=== PATIENT | female | born 1960 | race Caucasian/White ===

== ENCOUNTER 2018-12-13 08:34 | Observation (INO) | payer MEDICAID ==
--- NOTE | 2018-12-13 09:03 | EDM.PDOC ---
ED HPI GENERAL MEDICAL PROBLEM - General Chief Complaint: General Stated Complaint: Dizziness Time Seen by Provider: 12/13/18 08:52 Source of Information: Reports: Patient History Limitations: Reports: No Limitations - History of Present Illness INITIAL COMMENTS - FREE TEXT/NARRATIVE: Patient comes to ER via EMS complaining of headache and dizziness. Had episode of feeing cold/clammy and some left hand tingling earlier but that resolved. Symptoms noted after she woke up from her night's sleep this morning. [place] fine yesterday. States that last time she felt like this she had a UTI. Denies UTI complaints. Feels better if she lays down. Head rotation does not trigger dizziness/vertigo or make it worse. EKG performed by EMS showed normal sinus rhythm, no ectopy or acute ST changes. No fevers/chills. Has frontal bilateral headache. Denies vision changes. Says that she "saw spots " and felt like she might pass out when she first tried to get up today. No ear pain. No URI complaints. Resp negative for cough/wheeze/SOB or other changes. CV negative for chest pain or palpitations. No GI changes, denies nausea, emesis, stool change. Is eating and drinking well. Had some milk this morning in case her symptoms were due to hypoglycemia. No change noted afterward. No focal numbness/weakness or other neuro changes at this time. Patient does not check own blood sugars at home. Glucose monitor broken. Tells us she usually runs in the 200s when checked. Headache Pain Score (Numeric/FACES): 6 - Related Data Allergies Allergy/AdvReac Type Severity Reaction Status Date / Time Penicillins Allergy Rash Verified 12/13/18 08:36 Home Meds: Home Meds Simvastatin [Zocor] 40 mg PO BEDTIME 07/19/16 [History] metFORMIN [Glucophage] 1,000 mg PO BID 07/19/16 [History] Albuterol [Proventil HFA] 2 puff INH Q4H PRN 07/20/16 [History] Aspirin 81 mg PO DAILY 07/20/16 [History] Insulin Glargine,Hum.Rec.Anlog [Shawn Isaacs] 38 units SUBCUT DAILY 12/13/18 [History] Valproic Acid 500 mg PO BEDTIME 12/13/18 [History] Valproic Acid [Depakene] 250 mg PO BID@08,16 12/13/18 [History] Past Medical History HEENT History: Reports: Impaired Vision, Other (See Below) Other HEENT History: wears glasses Cardiovascular History: Reports: High Cholesterol Respiratory History: Reports: Asthma Gastrointestinal History: Reports: None Genitourinary History: Reports: Urinary Incontinence, Other (See Below) Other Genitourinary History: occasional bladder infections, Musculoskeletal History: Reports: Other (See Below) Other Musculoskeletal History: Lt ankle fracture Neurological History: Reports: Migraines, Seizure, Other (See Below) Other Neuro History: epilepsy Psychiatric History: Reports: None Endocrine/Metabolic History: Reports: Diabetes, Type II, IDDM, Obesity/BMI 30+ Hematologic History: Reports: None Immunologic History: Reports: None Oncologic (Cancer) History: Reports: None Dermatologic History: Reports: Eczema - Infectious Disease History Infectious Disease History: Reports: Chicken Pox, Influenza - Past Surgical History HEENT Surgical History: Reports: Other (See Below) Respiratory Surgical History: Reports: None GI Surgical History: Reports: None Musculoskeletal Surgical History: Reports: Carpal Tunnel Oncologic Surgical History: Reports: None Social & Family History - Tobacco Use Smoking Status *Q: Never Smoker - Caffeine Use Caffeine Use: Reports: Coffee - Alcohol Use Alcohol Use History: No - Recreational Drug Use Recreational Drug Use: No ED ROS GENERAL - Review of Systems Review Of Systems: ROS reveals no pertinent complaints other than HPI. ED EXAM, GENERAL - Physical Exam Exam: See Below Exam Limited By: No Limitations General Appearance: Alert, No Apparent Distress, Obese, Other (sleeping) Eye Exam: Bilateral Eye: EOMI, PERRL Ears: Normal External Exam, Normal Canal, Hearing Grossly Normal, Normal TMs Nose: No: Nasal Deformity, Nasal Swelling, Nasal Drainage Throat/Mouth: Normal Lips, Normal Voice, No Airway Compromise Head: Atraumatic, Normocephalic Neck: Supple, Non-Tender, Full Range of Motion Respiratory/Chest: No Respiratory Distress, Lungs Clear, Normal Breath Sounds, No Accessory Muscle Use, Chest Non-Tender Cardiovascular: Regular Rate, Rhythm, No Murmur Peripheral Pulses: 2+: Radial (L), Radial (R) GI/Abdominal: Normal Bowel Sounds, Soft, Non-Tender, No Distention (Female) Exam: Deferred Rectal (Female) Exam: Deferred Back Exam: No: CVA Tenderness (L), CVA Tenderness (R) Extremities: Non-Tender, No Pedal Edema, Normal Capillary Refill Neurological: Alert, Oriented, No Motor/Sensory Deficits, Other (able to ambulate to/from bathroom, slow gait, with assistance due to lightheadedness complaint) Psychiatric: Normal Affect, Normal Mood Skin Exam: Warm, Dry, Intact, Normal Color Course - Vital Signs Last Recorded V/S: Last Vital Signs Temp 36.4 C 12/13/18 08:34 Pulse 57 L 12/13/18 08:34 Resp 17 12/13/18 09:30 BP 143/63 H 12/13/18 09:30 Pulse Ox 96 12/13/18 09:30 - Orders/Labs/Meds Orders: Active Orders 24 hr Category Date Time Status COMPREHENSIVE METABOLIC PN,CMP [CHEM] Stat Lab 12/13/18 09:04 Ordered GLYCOSYLATED HEMOGLOBIN,HGBA1C [CHEM] Stat Lab 12/13/18 09:07 Ordered LACTIC ACID [CHEM] Stat Lab 12/13/18 09:06 Ordered TROPONIN I [CHEM] Stat Lab 12/13/18 09:04 Ordered UA W/MICROSCOPIC [URIN] Stat Lab 12/13/18 09:04 Ordered VALPROIC ACID [CHEM] Stat Lab 12/13/18 09:05 Ordered Labs: Laboratory Tests 12/13/18 12/13/18 Range/Units 09:10 09:20 WBC 7.7 (4.0-10.2) K/uL RBC 4.20 (3.77-5.09) M/uL Hgb 12.2 (11.7-15.5) g/dL Hct 36.6 (34.0-46.0) % MCV 87.1 (84.0-98.0) fL MCH 29.0 (28.2-33.3) pg MCHC 33.3 (31.7-36.0) g/dL RDW 14.8 H (11.2-14.1) % Plt Count 165 (150-350) K/uL Neut % (Auto) 52.3 (45.0-80.0) % Lymph % (Auto) 36.1 (10.0-50.0) % [place] % (Auto) 9.3 (2.0-14.0) % Eos % (Auto) 2.2 (0.0-5.0) % Baso % (Auto) 0.1 (0.0-2.0) % Neut # (Auto) 4.03 (1.40-7.00) K/uL Lymph # (Auto) 2.79 (0.50-3.50) K/uL [place] # (Auto) 0.72 (0.00-1.00) K/uL Eos # (Auto) 0.17 (0.00-0.50) K/uL Baso # (Auto) 0.01 (0.00-0.20) K/uL Urine Color Yellow Urine Appearance Cloudy Urine pH 5.5 (5.0-9.0) Ur Specific [place] 1.015 (1.005-1.030) Urine Protein Negative (NEGATIVE) mg/dL Urine Glucose (UA) 100 H (NEGATIVE) mg/dL Urine Ketones Trace H (NEGATIVE) mg/dL Urine Occult Blood Trace-intact H (NEGATIVE) Urine Nitrite Negative (NEGATIVE) Urine Bilirubin Negative (NEGATIVE) Urine Urobilinogen 1.0 (0.2-1.0) E.U./dL Ur Leukocyte Esterase Small H (NEGATIVE) - Re-Assessments/Exams Free Text/Narrative Re-Assessment/Exam: Exam and workup showed that UTI present. UC ordered. Glu 222 Lactic acid 2.9 A1c 10 Given complaint of dizziness, elevated lactic acid, and some concern about patient's ability for self care at home (as exhibited by poor glucose control and monitoring at home) it was felt that the best option for now would be to admit the pt to observation. She will be able to receive several doses of IV Rocephin and then be switched to oral medications at time of discharge. Recheck of lactic acid planned for tomorrow. IV fluids planned. Patient is aware that there is a statistical chance of cross reaction to Rocephin IV given her remote history of rash s/p PCN therapy. She is agreeable with trying Rocephin as first line antibiotic for the UTI given it is usually a very good choice in treating UTIs. Departure - Departure Time of Disposition: 09:58 Disposition: Refer to Observation Condition: Good Clinical Impression: UTI (urinary tract infection), bacterial - Discharge Information *PRESCRIPTION DRUG MONITORING PROGRAM REVIEWED*: Not Applicable *COPY OF PRESCRIPTION DRUG MONITORING REPORT IN PATIENT GREY: Not Applicable Referrals: Shanel Feliz PA [Primary Care Provider] - Forms: ED Department Discharge - Problem List & Annotations (1) UTI (urinary tract infection), bacterial SNOMED Code(s): 105154939 Code(s): N39.0 - URINARY TRACT INFECTION, SITE NOT SPECIFIED; A49.9 - BACTERIAL INFECTION, UNSPECIFIED Status: Acute Priority: High Current Visit: Yes Onset Date: ~12/13/18 Annotation/Comment:: Urine culture pending. Will initiate IV Rocephin and IV fluids. (2) Diabetes SNOMED Code(s): 07105890 Code(s): E11.9 - TYPE 2 DIABETES MELLITUS WITHOUT COMPLICATIONS Status: Chronic Priority: Medium Current Visit: Yes Annotation/Comment:: Very poor control. Patient is not monitoring own blood glucose levels at home and is making poor dietary choices. A1C is over 10 today. Will initiate regular bedside glucose checks and monitor patient's trends. 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 To follow up with primary clinic for continued care. Qualifiers: Hyperlipidemia type: unspecified Qualified Code(s): E78.5 - Hyperlipidemia , unspecified (4) Asthma SNOMED Code(s): 183068708 Code(s): J45.909 - UNSPECIFIED ASTHMA, UNCOMPLICATED Status: Chronic Priority: Low Current Visit: No Annotation/Comment:: Currently stable per patient Qualifiers: Asthma severity: unspecified severity Asthma complication type: uncomplicated (5) Epilepsy SNOMED Code(s): 29828131 Code(s): G40.909 - EPILEPSY, UNSP, NOT INTRACTABLE, WITHOUT STATUS EPILEPTICUS Status: Chronic Priority: Low Current Visit: No Annotation/ Comment:: Has been stable per patient. Qualifiers: Epilepsy type: unspecified Intractability: not intractable Status epilepticus: without status epilepticus Qualified Code(s): G40.909 - Epilepsy , unspecified, not intractable, without status epilepticus - Problem List Review Problem List Initiated/Reviewed/Updated: Yes - My Orders Last 24 Hours: My Active Orders 12/13/18 09:04 COMPREHENSIVE METABOLIC PN,CMP [CHEM] Stat TROPONIN I [CHEM] Stat UA W/MICROSCOPIC [URIN] Stat 12/13/18 09:05 VALPROIC ACID [CHEM] Stat 12/13/18 09:06 LACTIC ACID [CHEM] Stat 12/13/18 09:07 GLYCOSYLATED HEMOGLOBIN,HGBA1C [CHEM] Stat - Assessment/Plan Admission H&P: Please use this note as an admission H&P Last 24 Hours: My Active Orders 12/13/18 09:04 COMPREHENSIVE METABOLIC PN,CMP [CHEM] Stat TROPONIN I [CHEM] Stat UA W/MICROSCOPIC [URIN] Stat 12/13/18 09:05 VALPROIC ACID [CHEM] Stat 12/13/18 09:06 LACTIC ACID [CHEM] Stat 12/13/18 09:07 GLYCOSYLATED HEMOGLOBIN,HGBA1C [CHEM] Stat Assessment:: as above. UTI. Poorly controlled diabetes. Plan: As above. Anticipate 24-48 hours of inpatient observation. Patient stable and suitable for generalized supervision.
[2018-12-13 09:36] LABS: HEMOGLOBIN A1C 10.3 % (4.3-5.7)
[2018-12-13] MEDS ORDERED: cefTRIAXone 1 GM in Sodium Chloride 0.9% 100 ML IV ONE (09:46)
[2018-12-13] MEDS ORDERED: Ondansetron 4 MG Tab.DIS PO PRN (11:15)
[2018-12-13] MEDS ORDERED: Acetaminophen 325 MG Tab PO PRN (11:15)
[2018-12-13] MEDS ORDERED: Ondansetron 4 MG/2 ML SDV IVPUSH PRN (11:15)
[2018-12-13] MEDS ORDERED: Sodium Chloride 0.9% 1,000 ML IV ONE (11:19)
[2018-12-13] MEDS: Valproic Acid 250 MG Cap PO SCH ×2 (16:16→19:51)
[2018-12-13] MEDS: Insulin Regular, Human 100 Units/ML 3 ML Vial SUBCUT SCH (17:05)
[2018-12-13] MEDS: metFORMIN 500 MG Tab PO SCH (17:05)
[2018-12-13] MEDS: Simvastatin 20 MG Tab PO SCH (19:51)
[2018-12-14] MEDS: Aspirin 81 MG Tab.Chew PO SCH (08:40)
[2018-12-14] MEDS: Insulin Regular, Human 100 Units/ML 3 ML Vial SUBCUT SCH ×2 (08:40→17:23)
[2018-12-14] MEDS: Valproic Acid 250 MG Cap PO SCH ×3 (08:40→19:56)
[2018-12-14] MEDS: metFORMIN 500 MG Tab PO SCH ×2 (08:40→17:23)
[2018-12-14] MEDS ORDERED: cefTRIAXone 1 GM in Sodium Chloride 0.9% 100 ML IV ONE (10:00)
--- NOTE | 2018-12-14 13:41 | PCM.DCSUM1 ---
Discharge Summary - Hospital Course Brief History: Admitted for treatment of UTI in patient with DM, dizziness/ weakness. Diagnosis: Stroke: No - Discharge Data Discharge Date: 12/15/18 Discharge Disposition: Home, Self-Care 01 Condition: Good - Discharge Diagnosis/Problem(s) (1) UTI (urinary tract infection), bacterial SNOMED Code(s): 214666863 ICD Code: N39.0 - URINARY TRACT INFECTION, SITE NOT SPECIFIED; A49.9 - BACTERIAL INFECTION, UNSPECIFIED Status: Acute Priority: High Current Visit: Yes Onset Date: ~12/13/18 Problem Details: Urine culture pending. Receiving Rocephin. Will be discharged home on Macrobid. (2) Diabetes SNOMED Code(s): 91871450 ICD Code: E11.9 - TYPE 2 DIABETES MELLITUS WITHOUT COMPLICATIONS Status: Chronic Priority: Medium Current Visit: Yes Problem Details: Very poor control. Patient is not monitoring own blood glucose levels at home and is making poor dietary choices. A1C is over 10. To follow up closely with primary provider. 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 To follow up with primary clinic for continued care. Qualifiers: Hyperlipidemia type: unspecified Qualified Code(s): E78.5 - Hyperlipidemia , unspecified (4) Asthma SNOMED Code(s): 484992037 ICD Code: J45.909 - UNSPECIFIED ASTHMA, UNCOMPLICATED Status: Chronic Priority: Low Current Visit: No Problem Details: Currently stable per patient Qualifiers: Asthma severity: unspecified severity Asthma complication type: uncomplicated (5) Epilepsy SNOMED Code(s): 70699577 ICD Code: G40.909 - EPILEPSY, UNSP, NOT INTRACTABLE, WITHOUT STATUS EPILEPTICUS Status: Chronic Priority: Low Current Visit: No Problem Details: Has been stable per patient. Qualifiers: Epilepsy type: unspecified Intractability: not intractable Status epilepticus: without status epilepticus Qualified Code(s): G40.909 - Epilepsy , unspecified, not intractable, without status epilepticus - Patient Summary/Data Complications: none Hospital Course: Unremarkable hospital course. Dizziness and fatigue are improving. Patient appears to be ambulating well. Plan is to let patient return home tomorrow morning and continue oral antibiotic therapy for the UTI. - Patient Instructions Diet: Diabetic Diet Activity: As Tolerated Showering/Bathing: May Shower Other/Special Instructions: occupational therapy teacher the Macrobid prescription and start that Saturday12/15/18. Follow up as needed if symptoms do not resolve. Follow up with your clinic regarding your other chronic medical problems, including your diabetes. - Discharge Plan *PRESCRIPTION DRUG MONITORING PROGRAM REVIEWED*: Not Applicable *COPY OF PRESCRIPTION DRUG MONITORING REPORT IN PATIENT GREY: Not Applicable Prescriptions/Med Rec: Nitrofurantoin Monohyd/M-Cryst [Macrobid 100 mg Capsule] 100 mg PO Q12HR #10 capsule Home Medications: Home Meds Simvastatin [Zocor] 40 mg PO BEDTIME 07/19/16 [History] metFORMIN [Glucophage] 1,000 mg PO BID 07/19/16 [History] Albuterol [Proventil HFA] 2 puff INH Q4H PRN 07/20/16 [History] Aspirin 81 mg PO DAILY 07/20/16 [History] Insulin Glargine,Hum.Rec.Anlog [Tohannah Solrosa] 38 units SUBCUT DAILY 12/13/18 [History] Valproic Acid 500 mg PO BEDTIME 12/13/18 [History] Valproic Acid [Depakene] 250 mg PO BID@08,16 12/13/18 [History] Nitrofurantoin Monohyd/M-Cryst [Macrobid 100 mg Capsule] 100 mg PO Q12HR #10 capsule 12/14/18 [Rx] Patient Handouts: Ceftriaxone injection, Urinary Tract Infection, Adult Forms: ED Department Discharge Referrals: Shanel Feliz PA [Primary Care Provider] - - Discharge Summary/Plan Comment DC Time >30 min.: Yes (to be discharged in AM after morning Rocephin dose) - General Info Date of Service: 12/14/18 Admission Dx/Problem (Free Text: Patient complaining of dizziness/fatigue found to have UTI. Admitted due to accompanying dizziness/weakness and elevated Lactic acid level. Subjective Update: Feeling overall improved. Some residual dizziness and fatigue reported. - Review of Systems General: Reports: Fatigue, Malaise. Denies: Fever, Chills, Night Sweats HEENT: Reports: Glasses. Denies: Ear Pain, Headaches, Sinus Congestion, Rhinitis, Visual Changes Pulmonary: Reports: No Symptoms Cardiovascular: Reports: Lightheadedness. Denies: Chest Pain, Palpitations, Dyspnea on Exertion, Orthopnea Gastrointestinal: Reports: No Symptoms Genitourinary: Reports: No Symptoms Musculoskeletal: Reports: No Symptoms Skin: Reports: No Symptoms Neurological: Reports: Dizziness, Difficulty Walking (feels some dizziness with ambulation). Denies: Confusion, Headache, Syncope, Weakness Psychiatric: Reports: No Symptoms - Patient Data Vitals - Most Recent: Last Vital Signs Temp 36.2 C 12/14/18 08:00 Pulse 65 12/14/18 08:00 Resp 16 12/14/18 08:00 BP 146/73 H 12/14/18 08:00 Pulse Ox 100 12/14/18 08:00 Weight - Most Recent: 91.399 kg I&O - Last 24 hours: Intake & Output 12/13/18 12/14/18 12/14/18 22:59 06:59 14:59 Intake Total 310 480 Output Total 700 200 Balance -390 -200 480 Lab Results - Last 24 hrs: Laboratory Results - last 24 hr 12/13/18 12/13/18 12/14/18 Range/Units 16:52 20:02 07:20 WBC (4.0-10.2) K/uL RBC (3.77-5.09) M/uL Hgb (11.7-15.5) g/dL Hct (34.0-46.0) % MCV (84.0-98.0) fL MCH (28.2-33.3) pg MCHC (31.7-36.0) g/dL RDW (11.2-14.1) % Plt Count (150-350) K/uL Neut % (Auto) (45.0-80.0) % Lymph % (Auto) (10.0-50.0) % [place] % (Auto) (2.0-14.0) % Eos % (Auto) (0.0-5.0) % Baso % (Auto) (0.0-2.0) % Neut # (Auto) (1.40-7.00) K/uL Lymph # (Auto) (0.50-3.50) K/uL [place] # (Auto) (0.00-1.00) K/uL Eos # (Auto) (0.00-0.50) K/uL Baso # (Auto) (0.00-0.20) K/uL Sodium (136-145) mmol/L Potassium (3.5-5.1) mmol/L Chloride (98-107) mmol/L Carbon Dioxide (21.0-32.0) mmol/L BUN (7-18) mg/dL Creatinine (0.51-1.17) mg/dL Est Cr Clr Drug Dosing mL/min Estimated GFR (MDRD) mL/min Glucose (74-106) mg/dL POC Glucose 195 H 217 H (65-110) mg/dl Lactic Acid 1.6 (0.4-2.0) mmol/L Calcium (8.5-10.1) mg/dL 12/14/18 12/14/18 12/14/18 Range/Units 07:20 07:20 07:24 WBC 6.7 (4.0-10.2) K/uL RBC 4.43 (3.77-5.09) M/uL Hgb 12.8 (11.7-15.5) g/dL Hct 39.5 (34.0-46.0) % MCV 89.2 (84.0-98.0) fL MCH 28.9 (28.2-33.3) pg MCHC 32.4 (31.7-36.0) g/dL RDW 15.0 H (11.2-14.1) % Plt Count 164 (150-350) K/uL Neut % (Auto) 51.1 (45.0-80.0) % Lymph % (Auto) 39.3 (10.0-50.0) % [place] % (Auto) 7.6 (2.0-14.0) % Eos % (Auto) 1.9 (0.0-5.0) % Baso % (Auto) 0.1 (0.0-2.0) % Neut # (Auto) 3.44 (1.40-7.00) K/uL Lymph # (Auto) 2.65 (0.50-3.50) K/uL [place] # (Auto) 0.51 (0.00-1.00) K/uL Eos # (Auto) 0.13 (0.00-0.50) K/uL Baso # (Auto) 0.01 (0.00-0.20) K/uL Sodium 140 (136-145) mmol/L Potassium 5.1 (3.5-5.1) mmol/L Chloride 103 (98-107) mmol/L Carbon Dioxide 29.6 (21.0-32.0) mmol/L BUN 17 (7-18) mg/dL Creatinine 1.24 H (0.51-1.17) mg/dL Est Cr Clr Drug Dosing 36.41 mL/min Estimated GFR (MDRD) 44 mL/min Glucose 145 H (74-106) mg/dL POC Glucose 160 H (65-110) mg/dl Lactic Acid (0.4-2.0) mmol/L Calcium 9.6 (8.5-10.1) mg/dL 12/14/18 Range/Units 11:34 WBC (4.0-10.2) K/uL RBC (3.77-5.09) M/uL Hgb (11.7-15.5) g/dL Hct (34.0-46.0) % MCV (84.0-98.0) fL MCH (28.2-33.3) pg MCHC (31.7-36.0) g/dL RDW (11.2-14.1) % Plt Count (150-350) K/uL Neut % (Auto) (45.0-80.0) % Lymph % (Auto) (10.0-50.0) % [place] % (Auto) (2.0-14.0) % Eos % (Auto) (0.0-5.0) % Baso % (Auto) (0.0-2.0) % Neut # (Auto) (1.40-7.00) K/uL Lymph # (Auto) (0.50-3.50) K/uL [place] # (Auto) (0.00-1.00) K/uL Eos # (Auto) (0.00-0.50) K/uL Baso # (Auto) (0.00-0.20) K/uL Sodium (136-145) mmol/L Potassium (3.5-5.1) mmol/L Chloride (98-107) mmol/L Carbon Dioxide (21.0-32.0) mmol/L BUN (7-18) mg/dL Creatinine (0.51-1.17) mg/dL Est Cr Clr Drug Dosing mL/min Estimated GFR (MDRD) mL/min Glucose (74-106) mg/dL POC Glucose 146 H (65-110) mg/dl Lactic Acid (0.4-2.0) mmol/L Calcium (8.5-10.1) mg/dL Med Orders - Current: Current Medications Acetaminophen (Tylenol) 650 mg PO Q4H PRN PRN Reason: Pain (Mild 1-3)/fever Last Admin: 12/13/18 14:36 Dose: 650 mg Aspirin (Aspirin) 81 mg PO DAILY [facility] Last Admin: 12/14/18 08:40 Dose: 81 mg Insulin Human Regular (Humulin R) 0 unit SUBCUT BIDAC [facility]; Protocol Last Admin: 12/14/18 08:40 Dose: 3 units Metformin HCl (Glucophage) 1,000 mg PO BID [facility] Last Admin: 12/14/18 08:40 Dose: 1,000 mg Ondansetron HCl (Zofran Odt) 4 mg PO Q6H PRN PRN Reason: Nausea/Vomiting Last Admin: 12/13/18 12:01 Dose: 4 mg Ondansetron HCl (Zofran) 4 mg IVPUSH Q6H PRN PRN Reason: Nausea/Vomiting Simvastatin (Zocor) 40 mg PO BEDTIME [facility] Last Admin: 12/13/18 19:51 Dose: 40 mg Valproic Acid (Depakene) 250 mg PO BID@08,16 [facility] Last Admin: 12/14/18 08:40 Dose: 250 mg Valproic Acid (Depakene) 500 mg PO BEDTIME [facility] Last Admin: 12/13/18 19:51 Dose: 500 mg Discontinued Medications Ceftriaxone Sodium 1 gm/ (Sodium Chloride) 100 mls @ 200 mls/hr IV ONETIME ONE Stop: 12/13/18 10:15 Last Admin: 12/13/18 10:31 Dose: 200 mls/hr Ceftriaxone Sodium 1 gm/ (Sodium Chloride) 100 mls @ 200 mls/hr IV ONETIME ONE Stop: 12/14/18 10:29 Last Admin: 12/14/18 09:46 Dose: 200 mls/hr Sodium Chloride (Normal Saline) 1,000 mls @ 150 mls/hr IV .BOLUS ONE Stop: 12/13/18 17:58 Last Admin: 12/13/18 11:55 Dose: 150 mls/hr - Exam General: Reports: Alert, Oriented, Cooperative, No Acute Distress HEENT: Reports: Pupils Equal, Pupils Reactive, EOMI, Mucous Membr. Moist/[place] Neck: Reports: Supple Lungs: Reports: Clear to Auscultation, Normal Respiratory Effort Cardiovascular: Reports: Regular Rate, Regular Rhythm GI/Abdominal Exam: Normal Bowel Sounds, Soft, Non-Tender (Female) Exam: Deferred Rectal (Female) Exam: Deferred Back Exam: Denies: CVA Tenderness (L), CVA Tenderness (R) Extremities: Non-Tender, Normal Capillary Refill Skin: Reports: Warm, Dry Neurological: Reports: No New Focal Deficit Psy/Mental Status: Reports: Alert, Normal Affect, Normal Mood
[2018-12-14] MEDS: Sodium Chloride 0.9% 10 ML Syringe FLUSH SCH (19:45)
[2018-12-14] MEDS: Simvastatin 20 MG Tab PO SCH (19:56)
[2018-12-15] MEDS: Sodium Chloride 0.9% 10 ML Syringe FLUSH SCH (07:51)
[2018-12-15] MEDS: Insulin Regular, Human 100 Units/ML 3 ML Vial SUBCUT SCH (07:51)
[2018-12-15] MEDS: Valproic Acid 250 MG Cap PO SCH (07:52)
[2018-12-15] MEDS: Aspirin 81 MG Tab.Chew PO SCH (07:52)
[2018-12-15] MEDS: metFORMIN 500 MG Tab PO SCH (07:52)
[2018-12-15] MEDS ORDERED: cefTRIAXone 1 GM in Sodium Chloride 0.9% 100 ML IV ONE (08:00)
[2018-12-15 09:28] VITALS: BP 155/72
== END 2018-12-15 09:44 | disposition home or self-care (01) ==
LOC: LL.ED 08:34 → LL.MS 09:45 → UNDOADMOB 09:45
PROVIDERS: ADMIT Emergency Medicine; ATTEND Emergency Medicine
DX: N39.0 Urinary tract infection, site not specified (principal); E11.9 Type 2 diabetes mellitus without complications; J45.909 Unspecified asthma, uncomplicated; G40.909 Epilepsy, unspecified, not intractable, without status epilepticus; E66.9 Obesity, unspecified; Z68.38 Body mass index [BMI] 38.0-38.9, adult; E78.00 Pure hypercholesterolemia, unspecified; Z79.4 Long term (current) use of insulin; Z79.82 Long term (current) use of aspirin; Z79.899 Other long term (current) drug therapy; Z88.0 Allergy status to penicillin
CPT/HCPCS: 36415; 80048; 80053; 80164; 81001; 82962; 83036; 83605; 84484; 85025; 87086; 87088; 87186; 96361; 96365; 96366; 99285; A9270-GY; G0378; J0696; J1815-GY; J7030; J7050

== ENCOUNTER 2018-12-16 08:07 | Inpatient (IN) | payer MEDICAID ==
[2018-12-16] MEDS ORDERED: Sodium Chloride 0.9% 1,000 ML IV ONE (08:18)
[2018-12-16] MEDS ORDERED: Acetaminophen 325 MG Tab PO ONE (08:19)
[2018-12-16] MEDS ORDERED: Ciprofloxacin in D5W 400 MG in Premix Bag 1 BAG IV ONE ×2 (09:31)
--- NOTE | 2018-12-16 09:40 | EDM.PDOC ---
ED HPI GENERAL MEDICAL PROBLEM - General Chief Complaint: General Stated Complaint: altered mental status Time Seen by Provider: 12/16/18 08:17 Source of Information: Reports: Patient History Limitations: Reports: No Limitations - History of Present Illness INITIAL COMMENTS - FREE TEXT/NARRATIVE: Pt seen in ER today with weakness, confusion decreased appetite and fever EMS states fever to 101 Pt discharged yesterday after being treated for UTI Received 3 doses of Rocephin in hospital and started on Macrobid outpatient Pt states she feels much worse today All sensitive on culture and sensitivity Onset: Gradual Duration: Day(s): Location: Reports: Generalized Quality: Reports: Ache, Throbbing Severity: Moderate Worsens with: Reports: Movement Associated Symptoms: Reports: Confusion, Fever/Chills, Loss of Appetite, Malaise , Weakness Treatments RETURN TO FACTORY CLERK: Reports: Other (see below) (Macrobid) - Related Data Allergies Allergy/AdvReac Type Severity Reaction Status Date / Time Penicillins Allergy Rash Verified 12/16/18 08:11 Home Meds: Home Meds Simvastatin [Zocor] 40 mg PO BEDTIME 07/19/16 [History] metFORMIN [Glucophage] 1,000 mg PO BID 07/19/16 [History] Albuterol [Proventil HFA] 2 puff INH Q4H PRN 07/20/16 [History] Aspirin 81 mg PO DAILY 07/20/16 [History] Insulin Glargine,Hum.Rec.Anlog [Toujeo Solostar] 38 units SUBCUT DAILY 12/13/18 [History] Valproic Acid 500 mg PO BEDTIME 12/13/18 [History] Valproic Acid [Depakene] 250 mg PO BID@,16 12/13/18 [History] Nitrofurantoin Monohyd/M-Cryst [Macrobid 100 mg Capsule] 100 mg PO Q12HR #10 capsule 12/14/18 [Rx] Past Medical History HEENT History: Reports: Impaired Vision, Other (See Below) Other HEENT History: wears glasses Cardiovascular History: Reports: High Cholesterol Respiratory History: Reports: Asthma Gastrointestinal History: Reports: None Genitourinary History: Reports: Urinary Incontinence, Other (See Below) Other Genitourinary History: occasional bladder infections, Musculoskeletal History: Reports: Other (See Below) Other Musculoskeletal History: Lt ankle fracture Neurological History: Reports: Migraines, Seizure, Other (See Below) Other Neuro History: epilepsy Psychiatric History: Reports: None Endocrine/Metabolic History: Reports: Diabetes, Type II, IDDM, Obesity/BMI 30+ Hematologic History: Reports: None Immunologic History: Reports: None Oncologic (Cancer) History: Reports: None Dermatologic History: Reports: Eczema - Infectious Disease History Infectious Disease History: Reports: Chicken Pox, Influenza - Past Surgical History HEENT Surgical History: Reports: Other (See Below) Respiratory Surgical History: Reports: None GI Surgical History: Reports: None Musculoskeletal Surgical History: Reports: Carpal Tunnel Oncologic Surgical History: Reports: None Social & Family History - Caffeine Use Caffeine Use: Reports: Coffee ED ROS GENERAL - Review of Systems Review Of Systems: See Below Constitutional: Reports: Fever, Chills Respiratory: Reports: Shortness of Breath Cardiovascular: Reports: No Symptoms GI/Abdominal: Reports: Abdominal Pain, Decreased Appetite : Reports: Dysuria Musculoskeletal: Reports: Muscle Stiffness Neurological: Reports: Confusion Psychiatric: Reports: No Symptoms ED EXAM, GENERAL - Physical Exam Exam: See Below Exam Limited By: No Limitations General Appearance: Moderate Distress Eye Exam: Bilateral Eye: PERRL Ear Exam: Bilateral Ear: TM normal Nose: Normal Inspection Throat/Mouth: Normal Oropharynx Neck: Supple Respiratory/Chest: Crackles Cardiovascular: Regular Rate, Rhythm GI/Abdominal: Soft, Distended, Tender Back Exam: Normal Inspection Extremities: Normal Inspection Neurological: Slow to Respond Psychiatric: Normal Affect Course - Vital Signs Last Recorded V/S: Last Vital Signs Temp 37.8 C 12/16/18 08:14 Pulse 104 H 12/16/18 08:14 Resp 20 12/16/18 08:14 BP 133/69 12/16/18 08:14 Pulse Ox 96 12/16/18 08:14 - Orders/Labs/Meds Orders: Active Orders 24 hr Category Date Time Status Chest 1V Frontal [CR] Stat Exams 12/16/18 08:46 Taken CULTURE BLOOD [BC] Stat Lab 12/16/18 08:35 Received CULTURE BLOOD [BC] Stat Lab 12/16/18 08:50 Received Ciprofloxacin in D5W [Cipro in D5W 400 MG/200 ML] 400 Med 12/16/18 09:31 Active mg Premix Bag 1 bag IV ONETIME Blood Culture x2 Reflex Set [OM.PC] Stat Oth 12/16/18 08:18 Ordered Medication Orders Ciprofloxacin/Dextrose 400 mg/ (Premix) 200 mls @ 200 mls/hr IV ONETIME ONE Stop: 12/16/18 10:30 Labs: Laboratory Tests 12/16/18 12/16/18 12/16/18 Range/Units 08:35 08:35 08:35 WBC 8.6 (4.0-10.2) K/uL RBC 4.74 (3.77-5.09) M/uL Hgb 13.7 (11.7-15.5) g/dL Hct 40.8 (34.0-46.0) % MCV 86.1 D (84.0-98.0) fL MCH 28.9 (28.2-33.3) pg MCHC 33.6 (31.7-36.0) g/dL RDW 15.2 H (11.2-14.1) % Plt Count 149 L (150-350) K/uL Neut % (Auto) 89.0 H (45.0-80.0) % Lymph % (Auto) 4.3 L (10.0-50.0) % [place] % (Auto) 6.6 (2.0-14.0) % Eos % (Auto) 0.0 (0.0-5.0) % Baso % (Auto) 0.1 (0.0-2.0) % Neut # (Auto) 7.63 H (1.40-7.00) K/uL Lymph # (Auto) 0.37 L (0.50-3.50) K/uL [place] # (Auto) 0.57 (0.00-1.00) K/uL Eos # (Auto) 0.00 (0.00-0.50) K/uL Baso # (Auto) 0.01 (0.00-0.20) K/uL Sodium 135 L (136-145) mmol/L Potassium 4.9 (3.5-5.1) mmol/L Chloride 96 L (98-107) mmol/L Carbon Dioxide 25.2 (21.0-32.0) mmol/L BUN 24 H (7-18) mg/dL Creatinine 1.44 H (0.51-1.17) mg/dL Est Cr Clr Drug Dosing 31.35 mL/min Estimated GFR (MDRD) 37 mL/min Glucose 187 H (74-106) mg/dL Lactic Acid 3.3 H (0.4-2.0) mmol/L Calcium 9.7 (8.5-10.1) mg/dL Total Bilirubin 0.6 (0.2-1.0) mg/dL AST 26 (15-37) U/L ALT 26 (12-78) U/L Alkaline Phosphatase 94 (46-116) IU/L Total Protein 8.3 H (6.4-8.2) g/dL Albumin 3.8 (3.4-5.0) g/dL Meds: Medications Generic Name Dose Route Start Last Admin Trade Name Freq PRN Reason Stop Dose Admin Ciprofloxacin/Dextrose 400 mg/ 200 mls @ 200 mls/hr 12/16/18 09:31 Premix IV 12/16/18 10:30 ONETIME ONE Discontinued Medications Generic Name Dose Route Start Last Admin Trade Name Freq PRN Reason Stop Dose Admin Acetaminophen 650 mg 12/16/18 08:19 Tylenol PO 12/16/18 08:20 NOW ONE Sodium Chloride 1,000 mls @ 1,000 mls/hr 12/16/18 08:18 12/16/18 08:46 Normal Saline IV 12/16/18 09:17 1,000 mls/hr .BOLUS ONE Administration - Re-Assessments/Exams Free Text/Narrative Re-Assessment/Exam: 12/16/18 09:46 Pt with elevated Lactic acid and BUN/Cr Pt given IV Cipro in ER and IV NS as well Pt will be admitted with UTI and failure of outpt therapy Departure - Departure Time of Disposition: 10:00 Disposition: Admitted As Inpatient 64 Clinical Impression: UTI, Urinary tract infectious disease - Discharge Information *PRESCRIPTION DRUG MONITORING PROGRAM REVIEWED*: Not Applicable *COPY OF PRESCRIPTION DRUG MONITORING REPORT IN PATIENT GREY: Not Applicable Referrals: Shanel Feliz PA [Primary Care Provider] - - Problem List & Annotations (1) UTI (urinary tract infection), bacterial SNOMED Code(s): 484091036 Code(s): N39.0 - URINARY TRACT INFECTION, SITE NOT SPECIFIED; A49.9 - BACTERIAL INFECTION, UNSPECIFIED Status: Acute Priority: High Current Visit: No Onset Date: ~12/13/18 Annotation/Comment:: Pt seen in ER with worsening symptoms Will be admitted - Problem List Review Problem List Initiated/Reviewed/Updated: Yes - My Orders Last 24 Hours: My Active Orders 12/16/18 08:18 Blood Culture x2 Reflex Set [OM.PC] Stat 12/16/18 08:35 CULTURE BLOOD [BC] Stat 12/16/18 08:46 Chest 1V Frontal [CR] Stat 12/16/18 08:50 CULTURE BLOOD [BC] Stat 12/16/18 09:31 Ciprofloxacin in D5W [Cipro in D5W 400 MG/200 ML] 400 mg Premix Bag 1 bag IV ONETIME - Assessment/Plan Admission H&P: Please use this note as an admission H&P Last 24 Hours: My Active Orders 12/16/18 08:18 Blood Culture x2 Reflex Set [OM.PC] Stat 12/16/18 08:35 CULTURE BLOOD [BC] Stat 12/16/18 08:46 Chest 1V Frontal [CR] Stat 12/16/18 08:50 CULTURE BLOOD [BC] Stat 12/16/18 09:31 Ciprofloxacin in D5W [Cipro in D5W 400 MG/200 ML] 400 mg Premix Bag 1 bag IV ONETIME
[2018-12-16] MEDS ORDERED: Ondansetron 4 MG Tab.DIS PO PRN (09:50)
[2018-12-16] MEDS ORDERED: metFORMIN 500 MG Tab PO SCH (10:00)
[2018-12-16] MEDS ORDERED: Albuterol 8 GM Inhaler INH PRN (10:05)
[2018-12-16] MEDS: Dextrose 5%-0.45% NaCl 1,000 ML IV SCH ×2 (11:08→23:19)
[2018-12-16] MEDS: Insulin Glarg,Human.Rec.Analog 100 UNIT/ML ML SUBCUT SCH (11:08)
[2018-12-16] MEDS: Valproic Acid 250 MG Cap PO SCH ×2 (15:35→19:16)
[2018-12-16] MEDS: Acetaminophen 325 MG Tab PO PRN (17:35)
[2018-12-16] MEDS: Ciprofloxacin in D5W 400 MG in Premix Bag 1 BAG IV SCH ×2 (19:16)
[2018-12-16] MEDS ORDERED: Simvastatin 20 MG Tab PO SCH (20:00)
[2018-12-17] MEDS: Valproic Acid 250 MG Cap PO SCH ×3 (07:38→19:30)
[2018-12-17] MEDS: Ciprofloxacin in D5W 400 MG in Premix Bag 1 BAG IV SCH ×4 (07:38→19:30)
[2018-12-17] MEDS: Insulin Glarg,Human.Rec.Analog 100 UNIT/ML ML SUBCUT SCH (07:39)
[2018-12-17] MEDS ORDERED: Aspirin 81 MG Tab.Chew PO SCH (08:00)
[2018-12-17] MEDS ORDERED: Sodium Chloride 0.9% 500 ML IV SCH (09:45)
[2018-12-17] MEDS ORDERED: Sodium Chloride 0.9% 1,000 ML IV SCH (10:15)
--- NOTE | 2018-12-17 21:57 | PCM.PN ---
- General Info Date of Service: 12/17/18 Functional Status: Reports: Pain Controlled, Tolerating Diet, Urinating - Review of Systems General: Reports: Other (some neck pain from pillow) HEENT: Reports: No Symptoms Pulmonary: Reports: No Symptoms Cardiovascular: Reports: No Symptoms Gastrointestinal: Reports: No Symptoms Genitourinary: Reports: No Symptoms Musculoskeletal: Reports: Neck Pain Skin: Reports: No Symptoms Neurological: Reports: No Symptoms Psychiatric: Reports: No Symptoms - Patient Data Vitals - Most Recent: Last Vital Signs Temp 97.3 F 12/17/18 19:56 Pulse 67 12/17/18 19:56 Resp 17 12/17/18 19:56 BP 140/72 12/17/18 19:56 Pulse Ox 97 12/17/18 19:56 Weight - Most Recent: 200 lb 8 oz I&O - Last 24 Hours: Intake & Output 12/17/18 12/17/18 12/17/18 06:59 14:59 22:59 Intake Total 1833 1360 200 Output Total 800 700 875 Balance 1033 660 -675 Lab Results Last 24 Hours: Laboratory Results - last 24 hr 12/17/18 12/17/18 12/17/18 Range/Units 06:50 06:50 06:50 WBC 5.8 (4.0-10.2) K/uL RBC 4.05 (3.77-5.09) M/uL Hgb 11.8 D (11.7-15.5) g/dL Hct 35.0 (34.0-46.0) % MCV 86.4 (84.0-98.0) fL MCH 29.1 (28.2-33.3) pg MCHC 33.7 (31.7-36.0) g/dL RDW 15.3 H (11.2-14.1) % Plt Count 116 L (150-350) K/uL Neut % (Auto) 69.8 (45.0-80.0) % Lymph % (Auto) 20.2 (10.0-50.0) % [place] % (Auto) 8.4 (2.0-14.0) % Eos % (Auto) 1.4 (0.0-5.0) % Baso % (Auto) 0.2 (0.0-2.0) % Neut # (Auto) 4.07 (1.40-7.00) K/uL Lymph # (Auto) 1.18 (0.50-3.50) K/uL [place] # (Auto) 0.49 (0.00-1.00) K/uL Eos # (Auto) 0.08 (0.00-0.50) K/uL Baso # (Auto) 0.01 (0.00-0.20) K/uL Sodium 136 (136-145) mmol/L Potassium 4.1 (3.5-5.1) mmol/L Chloride 100 (98-107) mmol/L Carbon Dioxide 24.3 (21.0-32.0) mmol/L BUN 19 H (7-18) mg/dL Creatinine 1.24 H (0.51-1.17) mg/dL Est Cr Clr Drug Dosing 36.45 mL/min Estimated GFR (MDRD) 44 mL/min Glucose 178 H (74-106) mg/dL POC Glucose (65-110) mg/dl Lactic Acid 2.0 (0.4-2.0) mmol/L Calcium 8.3 L (8.5-10.1) mg/dL Total Bilirubin 0.5 (0.2-1.0) mg/dL AST 37 (15-37) U/L ALT 26 (12-78) U/L Alkaline Phosphatase 70 (46-116) IU/L Creatine Kinase 693 H (26-308) U/L C-Reactive Protein 11.6 H (<=0.9) mg/dL Total Protein 6.9 (6.4-8.2) g/dL Albumin 2.9 L (3.4-5.0) g/dL Valproic Acid 64 (50-100) ug/mL 12/17/18 12/17/18 12/17/18 Range/Units 07:17 11:09 16:49 WBC (4.0-10.2) K/uL RBC (3.77-5.09) M/uL Hgb (11.7-15.5) g/dL Hct (34.0-46.0) % MCV (84.0-98.0) fL MCH (28.2-33.3) pg MCHC (31.7-36.0) g/dL RDW (11.2-14.1) % Plt Count (150-350) K/uL Neut % (Auto) (45.0-80.0) % Lymph % (Auto) (10.0-50.0) % [place] % (Auto) (2.0-14.0) % Eos % (Auto) (0.0-5.0) % Baso % (Auto) (0.0-2.0) % Neut # (Auto) (1.40-7.00) K/uL Lymph # (Auto) (0.50-3.50) K/uL [place] # (Auto) (0.00-1.00) K/uL Eos # (Auto) (0.00-0.50) K/uL Baso # (Auto) (0.00-0.20) K/uL Sodium (136-145) mmol/L Potassium (3.5-5.1) mmol/L Chloride (98-107) mmol/L Carbon Dioxide (21.0-32.0) mmol/L BUN (7-18) mg/dL Creatinine (0.51-1.17) mg/dL Est Cr Clr Drug Dosing mL/min Estimated GFR (MDRD) mL/min Glucose (74-106) mg/dL POC Glucose 188 H 159 H 237 H (65-110) mg/dl Lactic Acid (0.4-2.0) mmol/L Calcium (8.5-10.1) mg/dL Total Bilirubin (0.2-1.0) mg/dL AST (15-37) U/L ALT (12-78) U/L Alkaline Phosphatase (46-116) IU/L Creatine Kinase (26-308) U/L C-Reactive Protein (<=0.9) mg/dL Total Protein (6.4-8.2) g/dL Albumin (3.4-5.0) g/dL Valproic Acid (50-100) ug/mL 12/17/18 Range/Units 20:29 WBC (4.0-10.2) K/uL RBC (3.77-5.09) M/uL Hgb (11.7-15.5) g/dL Hct (34.0-46.0) % MCV (84.0-98.0) fL MCH (28.2-33.3) pg MCHC (31.7-36.0) g/dL RDW (11.2-14.1) % Plt Count (150-350) K/uL Neut % (Auto) (45.0-80.0) % Lymph % (Auto) (10.0-50.0) % [place] % (Auto) (2.0-14.0) % Eos % (Auto) (0.0-5.0) % Baso % (Auto) (0.0-2.0) % Neut # (Auto) (1.40-7.00) K/uL Lymph # (Auto) (0.50-3.50) K/uL [place] # (Auto) (0.00-1.00) K/uL Eos # (Auto) (0.00-0.50) K/uL Baso # (Auto) (0.00-0.20) K/uL Sodium (136-145) mmol/L Potassium (3.5-5.1) mmol/L Chloride (98-107) mmol/L Carbon Dioxide (21.0-32.0) mmol/L BUN (7-18) mg/dL Creatinine (0.51-1.17) mg/dL Est Cr Clr Drug Dosing mL/min Estimated GFR (MDRD) mL/min Glucose (74-106) mg/dL POC Glucose 290 H* (65-110) mg/dl Lactic Acid (0.4-2.0) mmol/L Calcium (8.5-10.1) mg/dL Total Bilirubin (0.2-1.0) mg/dL AST (15-37) U/L ALT (12-78) U/L Alkaline Phosphatase (46-116) IU/L Creatine Kinase (26-308) U/L C-Reactive Protein (<=0.9) mg/dL Total Protein (6.4-8.2) g/dL Albumin (3.4-5.0) g/dL Valproic Acid (50-100) ug/mL [place] Results Last 24 Hours: Microbiology 12/16/18 08:50 Aerobic Blood Culture - Preliminary Blood - Venous - Lab Draw NO GROWTH AFTER 1 DAY Anaerobic Blood Culture - Preliminary NO GROWTH AFTER 1 DAY 12/16/18 08:35 Aerobic Blood Culture - Preliminary Blood - Venous NO GROWTH AFTER 1 DAY Anaerobic Blood Culture - Preliminary NO GROWTH AFTER 1 DAY Med Orders - Current: Current Medications Acetaminophen (Tylenol) 650 mg PO Q4H PRN PRN Reason: Pain (Mild 1-3)/fever Last Admin: 12/16/18 17:35 Dose: 650 mg Albuterol (Ventolin Hfa) 0 gm INH Q4H PRN PRN Reason: shortness of breath Ciprofloxacin/Dextrose 400 mg/ (Premix) 200 mls @ 200 mls/hr IV Q12HR [facility] Last Admin: 12/17/18 19:30 Dose: 200 mls/hr Insulin Glargine (Lantus) 30 unit SUBCUT DAILY [facility] Last Admin: 12/17/18 07:39 Dose: 30 unit Ondansetron HCl (Zofran Odt) 4 mg PO Q6H PRN PRN Reason: Nausea/Vomiting Sodium Chloride (Saline Flush) 10 ml FLUSH ASDIRECTED PRN PRN Reason: Keep Vein Open Valproic Acid (Depakene) 250 mg PO BID@08,16 [facility] Last Admin: 12/17/18 16:10 Dose: 250 mg Valproic Acid (Depakene) 500 mg PO BEDTIME [facility] Last Admin: 12/17/18 19:30 Dose: 500 mg Discontinued Medications Acetaminophen (Tylenol) 650 mg PO NOW ONE Stop: 12/16/18 08:20 Last Admin: 12/16/18 09:44 Dose: 650 mg Aspirin (Aspirin) 81 mg PO DAILY [facility] Sodium Chloride (Normal Saline) 1,000 mls @ 1,000 mls/hr IV .BOLUS ONE Stop: 12/16/18 09:17 Last Admin: 12/16/18 08:46 Dose: 1,000 mls/hr Ciprofloxacin/Dextrose 400 mg/ (Premix) 200 mls @ 200 mls/hr IV ONETIME ONE Stop: 12/16/18 10:30 Last Admin: 12/16/18 09:44 Dose: 200 mls/hr Dextrose/Sodium Chloride (Dextrose 5%-1/2 Ns) 1,000 mls @ 125 mls/hr IV ASDIRECTED [facility] Last Admin: 12/16/18 23:19 Dose: 125 mls/hr Sodium Chloride (Normal Saline) 1,000 mls @ 100 mls/hr IV ASDIRECTED [facility] Last Admin: 12/17/18 11:01 Dose: 100 mls/hr Metformin HCl (Glucophage) 1,000 mg PO BIDMEALS [facility] Last Admin: 12/16/18 11:07 Dose: 1,000 mg Simvastatin (Zocor) 40 mg PO BEDTIME [facility]STIAN - Exam General: Alert, Cooperative, No Acute Distress HEENT: Mucous Membr. Moist/[place] Neck: Trachea Midline, No JVD Lungs: Clear to Auscultation, Normal Respiratory Effort Cardiovascular: Regular Rate, Regular Rhythm (Female) Exam: Deferred Back Exam: Normal Inspection Extremities: Normal Inspection, Non-Tender Skin: Warm, Dry, Intact Neurological: No New Focal Deficit Psy/Mental Status: Alert, Normal Affect, Normal Mood - Problem List & Annotations (1) E. coli urinary tract infection SNOMED Code(s): 445049304 Code(s): N39.0 - URINARY TRACT INFECTION, SITE NOT SPECIFIED; B96.20 - UNSP ESCHERICHIA COLI THE CAUSE OF DISEASES CLASSD ELSWHR Status: Acute Priority: High Current Visit: Yes (2) Sepsis SNOMED Code(s): 08520152 Code(s): A41.9 - SEPSIS, UNSPECIFIED ORGANISM Status: Acute Current Visit : No Qualifiers: Sepsis type: sepsis due to unspecified organism Qualified Code(s): A41.9 - Sepsis, unspecified organism (3) Asthma SNOMED Code(s): 721723966 Code(s): J45.909 - UNSPECIFIED ASTHMA, UNCOMPLICATED Status: Chronic Priority: Low Current Visit: No Qualifiers: Asthma severity: unspecified severity Asthma complication type: uncomplicated Annotation/Comment:: Currently stable per patient (4) Diabetes SNOMED Code(s): 45456084 Code(s): E11.9 - TYPE 2 DIABETES MELLITUS WITHOUT COMPLICATIONS Status: Chronic Priority: Medium Current Visit: No Qualifiers: Diabetes mellitus type: type 2 Diabetes mellitus skilled nursing insulin use: with 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 Patient is not monitoring own blood glucose levels at home and is making poor dietary choices. A1C is over 10. To follow up closely with primary provider. (5) Epilepsy SNOMED Code(s): 67415655 Code(s): G40.909 - EPILEPSY, UNSP, NOT INTRACTABLE, WITHOUT STATUS EPILEPTICUS Status: Chronic Priority: Low Current Visit: No Qualifiers: Epilepsy type: unspecified Intractability: not intractable Status epilepticus: without status epilepticus Qualified Code(s): G40.909 - Epilepsy , unspecified, not intractable, without status epilepticus Annotation/Comment:: Has been stable per patient. (6) Hyperlipidemia SNOMED Code(s): 96755054 Code(s): E78.5 - HYPERLIPIDEMIA, UNSPECIFIED Status: Chronic Priority: Low Current Visit: No Qualifiers: Hyperlipidemia type: unspecified Qualified Code(s): E78.5 - Hyperlipidemia , unspecified Annotation/Comment:: Currently on a statin. To follow up with primary clinic for continued care. - Problem List Review Problem List Initiated/Reviewed/Updated: Yes - My Orders Last 24 Hours: My Active Orders 12/18/18 05:11 CBC WITH AUTO DIFF [HEME] DAILY CMP [COMPREHENSIVE METABOLIC PN,CMP] [CHEM] DAILY CREATINE KINASE,CK [CHEM] Routine CRP [C-REACTIVE PROTEIN] [CHEM] DAILY 12/19/18 05:11 CBC WITH AUTO DIFF [HEME] DAILY CMP [COMPREHENSIVE METABOLIC PN,CMP] [CHEM] DAILY CRP [C-REACTIVE PROTEIN] [CHEM] DAILY - Plan Plan:: 12/17/18 Gilma White MD She is feeling better today. Urine C&S E-coli ESBL. Cipro appears to be more effective then the rocephin, and macrodantin. Better oral intake so will discontinue the maintenance IV fluids. Metformin stopped due to elevated creatinine. THis was discussed with her. Continue inpatient status with IV antibiotics.
[2018-12-18] MEDS: Valproic Acid 250 MG Cap PO SCH ×3 (08:06→19:05)
[2018-12-18] MEDS: Ciprofloxacin in D5W 400 MG in Premix Bag 1 BAG IV SCH ×4 (08:06→19:05)
[2018-12-18] MEDS: Acetaminophen 325 MG Tab PO PRN (08:08)
[2018-12-18] MEDS: Sodium Chloride 0.9% 10 ML Syringe FLUSH SCH ×2 (08:09→19:05)
[2018-12-18] MEDS: Insulin Glarg,Human.Rec.Analog 100 UNIT/ML ML SUBCUT SCH (08:09)
[2018-12-18] MEDS: Sodium Chloride 0.9% 10 ML Syringe FLUSH PRN (08:10)
--- NOTE | 2018-12-18 12:47 | PCM.PN ---
- General Info Date of Service: 12/18/18 Functional Status: Reports: Pain Controlled, Tolerating Diet, Urinating - Review of Systems General: Reports: No Symptoms HEENT: Reports: No Symptoms Pulmonary: Reports: No Symptoms Cardiovascular: Reports: No Symptoms Gastrointestinal: Reports: No Symptoms Genitourinary: Reports: No Symptoms Musculoskeletal: Reports: No Symptoms Skin: Reports: No Symptoms Neurological: Reports: No Symptoms Psychiatric: Reports: No Symptoms - Patient Data Vitals - Most Recent: Last Vital Signs Temp 97.6 F 12/18/18 07:56 Pulse 69 12/18/18 07:56 Resp 17 12/18/18 07:56 BP 145/55 H 12/18/18 07:56 Pulse Ox 100 12/18/18 07:56 Weight - Most Recent: 199 lb 8 oz I&O - Last 24 Hours: Intake & Output 12/17/18 12/18/18 12/18/18 22:59 06:59 14:59 Intake Total 200 300 360 Output Total 1275 650 Balance -1075 -350 360 Lab Results Last 24 Hours: Laboratory Results - last 24 hr 12/17/18 12/17/18 12/18/18 Range/Units 16:49 20:29 07:20 WBC 5.5 (4.0-10.2) K/uL RBC 3.88 (3.77-5.09) M/uL Hgb 11.3 L (11.7-15.5) g/dL Hct 34.0 (34.0-46.0) % MCV 87.6 (84.0-98.0) fL MCH 29.1 (28.2-33.3) pg MCHC 33.2 (31.7-36.0) g/dL RDW 15.1 H (11.2-14.1) % Plt Count 122 L (150-350) K/uL Neut % (Auto) 52.6 (45.0-80.0) % Lymph % (Auto) 34.2 (10.0-50.0) % [place] % (Auto) 10.1 (2.0-14.0) % Eos % (Auto) 2.9 (0.0-5.0) % Baso % (Auto) 0.2 (0.0-2.0) % Neut # (Auto) 2.91 (1.40-7.00) K/uL Lymph # (Auto) 1.89 (0.50-3.50) K/uL [place] # (Auto) 0.56 (0.00-1.00) K/uL Eos # (Auto) 0.16 (0.00-0.50) K/uL Baso # (Auto) 0.01 (0.00-0.20) K/uL Sodium (136-145) mmol/L Potassium (3.5-5.1) mmol/L Chloride (98-107) mmol/L Carbon Dioxide (21.0-32.0) mmol/L BUN (7-18) mg/dL Creatinine (0.51-1.17) mg/dL Est Cr Clr Drug Dosing mL/min Estimated GFR (MDRD) mL/min Glucose (74-106) mg/dL POC Glucose 237 H 290 H* (65-110) mg/dl Calcium (8.5-10.1) mg/dL Total Bilirubin (0.2-1.0) mg/dL AST (15-37) U/L ALT (12-78) U/L Alkaline Phosphatase (46-116) IU/L Creatine Kinase (26-308) U/L C-Reactive Protein (<=0.9) mg/dL Total Protein (6.4-8.2) g/dL Albumin (3.4-5.0) g/dL 12/18/18 12/18/18 12/18/18 Range/Units 07:20 07:28 11:31 WBC (4.0-10.2) K/uL RBC (3.77-5.09) M/uL Hgb (11.7-15.5) g/dL Hct (34.0-46.0) % MCV (84.0-98.0) fL MCH (28.2-33.3) pg MCHC (31.7-36.0) g/dL RDW (11.2-14.1) % Plt Count (150-350) K/uL Neut % (Auto) (45.0-80.0) % Lymph % (Auto) (10.0-50.0) % [place] % (Auto) (2.0-14.0) % Eos % (Auto) (0.0-5.0) % Baso % (Auto) (0.0-2.0) % Neut # (Auto) (1.40-7.00) K/uL Lymph # (Auto) (0.50-3.50) K/uL [place]yman # (Auto) (0.00-1.00) K/uL Eos # (Auto) (0.00-0.50) K/uL Baso # (Auto) (0.00-0.20) K/uL Sodium 140 (136-145) mmol/L Potassium 4.3 (3.5-5.1) mmol/L Chloride 104 (98-107) mmol/L Carbon Dioxide 27.8 (21.0-32.0) mmol/L BUN 18 (7-18) mg/dL Creatinine 1.25 H (0.51-1.17) mg/dL Est Cr Clr Drug Dosing 36.15 mL/min Estimated GFR (MDRD) 44 mL/min Glucose 138 H (74-106) mg/dL POC Glucose 130 H 218 H (65-110) mg/dl Calcium 8.9 (8.5-10.1) mg/dL Total Bilirubin 0.3 (0.2-1.0) mg/dL AST 38 H (15-37) U/L ALT 35 (12-78) U/L Alkaline Phosphatase 92 (46-116) IU/L Creatine Kinase 320 H (26-308) U/L C-Reactive Protein 6.5 H (<=0.9) mg/dL Total Protein 7.0 (6.4-8.2) g/dL Albumin 3.1 L (3.4-5.0) g/dL [place] Results Last 24 Hours: Microbiology 12/16/18 08:50 Aerobic Blood Culture - Preliminary Blood - Venous - Lab Draw NO GROWTH AFTER 2 DAYS Anaerobic Blood Culture - Preliminary NO GROWTH AFTER 2 DAYS 12/16/18 08:35 Aerobic Blood Culture - Preliminary Blood - Venous NO GROWTH AFTER 2 DAYS Anaerobic Blood Culture - Preliminary NO GROWTH AFTER 2 DAYS Med Orders - Current: Current Medications Acetaminophen (Tylenol) 650 mg PO Q4H PRN PRN Reason: Pain (Mild 1-3)/fever Last Admin: 12/18/18 08:08 Dose: 650 mg Albuterol (Ventolin Hfa) 0 gm INH Q4H PRN PRN Reason: shortness of breath Ciprofloxacin/Dextrose 400 mg/ (Premix) 200 mls @ 200 mls/hr IV Q12HR [facility] Last Admin: 12/18/18 08:06 Dose: 200 mls/hr Insulin Glargine (Lantus) 30 unit SUBCUT DAILY [facility] Last Admin: 12/18/18 08:09 Dose: 30 unit Ondansetron HCl (Zofran Odt) 4 mg PO Q6H PRN PRN Reason: Nausea/Vomiting Sodium Chloride (Saline Flush) 10 ml FLUSH ASDIRECTED PRN PRN Reason: Keep Vein Open Last Admin: 12/18/18 08:10 Dose: 10 ml Sodium Chloride (Saline Flush) 10 ml FLUSH Q12HR [facility] Last Admin: 12/18/18 08:09 Dose: 10 ml Valproic Acid (Depakene) 250 mg PO BID@08,16 [facility] Last Admin: 12/18/18 08:06 Dose: 250 mg Valproic Acid (Depakene) 500 mg PO BEDTIME [facility] Last Admin: 12/17/18 19:30 Dose: 500 mg Discontinued Medications Acetaminophen (Tylenol) 650 mg PO NOW ONE Stop: 12/16/18 08:20 Last Admin: 12/16/18 09:44 Dose: 650 mg Aspirin (Aspirin) 81 mg PO DAILY [facility] Sodium Chloride (Normal Saline) 1,000 mls @ 1,000 mls/hr IV .BOLUS ONE Stop: 12/16/18 09:17 Last Admin: 12/16/18 08:46 Dose: 1,000 mls/hr Ciprofloxacin/Dextrose 400 mg/ (Premix) 200 mls @ 200 mls/hr IV ONETIME ONE Stop: 12/16/18 10:30 Last Admin: 12/16/18 09:44 Dose: 200 mls/hr Dextrose/Sodium Chloride (Dextrose 5%-1/2 Ns) 1,000 mls @ 125 mls/hr IV ASDIRECTED [facility] Last Admin: 12/16/18 23:19 Dose: 125 mls/hr Sodium Chloride (Normal Saline) 1,000 mls @ 100 mls/hr IV ASDIRECTED [facility] Last Admin: 12/17/18 11:01 Dose: 100 mls/hr Metformin HCl (Glucophage) 1,000 mg PO BIDMEALS [facility] Last Admin: 12/16/18 11:07 Dose: 1,000 mg Simvastatin (Zocor) 40 mg PO BEDTIME [facility] - Exam General: Alert, Cooperative, No Acute Distress HEENT: Mucous Membr. Moist/[place] Neck: Trachea Midline, No JVD Lungs: Clear to Auscultation, Normal Respiratory Effort Cardiovascular: Regular Rate, Regular Rhythm GI/Abdominal Exam: Soft, Non-Tender, No Distention (Female) Exam: Deferred Back Exam: Normal Inspection Extremities: Normal Inspection, Non-Tender Skin: Warm, Dry, Intact Neurological: No New Focal Deficit Psy/Mental Status: Alert, Normal Affect, Normal Mood - Problem List & Annotations (1) Infection due to ESBL-producing Escherichia coli SNOMED Code(s): 590807001 Code(s): A49.8 - OTHER BACTERIAL INFECTIONS OF UNSPECIFIED SITE; Z16.12 - EXTENDED SPECTRUM BETA LACTAMASE (ESBL) RESISTANCE Status: Acute Priority: High Current Visit: Yes (2) E. coli urinary tract infection SNOMED Code(s): 772811279 Code(s): N39.0 - URINARY TRACT INFECTION, SITE NOT SPECIFIED; B96.20 - UNSP ESCHERICHIA COLI THE CAUSE OF DISEASES CLASSD ELSWHR Status: Acute Priority: High Current Visit: Yes (3) Sepsis SNOMED Code(s): 66843723 Code(s): A41.9 - SEPSIS, UNSPECIFIED ORGANISM Status: Acute Current Visit : No Qualifiers: Sepsis type: sepsis due to unspecified organism Qualified Code(s): A41.9 - Sepsis, unspecified organism (4) Asthma SNOMED Code(s): 317877544 Code(s): J45.909 - UNSPECIFIED ASTHMA, UNCOMPLICATED Status: Chronic Priority: Low Current Visit: No Qualifiers: Asthma severity: unspecified severity Asthma complication type: uncomplicated Annotation/Comment:: Currently stable per patient (5) Diabetes SNOMED Code(s): 94633476 Code(s): E11.9 - TYPE 2 DIABETES MELLITUS WITHOUT COMPLICATIONS Status: Chronic Priority: Medium Current Visit: No Qualifiers: Diabetes mellitus type: type 2 Diabetes mellitus 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 Patient is not monitoring own blood glucose levels at home and is making poor dietary choices. A1C is over 10. To follow up closely with primary provider. (6) Epilepsy SNOMED Code(s): 29936410 Code(s): G40.909 - EPILEPSY, UNSP, NOT INTRACTABLE, WITHOUT STATUS EPILEPTICUS Status: Chronic Priority: Low Current Visit: No Qualifiers: Epilepsy type: unspecified Intractability: not intractable Status epilepticus: without status epilepticus Qualified Code(s): G40.909 - Epilepsy , unspecified, not intractable, without status epilepticus Annotation/Comment:: Has been stable per patient. (7) Hyperlipidemia SNOMED Code(s): 81166494 Code(s): E78.5 - HYPERLIPIDEMIA, UNSPECIFIED Status: Chronic Priority: Low Current Visit: No Qualifiers: Hyperlipidemia type: unspecified Qualified Code(s): E78.5 - Hyperlipidemia , unspecified Annotation/Comment:: Currently on a statin. To follow up with primary clinic for continued care. - Problem List Review Problem List Initiated/Reviewed/Updated: Yes - My Orders Last 24 Hours: My Active Orders 12/18/18 08:00 Sodium Chloride 0.9% [Saline Flush] 10 ml FLUSH Q12HR 12/19/18 05:11 CBC WITH AUTO DIFF [HEME] DAILY CMP [COMPREHENSIVE METABOLIC PN,CMP] [CHEM] DAILY CREATINE KINASE,CK [CHEM] Routine CRP [C-REACTIVE PROTEIN] [CHEM] DAILY - Plan Plan:: 12/17/18 Gilma White MD She is feeling better today. Urine C&S E-coli ESBL. Cipro appears to be more effective then the rocephin, and macrodantin. Better oral intake so will discontinue the maintenance IV fluids. Metformin stopped due to elevated creatinine. THis was discussed with her. Continue inpatient status with IV antibiotics. 12/18/18 Gilma White MD Continues slow improvement. Continue IV cipro. Statin stopped due to elevated CK.
[2018-12-19] MEDS: Valproic Acid 250 MG Cap PO SCH ×3 (07:09→19:21)
[2018-12-19] MEDS: Ciprofloxacin in D5W 400 MG in Premix Bag 1 BAG IV SCH ×4 (07:09→19:21)
[2018-12-19] MEDS: Insulin Glarg,Human.Rec.Analog 100 UNIT/ML ML SUBCUT SCH (07:14)
[2018-12-19] MEDS: Sodium Chloride 0.9% 10 ML Syringe FLUSH SCH ×2 (07:15→19:21)
[2018-12-19] MEDS: Sodium Chloride 0.9% 10 ML Syringe FLUSH PRN (08:15)
--- NOTE | 2018-12-19 16:12 | PCM.PN ---
- General Info Date of Service: 12/19/18 Functional Status: Reports: Other (pain right shoulder) - Review of Systems General: Reports: No Symptoms HEENT: Reports: No Symptoms Pulmonary: Reports: No Symptoms Cardiovascular: Reports: No Symptoms Gastrointestinal: Reports: No Symptoms Genitourinary: Reports: No Symptoms Musculoskeletal: Reports: Shoulder Pain (right) Skin: Reports: No Symptoms Neurological: Reports: No Symptoms Psychiatric: Reports: No Symptoms - Patient Data Vitals - Most Recent: Last Vital Signs Temp 96.2 F 12/19/18 11:45 Pulse 68 12/19/18 11:45 Resp 16 12/19/18 11:45 BP 144/67 H 12/19/18 11:45 Pulse Ox 96 12/19/18 11:45 Weight - Most Recent: 202 lb 4.8 oz I&O - Last 24 Hours: Intake & Output 12/19/18 12/19/18 12/19/18 06:59 14:59 22:59 Intake Total 300 870 Output Total 550 Balance -250 870 Lab Results Last 24 Hours: Laboratory Results - last 24 hr 12/18/18 12/18/18 12/19/18 Range/Units 17:02 20:19 06:52 WBC 5.2 (4.0-10.2) K/uL RBC 3.68 L (3.77-5.09) M/uL Hgb 10.7 L (11.7-15.5) g/dL Hct 32.5 L (34.0-46.0) % MCV 88.3 (84.0-98.0) fL MCH 29.1 (28.2-33.3) pg MCHC 32.9 (31.7-36.0) g/dL RDW 15.1 H (11.2-14.1) % Plt Count 125 L (150-350) K/uL Neut % (Auto) 41.6 L (45.0-80.0) % Lymph % (Auto) 44.3 (10.0-50.0) % [place] % (Auto) 10.2 (2.0-14.0) % Eos % (Auto) 3.7 (0.0-5.0) % Baso % (Auto) 0.2 (0.0-2.0) % Neut # (Auto) 2.16 (1.40-7.00) K/uL Lymph # (Auto) 2.30 (0.50-3.50) K/uL [place] # (Auto) 0.53 (0.00-1.00) K/uL Eos # (Auto) 0.19 (0.00-0.50) K/uL Baso # (Auto) 0.01 (0.00-0.20) K/uL Sodium (136-145) mmol/L Potassium (3.5-5.1) mmol/L Chloride (98-107) mmol/L Carbon Dioxide (21.0-32.0) mmol/L BUN (7-18) mg/dL Creatinine (0.51-1.17) mg/dL Est Cr Clr Drug Dosing mL/min Estimated GFR (MDRD) mL/min Glucose (74-106) mg/dL POC Glucose 162 H 268 H* (65-110) mg/dl Calcium (8.5-10.1) mg/dL Total Bilirubin (0.2-1.0) mg/dL AST (15-37) U/L ALT (12-78) U/L Alkaline Phosphatase (46-116) IU/L Creatine Kinase (26-308) U/L C-Reactive Protein (<=0.9) mg/dL Total Protein (6.4-8.2) g/dL Albumin (3.4-5.0) g/dL 12/19/18 12/19/18 12/19/18 Range/Units 06:52 06:56 11:32 WBC (4.0-10.2) K/uL RBC (3.77-5.09) M/uL Hgb (11.7-15.5) g/dL Hct (34.0-46.0) % MCV (84.0-98.0) fL MCH (28.2-33.3) pg MCHC (31.7-36.0) g/dL RDW (11.2-14.1) % Plt Count (150-350) K/uL Neut % (Auto) (45.0-80.0) % Lymph % (Auto) (10.0-50.0) % [place] % (Auto) (2.0-14.0) % Eos % (Auto) (0.0-5.0) % Baso % (Auto) (0.0-2.0) % Neut # (Auto) (1.40-7.00) K/uL Lymph # (Auto) (0.50-3.50) K/uL [place] # (Auto) (0.00-1.00) K/uL Eos # (Auto) (0.00-0.50) K/uL Baso # (Auto) (0.00-0.20) K/uL Sodium 141 (136-145) mmol/L Potassium 4.5 (3.5-5.1) mmol/L Chloride 105 (98-107) mmol/L Carbon Dioxide 27.9 (21.0-32.0) mmol/L BUN 17 (7-18) mg/dL Creatinine 1.17 (0.51-1.17) mg/dL Est Cr Clr Drug Dosing 38.63 mL/min Estimated GFR (MDRD) 47 mL/min Glucose 149 H (74-106) mg/dL POC Glucose 169 H 167 H (65-110) mg/dl Calcium 9.2 (8.5-10.1) mg/dL Total Bilirubin 0.3 (0.2-1.0) mg/dL AST 35 (15-37) U/L ALT 36 (12-78) U/L Alkaline Phosphatase 97 (46-116) IU/L Creatine Kinase 147 (26-308) U/L C-Reactive Protein 3.1 H (<=0.9) mg/dL Total Protein 6.8 (6.4-8.2) g/dL Albumin 3.0 L (3.4-5.0) g/dL [place] Results Last 24 Hours: Microbiology 12/16/18 08:50 Aerobic Blood Culture - Preliminary Blood - Venous - Lab Draw NO GROWTH AFTER 3 DAYS Anaerobic Blood Culture - Preliminary NO GROWTH AFTER 3 DAYS 12/16/18 08:35 Aerobic Blood Culture - Preliminary Blood - Venous NO GROWTH AFTER 3 DAYS Anaerobic Blood Culture - Preliminary NO GROWTH AFTER 3 DAYS 12/16/18 14:00 Urine Culture - Final Urine, Clean Catch NO GROWTH AFTER 2 DAYS Med Orders - Current: Current Medications Acetaminophen (Tylenol) 650 mg PO Q4H PRN PRN Reason: Pain (Mild 1-3)/fever Last Admin: 12/18/18 08:08 Dose: 650 mg Albuterol (Ventolin Hfa) 0 gm INH Q4H PRN PRN Reason: shortness of breath Ciprofloxacin/Dextrose 400 mg/ (Premix) 200 mls @ 200 mls/hr IV Q12HR [facility] Last Admin: 12/19/18 07:09 Dose: 200 mls/hr Insulin Glargine (Lantus) 30 unit SUBCUT DAILY [facility] Last Admin: 12/19/18 07:14 Dose: 30 unit Ondansetron HCl (Zofran Odt) 4 mg PO Q6H PRN PRN Reason: Nausea/Vomiting Sodium Chloride (Saline Flush) 10 ml FLUSH ASDIRECTED PRN PRN Reason: Keep Vein Open Last Admin: 12/19/18 08:15 Dose: 10 ml Sodium Chloride (Saline Flush) 10 ml FLUSH Q12HR [facility] Last Admin: 12/19/18 07:15 Dose: 10 ml Valproic Acid (Depakene) 250 mg PO BID@08,16 [facility] Last Admin: 12/19/18 07:09 Dose: 250 mg Valproic Acid (Depakene) 500 mg PO BEDTIME [facility] Last Admin: 12/18/18 19:05 Dose: 500 mg Discontinued Medications Acetaminophen (Tylenol) 650 mg PO NOW ONE Stop: 12/16/18 08:20 Last Admin: 12/16/18 09:44 Dose: 650 mg Aspirin (Aspirin) 81 mg PO DAILY [facility] Sodium Chloride (Normal Saline) 1,000 mls @ 1,000 mls/hr IV .BOLUS ONE Stop: 12/16/18 09:17 Last Admin: 12/16/18 08:46 Dose: 1,000 mls/hr Ciprofloxacin/Dextrose 400 mg/ (Premix) 200 mls @ 200 mls/hr IV ONETIME ONE Stop: 12/16/18 10:30 Last Admin: 12/16/18 09:44 Dose: 200 mls/hr Dextrose/Sodium Chloride (Dextrose 5%-1/2 Ns) 1,000 mls @ 125 mls/hr IV ASDIRECTED [facility] Last Admin: 12/16/18 23:19 Dose: 125 mls/hr Sodium Chloride (Normal Saline) 1,000 mls @ 100 mls/hr IV ASDIRECTED [facility] Last Admin: 12/17/18 11:01 Dose: 100 mls/hr Metformin HCl (Glucophage) 1,000 mg PO BIDMEALS [facility] Last Admin: 12/16/18 11:07 Dose: 1,000 mg Simvastatin (Zocor) 40 mg PO BEDTIME [facility] - Exam General: Alert, Cooperative HEENT: Mucous Membr. Moist/[place] Neck: Trachea Midline, No JVD Lungs: Clear to Auscultation, Normal Respiratory Effort Cardiovascular: Regular Rate, Regular Rhythm GI/Abdominal Exam: Soft, Non-Tender, No Distention (Female) Exam: Deferred Back Exam: Normal Inspection Extremities: Normal Inspection, Non-Tender, No Pedal Edema Skin: Warm, Dry, Intact Neurological: No New Focal Deficit Psy/Mental Status: Alert, Normal Affect, Normal Mood - Problem List & Annotations (1) Infection due to ESBL-producing Escherichia coli SNOMED Code(s): 190079720 Code(s): A49.8 - OTHER BACTERIAL INFECTIONS OF UNSPECIFIED SITE; Z16.12 - EXTENDED SPECTRUM BETA LACTAMASE (ESBL) RESISTANCE Status: Acute Priority: High Current Visit: Yes (2) E. coli urinary tract infection SNOMED Code(s): 458298784 Code(s): N39.0 - URINARY TRACT INFECTION, SITE NOT SPECIFIED; B96.20 - UNSP ESCHERICHIA COLI THE CAUSE OF DISEASES CLASSD ELSWHR Status: Acute Priority: High Current Visit: Yes (3) Sepsis SNOMED Code(s): 75446027 Code(s): A41.9 - SEPSIS, UNSPECIFIED ORGANISM Status: Acute Current Visit : No Qualifiers: Sepsis type: sepsis due to unspecified organism Qualified Code(s): A41.9 - Sepsis, unspecified organism (4) Asthma SNOMED Code(s): 374483405 Code(s): J45.909 - UNSPECIFIED ASTHMA, UNCOMPLICATED Status: Chronic Priority: Low Current Visit: No Qualifiers: Asthma severity: unspecified severity Asthma complication type: uncomplicated Annotation/Comment:: Currently stable per patient (5) Diabetes SNOMED Code(s): 25097562 Code(s): E11.9 - TYPE 2 DIABETES MELLITUS WITHOUT COMPLICATIONS Status: Chronic Priority: Medium Current Visit: No Qualifiers: Diabetes mellitus type: type 2 Diabetes mellitus 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 Patient is not monitoring own blood glucose levels at home and is making poor dietary choices. A1C is over 10. To follow up closely with primary provider. (6) Epilepsy SNOMED Code(s): 45420024 Code(s): G40.909 - EPILEPSY, UNSP, NOT INTRACTABLE, WITHOUT STATUS EPILEPTICUS Status: Chronic Priority: Low Current Visit: No Qualifiers: Epilepsy type: unspecified Intractability: not intractable Status epilepticus: without status epilepticus Qualified Code(s): G40.909 - Epilepsy , unspecified, not intractable, without status epilepticus Annotation/Comment:: Has been stable per patient. (7) Hyperlipidemia SNOMED Code(s): 56956012 Code(s): E78.5 - HYPERLIPIDEMIA, UNSPECIFIED Status: Chronic Priority: Low Current Visit: No Qualifiers: Hyperlipidemia type: unspecified Qualified Code(s): E78.5 - Hyperlipidemia , unspecified Annotation/Comment:: Currently on a statin. To follow up with primary clinic for continued care. - Problem List Review Problem List Initiated/Reviewed/Updated: Yes - Plan Plan:: 12/17/18 Gilma White MD She is feeling better today. Urine C&S E-coli ESBL. Cipro appears to be more effective then the rocephin, and macrodantin. Better oral intake so will discontinue the maintenance IV fluids. Metformin stopped due to elevated creatinine. THis was discussed with her. Continue inpatient status with IV antibiotics. 12/18/18 Gilma White MD Continues slow improvement. Continue IV cipro. Statin stopped due to elevated CK. 12/19/18 Gilma White MD She says she is not ready to go home. Right shoulder pain and neck pain maybe from bed and pillow. Urine C&S now showing no growth so cipro has worked. Continue IV cipro and discharge plans discussed with her.
[2018-12-20 07:13] VITALS: BP 144/73
[2018-12-20] MEDS: Ciprofloxacin in D5W 400 MG in Premix Bag 1 BAG IV SCH ×2 (07:13)
[2018-12-20] MEDS: Valproic Acid 250 MG Cap PO SCH (07:15)
[2018-12-20] MEDS: Insulin Glarg,Human.Rec.Analog 100 UNIT/ML ML SUBCUT SCH (07:15)
[2018-12-20] MEDS: Sodium Chloride 0.9% 10 ML Syringe FLUSH SCH (07:15)
--- NOTE | 2018-12-20 09:45 | PCM.PN ---
- General Info Date of Service: 12/20/18 Admission Dx/Problem (Free Text): UTI, E. coli Functional Status: Reports: Pain Controlled, Tolerating Diet, Ambulating, Urinating - Review of Systems General: Reports: No Symptoms HEENT: Reports: No Symptoms Pulmonary: Reports: No Symptoms Cardiovascular: Reports: No Symptoms Gastrointestinal: Reports: No Symptoms Genitourinary: Reports: No Symptoms Musculoskeletal: Reports: No Symptoms Skin: Reports: No Symptoms Neurological: Reports: No Symptoms Psychiatric: Reports: No Symptoms - Patient Data Vitals - Most Recent: Last Vital Signs Temp 97.7 F 12/20/18 07:12 Pulse 59 L 12/20/18 07:12 Resp 18 12/20/18 07:12 BP 144/73 H 12/20/18 07:12 Pulse Ox 99 12/20/18 07:12 Weight - Most Recent: 202 lb 4.8 oz I&O - Last 24 Hours: Intake & Output 12/19/18 12/20/18 12/20/18 22:59 06:59 14:59 Intake Total 200 200 Output Total 1200 900 Balance -1000 -900 200 Lab Results Last 24 Hours: Laboratory Results - last 24 hr 12/19/18 12/19/18 12/19/18 Range/Units 11:32 16:53 20:47 WBC (4.0-10.2) K/uL RBC (3.77-5.09) M/uL Hgb (11.7-15.5) g/dL Hct (34.0-46.0) % MCV (84.0-98.0) fL MCH (28.2-33.3) pg MCHC (31.7-36.0) g/dL RDW (11.2-14.1) % Plt Count (150-350) K/uL Neut % (Auto) (45.0-80.0) % Lymph % (Auto) (10.0-50.0) % [place] % (Auto) (2.0-14.0) % Eos % (Auto) (0.0-5.0) % Baso % (Auto) (0.0-2.0) % Neut # (Auto) (1.40-7.00) K/uL Lymph # (Auto) (0.50-3.50) K/uL [place] # (Auto) (0.00-1.00) K/uL Eos # (Auto) (0.00-0.50) K/uL Baso # (Auto) (0.00-0.20) K/uL Sodium (136-145) mmol/L Potassium (3.5-5.1) mmol/L Chloride (98-107) mmol/L Carbon Dioxide (21.0-32.0) mmol/L BUN (7-18) mg/dL Creatinine (0.51-1.17) mg/dL Est Cr Clr Drug Dosing mL/min Estimated GFR (MDRD) mL/min Glucose (74-106) mg/dL POC Glucose 167 H 139 H 211 H (65-110) mg/dl Calcium (8.5-10.1) mg/dL Creatine Kinase (26-308) U/L C-Reactive Protein (<=0.9) mg/dL 12/20/18 12/20/18 12/20/18 Range/Units 06:55 06:55 07:10 WBC 5.7 (4.0-10.2) K/uL RBC 4.03 (3.77-5.09) M/uL Hgb 11.4 L (11.7-15.5) g/dL Hct 35.4 (34.0-46.0) % MCV 87.8 (84.0-98.0) fL MCH 28.3 (28.2-33.3) pg MCHC 32.2 (31.7-36.0) g/dL RDW 15.2 H (11.2-14.1) % Plt Count 156 (150-350) K/uL Neut % (Auto) 43.0 L (45.0-80.0) % Lymph % (Auto) 42.9 (10.0-50.0) % [place] % (Auto) 10.4 (2.0-14.0) % Eos % (Auto) 3.5 (0.0-5.0) % Baso % (Auto) 0.2 (0.0-2.0) % Neut # (Auto) 2.45 (1.40-7.00) K/uL Lymph # (Auto) 2.44 (0.50-3.50) K/uL [place] # (Auto) 0.59 (0.00-1.00) K/uL Eos # (Auto) 0.20 (0.00-0.50) K/uL Baso # (Auto) 0.01 (0.00-0.20) K/uL Sodium 141 (136-145) mmol/L Potassium 4.5 (3.5-5.1) mmol/L Chloride 102 (98-107) mmol/L Carbon Dioxide 26.8 (21.0-32.0) mmol/L BUN 19 H (7-18) mg/dL Creatinine 1.19 H (0.51-1.17) mg/dL Est Cr Clr Drug Dosing 37.98 mL/min Estimated GFR (MDRD) 46 mL/min Glucose 150 H (74-106) mg/dL POC Glucose 152 H (65-110) mg/dl Calcium 9.7 (8.5-10.1) mg/dL Creatine Kinase 80 (26-308) U/L C-Reactive Protein 1.9 H (<=0.9) mg/dL [place] Results Last 24 Hours: Microbiology 12/16/18 08:50 Aerobic Blood Culture - Preliminary Blood - Venous - Lab Draw NO GROWTH AFTER 4 DAYS Anaerobic Blood Culture - Preliminary NO GROWTH AFTER 4 DAYS 12/16/18 08:35 Aerobic Blood Culture - Preliminary Blood - Venous NO GROWTH AFTER 4 DAYS Anaerobic Blood Culture - Preliminary NO GROWTH AFTER 4 DAYS 12/16/18 14:00 Urine Culture - Final Urine, Clean Catch NO GROWTH AFTER 2 DAYS Med Orders - Current: Current Medications Acetaminophen (Tylenol) 650 mg PO Q4H PRN PRN Reason: Pain (Mild 1-3)/fever Last Admin: 12/18/18 08:08 Dose: 650 mg Albuterol (Ventolin Hfa) 0 gm INH Q4H PRN PRN Reason: shortness of breath Ciprofloxacin/Dextrose 400 mg/ (Premix) 200 mls @ 200 mls/hr IV Q12HR [facility] Last Admin: 12/20/18 07:13 Dose: 200 mls/hr Insulin Glargine (Lantus) 30 unit SUBCUT DAILY [facility] Last Admin: 12/20/18 07:15 Dose: 30 unit Ondansetron HCl (Zofran Odt) 4 mg PO Q6H PRN PRN Reason: Nausea/Vomiting Sodium Chloride (Saline Flush) 10 ml FLUSH ASDIRECTED PRN PRN Reason: Keep Vein Open Last Admin: 12/19/18 08:15 Dose: 10 ml Sodium Chloride (Saline Flush) 10 ml FLUSH Q12HR [facility] Last Admin: 12/20/18 07:15 Dose: 10 ml Valproic Acid (Depakene) 250 mg PO BID@08,16 [facility] Last Admin: 12/20/18 07:15 Dose: 250 mg Valproic Acid (Depakene) 500 mg PO BEDTIME [facility] Last Admin: 12/19/18 19:21 Dose: 500 mg Discontinued Medications Acetaminophen (Tylenol) 650 mg PO NOW ONE Stop: 12/16/18 08:20 Last Admin: 12/16/18 09:44 Dose: 650 mg Aspirin (Aspirin) 81 mg PO DAILY [facility] Sodium Chloride (Normal Saline) 1,000 mls @ 1,000 mls/hr IV .BOLUS ONE Stop: 12/16/18 09:17 Last Admin: 12/16/18 08:46 Dose: 1,000 mls/hr Ciprofloxacin/Dextrose 400 mg/ (Premix) 200 mls @ 200 mls/hr IV ONETIME ONE Stop: 12/16/18 10:30 Last Admin: 12/16/18 09:44 Dose: 200 mls/hr Dextrose/Sodium Chloride (Dextrose 5%-1/2 Ns) 1,000 mls @ 125 mls/hr IV ASDIRECTED [facility] Last Admin: 12/16/18 23:19 Dose: 125 mls/hr Sodium Chloride (Normal Saline) 1,000 mls @ 100 mls/hr IV ASDIRECTED [facility] Last Admin: 12/17/18 11:01 Dose: 100 mls/hr Metformin HCl (Glucophage) 1,000 mg PO BIDMEALS [facility] Last Admin: 12/16/18 11:07 Dose: 1,000 mg Simvastatin (Zocor) 40 mg PO BEDTIME [facility] - Exam General: Alert, Oriented HEENT: Pupils Equal, Pupils Reactive, EOMI, Mucous Membr. Moist/[place] Neck: Supple, Trachea Midline, No JVD Lungs: Clear to Auscultation, Normal Respiratory Effort Cardiovascular: Regular Rate, Regular Rhythm GI/Abdominal Exam: Normal Bowel Sounds, Soft, Non-Tender (Female) Exam: Deferred Back Exam: Normal Inspection Extremities: Normal Inspection, No Pedal Edema Skin: Warm, Dry, Intact Neurological: No New Focal Deficit Psy/Mental Status: Alert, Normal Affect, Normal Mood - Problem List Review Problem List Initiated/Reviewed/Updated: Yes - Plan Plan:: 12/17/18 Gilma White MD She is feeling better today. Urine C&S E-coli ESBL. Cipro appears to be more effective then the rocephin, and macrodantin. Better oral intake so will discontinue the maintenance IV fluids. Metformin stopped due to elevated creatinine. THis was discussed with her. Continue inpatient status with IV antibiotics. 12/18/18 Gilma White MD Continues slow improvement. Continue IV cipro. Statin stopped due to elevated CK. 12/19/18 Gilma White MD She says she is not ready to go home. Right shoulder pain and neck pain maybe from bed and pillow. Urine C&S now showing no growth so cipro has worked. Continue IV cipro and discharge plans discussed with her. 12-20-18 Haseeb Feliz PA-C Denies any complaints to me, says is really looking forward to going home. Friend Ella has already picked up the po Cipro prescription for her, and will be picking her up to take her home. Will continue Home Health with Yenny Galarza RN. I will see her in the clinic before the end of the week for exam and repeat labs, she is in agreement with this.
--- NOTE | 2018-12-20 09:53 | PCM.DCSUM1 ---
Discharge Summary - Hospital Course Brief History: Admitted for UTI. Culture grew out E. coli, sensitive to Ciprofloxacin. Treatment included IV Cipro. Diagnosis: Stroke: No - Discharge Data Discharge Date: 12/20/18 Discharge Disposition: Home, Self-Care 01 Condition: Good - Patient Summary/Data Consults: Consultations 12/16/18 09:50 Consult to Case Management/Supervisory Clerk [CONS] Routine Hospital Course: Patient tolerated the IV Cipro, and condition improved. Labs were monitored and po meds adjusted accordingly. Hgb noted to trend downwards but back up a little bit today, and will monitor on an outpatient basis. Diabetes treated now only with insulin. Will monitor renal function in the clinic also. - Patient Instructions Diet: Drink 8-10+ Glasses/Day, Diabetic Diet Activity: As Tolerated Driving: Do Not Drive Showering/Bathing: May Shower Notify Provider of: Fever, Nausea and/or Vomiting Other/Special Instructions: Follow up with Shanel Feliz PA-C at [facility] or Saturday of this week. Call [phone] to schedule appointment. - Discharge Plan *PRESCRIPTION DRUG MONITORING PROGRAM REVIEWED*: Not Applicable *COPY OF PRESCRIPTION DRUG MONITORING REPORT IN PATIENT GREY: Not Applicable Prescriptions/Med Rec: Ciprofloxacin HCl [Cipro] 500 mg PO BID #15 tablet Home Medications: Home Meds Albuterol [Proventil HFA] 2 puff INH Q4H PRN 07/20/16 [History] Aspirin 81 mg PO DAILY 07/20/16 [History] Insulin Glargine,Hum.Rec.Anlog [Shawn Isaacs] 38 units SUBCUT DAILY 12/13/18 [History] Valproic Acid 500 mg PO BEDTIME 12/13/18 [History] Valproic Acid [Depakene] 250 mg PO BID@08,16 12/13/18 [History] Ciprofloxacin HCl [Cipro] 500 mg PO BID #15 tablet 12/19/18 [Rx] Oxygen Therapy Mode: Room Air Patient Handouts: Urinary Tract Infection, Adult, [id number], Ciprofloxacin injection Forms: ED Department Discharge Referrals: Shanel Feliz PA [Primary Care Provider] - - Discharge Summary/Plan Comment DC Time >30 min.: Yes Discharge Summary/Plan Comment: Discharging to home today on po Cipro. Reviewed current medications with patient, and will follow up before the end of this week with her in the clinic. She also has SARAHI Martinez RN in the home setting. - Patient Data Vitals - Most Recent: Last Vital Signs Temp 97.7 F 12/20/18 07:12 Pulse 59 L 12/20/18 07:12 Resp 18 12/20/18 07:12 BP 144/73 H 12/20/18 07:12 Pulse Ox 99 12/20/18 07:12 Weight - Most Recent: 202 lb 4.8 oz I&O - Last 24 hours: Intake & Output 12/19/18 12/20/18 12/20/18 22:59 06:59 14:59 Intake Total 200 200 Output Total 1200 900 Balance -1000 -900 200 Lab Results - Last 24 hrs: Laboratory Results - last 24 hr 12/19/18 12/19/18 12/19/18 Range/Units 11:32 16:53 20:47 WBC (4.0-10.2) K/uL RBC (3.77-5.09) M/uL Hgb (11.7-15.5) g/dL Hct (34.0-46.0) % MCV (84.0-98.0) fL MCH (28.2-33.3) pg MCHC (31.7-36.0) g/dL RDW (11.2-14.1) % Plt Count (150-350) K/uL Neut % (Auto) (45.0-80.0) % Lymph % (Auto) (10.0-50.0) % [place] % (Auto) (2.0-14.0) % Eos % (Auto) (0.0-5.0) % Baso % (Auto) (0.0-2.0) % Neut # (Auto) (1.40-7.00) K/uL Lymph # (Auto) (0.50-3.50) K/uL [place] # (Auto) (0.00-1.00) K/uL Eos # (Auto) (0.00-0.50) K/uL Baso # (Auto) (0.00-0.20) K/uL Sodium (136-145) mmol/L Potassium (3.5-5.1) mmol/L Chloride (98-107) mmol/L Carbon Dioxide (21.0-32.0) mmol/L BUN (7-18) mg/dL Creatinine (0.51-1.17) mg/dL Est Cr Clr Drug Dosing mL/min Estimated GFR (MDRD) mL/min Glucose (74-106) mg/dL POC Glucose 167 H 139 H 211 H (65-110) mg/dl Calcium (8.5-10.1) mg/dL Creatine Kinase (26-308) U/L C-Reactive Protein (<=0.9) mg/dL 12/20/18 12/20/18 12/20/18 Range/Units 06:55 06:55 07:10 WBC 5.7 (4.0-10.2) K/uL RBC 4.03 (3.77-5.09) M/uL Hgb 11.4 L (11.7-15.5) g/dL Hct 35.4 (34.0-46.0) % MCV 87.8 (84.0-98.0) fL MCH 28.3 (28.2-33.3) pg MCHC 32.2 (31.7-36.0) g/dL RDW 15.2 H (11.2-14.1) % Plt Count 156 (150-350) K/uL Neut % (Auto) 43.0 L (45.0-80.0) % Lymph % (Auto) 42.9 (10.0-50.0) % [place] % (Auto) 10.4 (2.0-14.0) % Eos % (Auto) 3.5 (0.0-5.0) % Baso % (Auto) 0.2 (0.0-2.0) % Neut # (Auto) 2.45 (1.40-7.00) K/uL Lymph # (Auto) 2.44 (0.50-3.50) K/uL [place] # (Auto) 0.59 (0.00-1.00) K/uL Eos # (Auto) 0.20 (0.00-0.50) K/uL Baso # (Auto) 0.01 (0.00-0.20) K/uL Sodium 141 (136-145) mmol/L Potassium 4.5 (3.5-5.1) mmol/L Chloride 102 (98-107) mmol/L Carbon Dioxide 26.8 (21.0-32.0) mmol/L BUN 19 H (7-18) mg/dL Creatinine 1.19 H (0.51-1.17) mg/dL Est Cr Clr Drug Dosing 37.98 mL/min Estimated GFR (MDRD) 46 mL/min Glucose 150 H (74-106) mg/dL POC Glucose 152 H (65-110) mg/dl Calcium 9.7 (8.5-10.1) mg/dL Creatine Kinase 80 (26-308) U/L C-Reactive Protein 1.9 H (<=0.9) mg/dL [place] Results - Last 24 hrs: Microbiology 12/16/18 08:50 Aerobic Blood Culture - Preliminary Blood - Venous - Lab Draw NO GROWTH AFTER 4 DAYS Anaerobic Blood Culture - Preliminary NO GROWTH AFTER 4 DAYS 12/16/18 08:35 Aerobic Blood Culture - Preliminary Blood - Venous NO GROWTH AFTER 4 DAYS Anaerobic Blood Culture - Preliminary NO GROWTH AFTER 4 DAYS 12/16/18 14:00 Urine Culture - Final Urine, Clean Catch NO GROWTH AFTER 2 DAYS Med Orders - Current: Current Medications Acetaminophen (Tylenol) 650 mg PO Q4H PRN PRN Reason: Pain (Mild 1-3)/fever Last Admin: 12/18/18 08:08 Dose: 650 mg Albuterol (Ventolin Hfa) 0 gm INH Q4H PRN PRN Reason: shortness of breath Ciprofloxacin/Dextrose 400 mg/ (Premix) 200 mls @ 200 mls/hr IV Q12HR [facility] Last Admin: 12/20/18 07:13 Dose: 200 mls/hr Insulin Glargine (Lantus) 30 unit SUBCUT DAILY [facility] Last Admin: 12/20/18 07:15 Dose: 30 unit Ondansetron HCl (Zofran Odt) 4 mg PO Q6H PRN PRN Reason: Nausea/Vomiting Sodium Chloride (Saline Flush) 10 ml FLUSH ASDIRECTED PRN PRN Reason: Keep Vein Open Last Admin: 12/19/18 08:15 Dose: 10 ml Sodium Chloride (Saline Flush) 10 ml FLUSH Q12HR [facility] Last Admin: 12/20/18 07:15 Dose: 10 ml Valproic Acid (Depakene) 250 mg PO BID@08,16 [facility] Last Admin: 12/20/18 07:15 Dose: 250 mg Valproic Acid (Depakene) 500 mg PO BEDTIME [facility] Last Admin: 12/19/18 19:21 Dose: 500 mg Discontinued Medications Acetaminophen (Tylenol) 650 mg PO NOW ONE Stop: 12/16/18 08:20 Last Admin: 12/16/18 09:44 Dose: 650 mg Aspirin (Aspirin) 81 mg PO DAILY [facility] Sodium Chloride (Normal Saline) 1,000 mls @ 1,000 mls/hr IV .BOLUS ONE Stop: 12/16/18 09:17 Last Admin: 12/16/18 08:46 Dose: 1,000 mls/hr Ciprofloxacin/Dextrose 400 mg/ (Premix) 200 mls @ 200 mls/hr IV ONETIME ONE Stop: 12/16/18 10:30 Last Admin: 12/16/18 09:44 Dose: 200 mls/hr Dextrose/Sodium Chloride (Dextrose 5%-1/2 Ns) 1,000 mls @ 125 mls/hr IV ASDIRECTED [facility] Last Admin: 12/16/18 23:19 Dose: 125 mls/hr Sodium Chloride (Normal Saline) 1,000 mls @ 100 mls/hr IV ASDIRECTED [facility] Last Admin: 12/17/18 11:01 Dose: 100 mls/hr Metformin HCl (Glucophage) 1,000 mg PO BIDMEALS [facility] Last Admin: 12/16/18 11:07 Dose: 1,000 mg Simvastatin (Zocor) 40 mg PO BEDTIME [facility]
== END 2018-12-20 10:45 | disposition home or self-care (01) | DRG 872 ==
LOC: LL.ED 08:07 → LL.MS 09:40 → UNDOADMIN 09:40 → LL.MS 09:50
PROVIDERS: ADMIT Family Medicine; ATTEND Family Medicine
DX: A41.9 Sepsis, unspecified organism (principal); R41.82 Altered mental status, unspecified; R41.0 Disorientation, unspecified; N39.0 Urinary tract infection, site not specified; R63.0 Anorexia; R50.9 Fever, unspecified; B96.20 Unspecified Escherichia coli [E. coli] as the cause of diseases classified elsewhere; R53.81 Other malaise; E11.65 Type 2 diabetes mellitus with hyperglycemia; G40.909 Epilepsy, unspecified, not intractable, without status epilepticus; E78.5 Hyperlipidemia, unspecified; H54.7 Unspecified visual loss; E78.00 Pure hypercholesterolemia, unspecified; J45.909 Unspecified asthma, uncomplicated; Z79.899 Other long term (current) drug therapy; Z68.38 Body mass index [BMI] 38.0-38.9, adult; R32 Unspecified urinary incontinence; G43.909 Migraine, unspecified, not intractable, without status migrainosus; E11.9 Type 2 diabetes mellitus without complications; E66.9 Obesity, unspecified; L30.9 Dermatitis, unspecified; Z88.0 Allergy status to penicillin; Z79.82 Long term (current) use of aspirin; Z79.4 Long term (current) use of insulin; Z79.52 Long term (current) use of systemic steroids
CPT/HCPCS: 36415; 71045; 80048; 80053; 80164; 81001; 82550; 82962; 83605; 85025; 86140; 87040; 87086; 96361; 96365; 99285-25; A9270-GY; J0744; J1815-GY; J7030; J7042

== ENCOUNTER 2019-07-29 21:15 | Inpatient (IN) | payer MEDICAID ==
[2019-07-29] MEDS ORDERED: cefTRIAXone 1 GM Vial IM ONE (21:52)
[2019-07-29] MEDS ORDERED: Acetaminophen 500 MG Tab PO ONE (21:52)
[2019-07-29] MEDS ORDERED: cefTRIAXone 1 GM in Sodium Chloride 0.9% 100 ML IV ONE (21:58)
[2019-07-29] MEDS ORDERED: Sodium Chloride 0.9% 1,000 ML IV ONE (21:59)
--- NOTE | 2019-07-29 22:06 | EDM.PDOC ---
ED HPI GENERAL MEDICAL PROBLEM - General Chief Complaint: Fever Stated Complaint: Shaking Time Seen by Provider: 07/29/19 21:42 Source of Information: Reports: Patient History Limitations: Reports: Other (suspected cognitive impairment, only gives short answers to questions, prefers to lay on side and keep eyes closed. ) - History of Present Illness INITIAL COMMENTS - FREE TEXT/NARRATIVE: Patient brought in by EMS. Supposedly was seen earlier at [facility] and diagnosed with UTI. Has taken single Macrobid. Had some shaking chills this evening/didn't feel well and called EMS to be transported to ER. Not very forthcoming with history. Vague. Has not been feeling well for a day or two. Reports some loose stools/nausea. Fevers/chills. Denies pain. ROS negative for acute changes HEENT/Resp/CV/musc-skel/neuro. No other specific complaints during initial evaluation. Son was worried that the chills may have been seizures. Patient does have past history of seizure disorder. Son is not present in ER. - Related Data Allergies Allergy/AdvReac Type Severity Reaction Status Date / Time Penicillins Allergy Rash Verified 07/29/19 21:19 Home Meds: Home Meds Aspirin 81 mg PO DAILY 07/20/16 [History] Insulin Glargine,Hum.Rec.Anlog [Shawn Isaacs] 38 units SUBCUT DAILY 12/13/18 [History] Valproic Acid 500 mg PO BEDTIME 12/13/18 [History] Valproic Acid [Depakene] 250 mg PO BID@08,12 12/13/18 [History] Acetaminophen [Pain Relief] 650 mg PO Q4HR PRN 07/29/19 [History] Nitrofurantoin Monohyd/M-Cryst [Macrobid 100 mg Capsule] 100 mg PO BID 07/29/19 [History] Past Medical History HEENT History: Reports: Impaired Vision, Other (See Below) Other HEENT History: wears glasses Cardiovascular History: Reports: High Cholesterol Respiratory History: Reports: Asthma Gastrointestinal History: Reports: None Genitourinary History: Reports: Urinary Incontinence, Other (See Below) Other Genitourinary History: occasional bladder infections, Musculoskeletal History: Reports: Other (See Below) Other Musculoskeletal History: Lt ankle fracture Neurological History: Reports: Migraines, Seizure, Other (See Below) Other Neuro History: epilepsy Psychiatric History: Reports: Other (See Below) (suspected cognitive impairment. ) Endocrine/Metabolic History: Reports: Diabetes, Type II, IDDM (Poor compliance with blood glucose monitoring), Obesity/BMI 30+ Hematologic History: Reports: None Immunologic History: Reports: None Oncologic (Cancer) History: Reports: None Dermatologic History: Reports: Eczema - Infectious Disease History Infectious Disease History: Reports: Chicken Pox, Influenza - Past Surgical History HEENT Surgical History: Reports: Other (See Below) Respiratory Surgical History: Reports: None GI Surgical History: Reports: None Musculoskeletal Surgical History: Reports: Carpal Tunnel Oncologic Surgical History: Reports: None Social & Family History - Tobacco Use Smoking Status *Q: Never Smoker Second Hand Smoke Exposure: No - Caffeine Use Caffeine Use: Reports: None - Recreational Drug Use Recreational Drug Use: No ED ROS GENERAL - Review of Systems Review Of Systems: Comprehensive ROS is negative, except as noted in HPI. ED EXAM, GENERAL - Physical Exam Exam: See Below Exam Limited By: Uncooperative (patient prefers to lay on her side and be left alone. Pushing nurse away when nurse wanted to do vitals. Keeps eyes shut. Somewhat cooperative with parts of physical exam.) General Appearance: Obese, Other (awake, responds to questions with short answers. No obvious distress. ) Eye Exam: Bilateral Eye: EOMI, PERRL Ears: Normal External Exam Nose: No: Nasal Deformity, Nasal Swelling, Nasal Drainage Throat/Mouth: Normal Lips, Normal Voice, No Airway Compromise Head: Atraumatic, Normocephalic Neck: Supple Respiratory/Chest: No Respiratory Distress, Lungs Clear, Normal Breath Sounds, No Accessory Muscle Use, Chest Non-Tender Cardiovascular: Regular Rate, Rhythm, No Murmur GI/Abdominal: Normal Bowel Sounds, Soft, Non-Tender, No Distention (Female) Exam: Deferred Rectal (Female) Exam: Deferred Back Exam: No: CVA Tenderness (L), CVA Tenderness (R), Muscle Spasm, Paraspinal Tenderness, Vertebral Tenderness Extremities: Non-Tender Neurological: Inattentive Psychiatric: Normal Affect Skin Exam: Warm, Dry, Other (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) Course - Vital Signs Last Recorded V/S: Last Vital Signs Temp 37.7 C 07/29/19 21:58 Pulse 91 07/29/19 21:33 Resp 18 07/29/19 21:33 BP 106/90 07/29/19 21:33 Pulse Ox 96 07/29/19 21:33 - Orders/Labs/Meds Orders: Active Orders 24 hr Category Date Time Status COMPREHENSIVE METABOLIC PN,CMP [CHEM] Stat Lab 07/29/19 21:29 Ordered UA W/MICROSCOPIC [URIN] Stat Lab 07/29/19 21:29 Ordered Sodium Chloride 0.9% [Normal Saline] 1,000 ml Med 07/29/19 21:59 Ordered IV .BOLUS Sodium Chloride 0.9% [Saline Flush] Med 07/29/19 21:59 Ordered 10 ml FLUSH ASDIRECTED PRN cefTRIAXone [Rocephin] 1 gm Med 07/29/19 21:58 Ordered Sodium Chloride 0.9% [Normal Saline] 100 ml IV ONETIME Saline Lock Insert [OM.PC] Routine Oth 07/29/19 21:59 Ordered Medication Orders Ceftriaxone Sodium 1 gm/ (Sodium Chloride) 100 mls @ 200 mls/hr IV ONETIME ONE Stop: 07/29/19 22:27 Sodium Chloride (Normal Saline) 1,000 mls @ 500 mls/hr IV .BOLUS ONE Stop: 07/29/19 23:58 Sodium Chloride (Saline Flush) 10 ml FLUSH ASDIRECTED PRN PRN Reason: Keep Vein Open Labs: Laboratory Tests 07/29/19 07/29/19 Range/Units 21:40 21:40 WBC 10.8 H (4.0-10.2) K/uL RBC 5.40 H (3.77-5.09) M/uL Hgb 15.0 D (11.7-15.5) g/dL Hct 45.3 (34.0-46.0) % MCV 83.9 L (84.0-98.0) fL MCH 27.8 L (28.2-33.3) pg MCHC 33.1 (31.7-36.0) g/dL RDW 15.8 H (11.2-14.1) % Plt Count 169 (150-350) K/uL Neut % (Auto) 88.6 H (45.0-80.0) % Lymph % (Auto) 9.3 L (10.0-50.0) % [place] % (Auto) 1.9 L (2.0-14.0) % Eos % (Auto) 0.1 (0.0-5.0) % Baso % (Auto) 0.1 (0.0-2.0) % Neut # (Auto) 9.53 H (1.40-7.00) K/uL Lymph # (Auto) 1.00 (0.50-3.50) K/uL [place] # (Auto) 0.20 (0.00-1.00) K/uL Eos # (Auto) 0.01 (0.00-0.50) K/uL Baso # (Auto) 0.01 (0.00-0.20) K/uL Lactic Acid 3.5 H (0.4-2.0) mmol/L Meds: Medications Generic Name Dose Route Start Last Admin Trade Name Freq PRN Reason Stop Dose Admin Ceftriaxone Sodium 1 gm/ 100 mls @ 200 mls/hr 07/29/19 21:58 Sodium Chloride IV 07/29/19 22:27 ONETIME ONE Sodium Chloride 1,000 mls @ 500 mls/hr 07/29/19 21:59 Normal Saline IV 07/29/19 23:58 .BOLUS ONE Sodium Chloride 10 ml 07/29/19 21:59 Saline Flush FLUSH ASDIRECTED PRN Keep Vein Open Discontinued Medications Generic Name Dose Route Start Last Admin Trade Name Freq PRN Reason Stop Dose Admin Acetaminophen 1,000 mg 07/29/19 21:52 07/29/19 21:58 Tylenol Extra Strength PO 07/29/19 21:53 1,000 mg ONETIME ONE Administration Ceftriaxone Sodium 1 gm 07/29/19 21:52 Rocephin IM 07/29/19 21:53 ONETIME ONE - Re-Assessments/Exams Free Text/Narrative Re-Assessment/Exam: CBC/Chem/UA/Lactic acid requested. Given earlier diagnosis of UTI today and history of multiple presentations in past with UTI, patient given Rocephin while labs pending. Normal saline also given. 07/29/19 22:28 Elevated Lactic Acid, mild elevation WBC. Admit for IV antibiotic therapy for UTI. Departure - Departure Time of Disposition: 22:39 Disposition: Admitted As Inpatient 64 Condition: Fair Clinical Impression: UTI (urinary tract infection), bacterial, Elevated lactic acid level - Discharge Information *PRESCRIPTION DRUG MONITORING PROGRAM REVIEWED*: Not Applicable *COPY OF PRESCRIPTION DRUG MONITORING REPORT IN PATIENT GREY: Not Applicable Referrals: Karlene Moran PA-C [Primary Care Provider] - Forms: ED Department Discharge - Problem List & Annotations (1) UTI (urinary tract infection), bacterial SNOMED Code(s): 535772273 Code(s): N39.0 - URINARY TRACT INFECTION, SITE NOT SPECIFIED; A49.9 - BACTERIAL INFECTION, UNSPECIFIED Status: Acute Priority: High Onset Date: ~12/13/18 Annotation/Comment:: Previous diagnosis of UTI at [facility] today. UC ordered/pending. Admit and give Rocephin IV, fluids. (2) Asthma SNOMED Code(s): 059667123 Code(s): J45.909 - UNSPECIFIED ASTHMA, UNCOMPLICATED Status: Chronic Priority: Low Annotation/Comment:: Currently stable per patient Qualifiers: Asthma severity: unspecified severity Asthma complication type: uncomplicated (3) Diabetes SNOMED Code(s): 33607787 Code(s): E11.9 - TYPE 2 DIABETES MELLITUS WITHOUT COMPLICATIONS Status: Chronic Priority: Medium Annotation/Comment:: Insulin dependent. Very poor control. Patient historically does not monitor own blood glucose levels at home and makes poor dietary choices. Updated A1C ordered. Qualifiers: Diabetes mellitus type: type 2 Diabetes mellitus group home insulin use: with exterminator termite use Diabetes mellitus complication status: with hyperglycemia Qualified Code(s): E11.65 - Type 2 diabetes mellitus with hyperglycemia; Z79.4 - [facility] (current) use of insulin (4) Epilepsy SNOMED Code(s): 00334163 Code(s): G40.909 - EPILEPSY, UNSP, NOT INTRACTABLE, WITHOUT STATUS EPILEPTICUS Status: Chronic Priority: Low Annotation/Comment:: Has been stable per patient. Qualifiers: Epilepsy type: unspecified Intractability: not intractable Status epilepticus: without status epilepticus Qualified Code(s): G40.909 - Epilepsy , unspecified, not intractable, without status epilepticus (5) Hyperlipidemia SNOMED Code(s): 59629968 Code(s): E78.5 - HYPERLIPIDEMIA, UNSPECIFIED Status: Chronic Priority: Low Annotation/Comment:: Followed for this by primary provider Qualifiers: Hyperlipidemia type: unspecified Qualified Code(s): E78.5 - Hyperlipidemia , unspecified (6) Elevated lactic acid level SNOMED Code(s): 1189513 Code(s): R79.89 - OTHER SPECIFIED ABNORMAL FINDINGS OF BLOOD CHEMISTRY Status: Acute Priority: High Annotation/Comment:: recheck in AM - Problem List Review Problem List Initiated/Reviewed/Updated: Yes - My Orders Last 24 Hours: My Active Orders 07/29/19 21:29 COMPREHENSIVE METABOLIC PN,CMP [CHEM] Stat UA W/MICROSCOPIC [URIN] Stat 07/29/19 21:58 cefTRIAXone [Rocephin] 1 gm Sodium Chloride 0.9% [Normal Saline] 100 ml IV ONETIME 07/29/19 21:59 Sodium Chloride 0.9% [Normal Saline] 1,000 ml IV .BOLUS Sodium Chloride 0.9% [Saline Flush] 10 ml FLUSH ASDIRECTED PRN Saline Lock Insert [OM.PC] Routine - Assessment/Plan Admission H&P: Please use this note as an admission H&P Last 24 Hours: My Active Orders 07/29/19 21:29 COMPREHENSIVE METABOLIC PN,CMP [CHEM] Stat UA W/MICROSCOPIC [URIN] Stat 07/29/19 21:58 cefTRIAXone [Rocephin] 1 gm Sodium Chloride 0.9% [Normal Saline] 100 ml IV ONETIME 07/29/19 21:59 Sodium Chloride 0.9% [Normal Saline] 1,000 ml IV .BOLUS Sodium Chloride 0.9% [Saline Flush] 10 ml FLUSH ASDIRECTED PRN Saline Lock Insert [OM.PC] Routine Assessment:: as above Plan: as above. Elevated lactic acid and suspected mental status worsening suggestive of potentially developing sepsis. Anticipate 3- 4 days of inpatient stay for treatment. to take over patient's care tomorrow.
[2019-07-29] MEDS ORDERED: Ondansetron 4 MG/2 ML SDV IVPUSH PRN (22:47)
[2019-07-29] MEDS ORDERED: Pneumococcal Polyvalent-23 Vaccine 0.5 ML SDV IM ONE (23:02)
[2019-07-30] MEDS: Sodium Chloride 0.9% 10 ML Syringe FLUSH PRN ×2 (04:09→07:32)
[2019-07-30 06:21] LABS: HEMOGLOBIN A1C 8.2 % (4.3-5.7)
[2019-07-30] MEDS: Acetaminophen 325 MG Tab PO PRN (07:34)
[2019-07-30] MEDS: Valproic Acid 250 MG Cap PO SCH ×3 (07:35→19:28)
[2019-07-30] MEDS: Aspirin 81 MG Tab.Chew PO SCH (07:35)
[2019-07-30] MEDS: Enoxaparin 40 MG/0.4 ML Syringe SUBCUT SCH (07:39)
[2019-07-30] MEDS ORDERED: cefTRIAXone 1 GM in Sodium Chloride 0.9% 100 ML IV SCH (08:00)
[2019-07-30] MEDS: Insulin Regular, Human 100 Units/ML 3 ML Vial SUBCUT SCH ×2 (08:05→17:42)
[2019-07-30] MEDS ORDERED: Sodium Chloride 0.9% 1,000 ML IV ONE (08:14)
[2019-07-30] MEDS ORDERED: Ketorolac 30 MG/ML SDV IVPUSH ONE (08:36)
[2019-07-30] MEDS ORDERED: Ketorolac 15 MG/ML SDV IVPUSH ONE (09:00)
[2019-07-30] MEDS ORDERED: Sodium Chloride 0.9% 1,000 ML IV SCH (09:30)
--- NOTE | 2019-07-30 09:41 | PCM.PN ---
- General Info Date of Service: 07/30/19 Admission Dx/Problem (Free Text): 1. UTI with suspected sepsis 2. IDDM Subjective Update: Patient is a somewhat poor historian with mental deficit versus confusion from current infection Functional Status: Reports: Pain Controlled, Tolerating Diet, Urinating. Denies : Ambulating, New Symptoms, Incentive Spirometry Pain Score: 0 - Review of Systems General: Reports: Fever (39.3 this morning), Fatigue, Chills, Night Sweats. Denies: Weakness, Malaise, Appetite (Adequate) HEENT: Reports: Glasses (Although not wearing today). Denies: Ear Pain, Eye Pain, Headaches, Sinus Congestion, Sore Throat, Rhinitis, Visual Changes Pulmonary: Denies: Shortness of Breath, Pleuritic Chest Pain, Cough, Sputum, Wheezing Cardiovascular: Denies: Chest Pain, Palpitations, Dyspnea on Exertion, Orthopnea , PND, Edema, Lightheadedness Gastrointestinal: Reports: No Symptoms, Other (No bowel movement since admission ). Denies: Abdominal Pain, Constipation, Decreased Appetite, Diarrhea, Difficulty Swallowing, Flatus, Hematochezia, Melena, Nausea, Vomiting Genitourinary: Reports: No Symptoms. Denies: Dysuria, Burning, Pain, Urgency, Incontinence, Hematuria, Retention, Flank Pain Musculoskeletal: Reports: No Symptoms. Denies: Neck Pain, Shoulder Pain, Arm Pain, Back Pain Skin: Reports: Bruising (Mild at the stenotic site). Denies: Diaphoresis Neurological: Reports: Confusion, Pre-Existing Deficit, Weakness. Denies: Headache, Numbness, Paresthesia, Seizure, Tingling Psychiatric: Reports: Confusion. Denies: Depression, Anxiety, Agitation, Hallucinations - Patient Data Vitals - Most Recent: Last Vital Signs Temp 39.3 C H 07/30/19 07:14 Pulse 96 07/30/19 07:14 Resp 36 H 07/30/19 07:14 BP 184/86 H 07/30/19 07:14 Pulse Ox 96 07/30/19 07:14 Vital Signs - 24 hr 07/29/19 07/29/19 07/29/19 21:33 21:58 22:47 Temperature 37.7 C Temperature [ 37.7 C 38.8 C H Oral] Pulse, 91 94 Peripheral [ Right Pulse Oximetry] Respiratory 18 18 Rate Blood Pressure 106/90 154/76 H [Left Upper Arm ] O2 Sat by Pulse 96 97 Oximetry 07/29/19 07/30/19 07/30/19 22:49 04:00 07:14 Temperature Temperature [ 36.9 C 39.3 C H Oral] Pulse, 102 H 96 Peripheral [ Right Pulse Oximetry] Respiratory 15 36 H Rate Blood Pressure 119/56 L 184/86 H [Left Upper Arm ] O2 Sat by Pulse 97 95 96 Oximetry Weight - Most Recent: 88.9 kg I&O - Last 24 Hours: Intake & Output 07/29/19 07/30/19 07/30/19 22:59 06:59 14:59 Output Total 50 200 Balance -50 -200 Imaging Impressions - Last 24 Hours: Chest x-ray, portable, shows somewhat poor inspiratory film. Borderline centralized CHF versus pulmonary hypertension with no pulmonary infiltrates, pneumothorax, cardiomegaly, etc.. Mild aortic valve calcification. Moderately elevated right hemidiaphragm monitor technician shows normal sinus rhythm in the 70s to 80s with no ectopy or arrhythmia. Lab Results Last 24 Hours: Laboratory Results - last 24 hr 07/29/19 07/29/19 07/29/19 Range/Units 21:40 21:40 21:40 WBC 10.8 H (4.0-10.2) K/uL RBC 5.40 H (3.77-5.09) M/uL Hgb 15.0 D (11.7-15.5) g/dL Hct 45.3 (34.0-46.0) % MCV 83.9 L (84.0-98.0) fL MCH 27.8 L (28.2-33.3) pg MCHC 33.1 (31.7-36.0) g/dL RDW 15.8 H (11.2-14.1) % Plt Count 169 (150-350) K/uL Neut % (Auto) 88.6 H (45.0-80.0) % Lymph % (Auto) 9.3 L (10.0-50.0) % [place] % (Auto) 1.9 L (2.0-14.0) % Eos % (Auto) 0.1 (0.0-5.0) % Baso % (Auto) 0.1 (0.0-2.0) % Neut # (Auto) 9.53 H (1.40-7.00) K/uL Lymph # (Auto) 1.00 (0.50-3.50) K/uL [place] # (Auto) 0.20 (0.00-1.00) K/uL Eos # (Auto) 0.01 (0.00-0.50) K/uL Baso # (Auto) 0.01 (0.00-0.20) K/uL PT (9.5-12.0) SEC INR Sodium 139 (136-145) mmol/L Potassium 3.9 (3.5-5.1) mmol/L Chloride 98 (98-107) mmol/L Carbon Dioxide 28.5 (21.0-32.0) mmol/L BUN 18 (7-18) mg/dL Creatinine 1.43 H (0.51-1.17) mg/dL Est Cr Clr Drug Dosing 32.67 mL/min Estimated GFR (MDRD) 37 mL/min Glucose 144 H (74-106) mg/dL POC Glucose (65-110) mg/dl Hemoglobin A1c (4.3-5.7) % Lactic Acid 3.5 H (0.4-2.0) mmol/L Calcium 9.9 (8.5-10.1) mg/dL Magnesium (1.8-2.4) mg/dL Total Bilirubin 0.5 (0.2-1.0) mg/dL AST 24 (15-37) U/L ALT 33 (12-78) U/L Alkaline Phosphatase 101 (46-116) IU/L Total Protein 8.4 H (6.4-8.2) g/dL Albumin 4.0 (3.4-5.0) g/dL Specimen Type Urine Color Urine Appearance Urine pH (5.0-9.0) Ur Specific [place] (1.005-1.030) Urine Protein (NEGATIVE) mg/dL Urine Glucose (UA) (NEGATIVE) mg/dL Urine Ketones (NEGATIVE) mg/dL Urine Occult Blood (NEGATIVE) Urine Nitrite (NEGATIVE) Urine Bilirubin (NEGATIVE) Urine Urobilinogen (0.2-1.0) E.U./dL Ur Leukocyte Esterase (NEGATIVE) Urine RBC /HPF Urine WBC /HPF Ur Epithelial Cells /LPF Amorphous Sediment (0/HPF) /HPF Urine Bacteria (NONE TO FEW) /HPF Hyaline Casts (NEGATIVE) /LPF Granular Casts (NEGATIVE) /LPF Urine Other 07/29/19 07/29/19 07/29/19 Range/Units 21:40 22:40 22:45 WBC (4.0-10.2) K/uL RBC (3.77-5.09) M/uL Hgb (11.7-15.5) g/dL Hct (34.0-46.0) % MCV (84.0-98.0) fL MCH (28.2-33.3) pg MCHC (31.7-36.0) g/dL RDW (11.2-14.1) % Plt Count (150-350) K/uL Neut % (Auto) (45.0-80.0) % Lymph % (Auto) (10.0-50.0) % [place] % (Auto) (2.0-14.0) % Eos % (Auto) (0.0-5.0) % Baso % (Auto) (0.0-2.0) % Neut # (Auto) (1.40-7.00) K/uL Lymph # (Auto) (0.50-3.50) K/uL [place] # (Auto) (0.00-1.00) K/uL Eos # (Auto) (0.00-0.50) K/uL Baso # (Auto) (0.00-0.20) K/uL PT (9.5-12.0) SEC INR Sodium (136-145) mmol/L Potassium (3.5-5.1) mmol/L Chloride (98-107) mmol/L Carbon Dioxide (21.0-32.0) mmol/L BUN (7-18) mg/dL Creatinine (0.51-1.17) mg/dL Est Cr Clr Drug Dosing mL/min Estimated GFR (MDRD) mL/min Glucose (74-106) mg/dL POC Glucose (65-110) mg/dl Hemoglobin A1c 8.2 H (4.3-5.7) % Lactic Acid (0.4-2.0) mmol/L Calcium (8.5-10.1) mg/dL Magnesium 1.3 L (1.8-2.4) mg/dL Total Bilirubin (0.2-1.0) mg/dL AST (15-37) U/L ALT (12-78) U/L Alkaline Phosphatase (46-116) IU/L Total Protein (6.4-8.2) g/dL Albumin (3.4-5.0) g/dL Specimen Type Urinvoid Urine Color Yellow Urine Appearance Slightly cloudy Urine pH 5.0 (5.0-9.0) Ur Specific [place] 1.020 (1.005-1.030) Urine Protein 100 H (NEGATIVE) mg/dL Urine Glucose (UA) Negative (NEGATIVE) mg/dL Urine Ketones Trace H (NEGATIVE) mg/dL Urine Occult Blood Trace-intact H (NEGATIVE) Urine Nitrite Negative (NEGATIVE) Urine Bilirubin Negative (NEGATIVE) Urine Urobilinogen 0.2 (0.2-1.0) E.U./dL Ur Leukocyte Esterase Negative (NEGATIVE) Urine RBC 5-10 H /HPF Urine WBC 5-10 H /HPF Ur Epithelial Cells Moderate H /LPF Amorphous Sediment Moderate H (0/HPF) /HPF Urine Bacteria Moderate H (NONE TO FEW) /HPF Hyaline Casts Few H (NEGATIVE) /LPF Granular Casts Few H (NEGATIVE) /LPF Urine Other See note H 07/30/19 07/30/19 07/30/19 Range/Units 07:20 07:20 07:20 WBC 10.7 H (4.0-10.2) K/uL RBC 5.19 H (3.77-5.09) M/uL Hgb 14.3 (11.7-15.5) g/dL Hct 43.9 (34.0-46.0) % MCV 84.6 (84.0-98.0) fL MCH 27.6 L (28.2-33.3) pg MCHC 32.6 (31.7-36.0) g/dL RDW 16.1 H (11.2-14.1) % Plt Count 151 (150-350) K/uL Neut % (Auto) 93.1 H (45.0-80.0) % Lymph % (Auto) 2.7 L (10.0-50.0) % [place] % (Auto) 4.1 (2.0-14.0) % Eos % (Auto) 0.1 (0.0-5.0) % Baso % (Auto) 0.0 (0.0-2.0) % Neut # (Auto) 9.94 H (1.40-7.00) K/uL Lymph # (Auto) 0.29 L (0.50-3.50) K/uL [place] # (Auto) 0.44 (0.00-1.00) K/uL Eos # (Auto) 0.01 (0.00-0.50) K/uL Baso # (Auto) 0.00 (0.00-0.20) K/uL PT 10.7 (9.5-12.0) SEC INR 1.0 Sodium (136-145) mmol/L Potassium (3.5-5.1) mmol/L Chloride (98-107) mmol/L Carbon Dioxide (21.0-32.0) mmol/L BUN (7-18) mg/dL Creatinine (0.51-1.17) mg/dL Est Cr Clr Drug Dosing mL/min Estimated GFR (MDRD) mL/min Glucose (74-106) mg/dL POC Glucose (65-110) mg/dl Hemoglobin A1c (4.3-5.7) % Lactic Acid 4.7 H (0.4-2.0) mmol/L Calcium (8.5-10.1) mg/dL Magnesium (1.8-2.4) mg/dL Total Bilirubin (0.2-1.0) mg/dL AST (15-37) U/L ALT (12-78) U/L Alkaline Phosphatase (46-116) IU/L Total Protein (6.4-8.2) g/dL Albumin (3.4-5.0) g/dL Specimen Type Urine Color Urine Appearance Urine pH (5.0-9.0) Ur Specific [place] (1.005-1.030) Urine Protein (NEGATIVE) mg/dL Urine Glucose (UA) (NEGATIVE) mg/dL Urine Ketones (NEGATIVE) mg/dL Urine Occult Blood (NEGATIVE) Urine Nitrite (NEGATIVE) Urine Bilirubin (NEGATIVE) Urine Urobilinogen (0.2-1.0) E.U./dL Ur Leukocyte Esterase (NEGATIVE) Urine RBC /HPF Urine WBC /HPF Ur Epithelial Cells /LPF Amorphous Sediment (0/HPF) /HPF Urine Bacteria (NONE TO FEW) /HPF Hyaline Casts (NEGATIVE) /LPF Granular Casts (NEGATIVE) /LPF Urine Other 07/30/19 07/30/19 Range/Units 07:20 07:21 WBC (4.0-10.2) K/uL RBC (3.77-5.09) M/uL Hgb (11.7-15.5) g/dL Hct (34.0-46.0) % MCV (84.0-98.0) fL MCH (28.2-33.3) pg MCHC (31.7-36.0) g/dL RDW (11.2-14.1) % Plt Count (150-350) K/uL Neut % (Auto) (45.0-80.0) % Lymph % (Auto) (10.0-50.0) % [place] % (Auto) (2.0-14.0) % Eos % (Auto) (0.0-5.0) % Baso % (Auto) (0.0-2.0) % Neut # (Auto) (1.40-7.00) K/uL Lymph # (Auto) (0.50-3.50) K/uL [place] # (Auto) (0.00-1.00) K/uL Eos # (Auto) (0.00-0.50) K/uL Baso # (Auto) (0.00-0.20) K/uL PT (9.5-12.0) SEC INR Sodium 137 (136-145) mmol/L Potassium 5.2 H (3.5-5.1) mmol/L Chloride 100 (98-107) mmol/L Carbon Dioxide 27.0 (21.0-32.0) mmol/L BUN 18 (7-18) mg/dL Creatinine 1.50 H (0.51-1.17) mg/dL Est Cr Clr Drug Dosing 31.15 mL/min Estimated GFR (MDRD) 35 mL/min Glucose 157 H (74-106) mg/dL POC Glucose 154 H (65-110) mg/dl Hemoglobin A1c (4.3-5.7) % Lactic Acid (0.4-2.0) mmol/L Calcium 9.3 (8.5-10.1) mg/dL Magnesium 2.1 (1.8-2.4) mg/dL Total Bilirubin (0.2-1.0) mg/dL AST (15-37) U/L ALT (12-78) U/L Alkaline Phosphatase (46-116) IU/L Total Protein (6.4-8.2) g/dL Albumin (3.4-5.0) g/dL Specimen Type Urine Color Urine Appearance Urine pH (5.0-9.0) Ur Specific [place] (1.005-1.030) Urine Protein (NEGATIVE) mg/dL Urine Glucose (UA) (NEGATIVE) mg/dL Urine Ketones (NEGATIVE) mg/dL Urine Occult Blood (NEGATIVE) Urine Nitrite (NEGATIVE) Urine Bilirubin (NEGATIVE) Urine Urobilinogen (0.2-1.0) E.U./dL Ur Leukocyte Esterase (NEGATIVE) Urine RBC /HPF Urine WBC /HPF Ur Epithelial Cells /LPF Amorphous Sediment (0/HPF) /HPF Urine Bacteria (NONE TO FEW) /HPF Hyaline Casts (NEGATIVE) /LPF Granular Casts (NEGATIVE) /LPF Urine Other [place] Results Last 24 Hours: Urine culture pending Blood cultures ordered 3 with results pending Med Orders - Current: Current Medications Acetaminophen (Tylenol) 650 mg PO Q4H PRN PRN Reason: Pain (Mild 1-3)/fever Last Admin: 07/30/19 07:34 Dose: 650 mg Aspirin (Aspirin) 81 mg PO DAILY [facility] Last Admin: 07/30/19 07:35 Dose: 81 mg Enoxaparin Sodium (Lovenox) 40 mg SUBCUT DAILY [facility] Last Admin: 07/30/19 07:39 Dose: 40 mg Ceftriaxone Sodium 1 gm/ (Sodium Chloride) 100 mls @ 200 mls/hr IV Q24H [facility] Last Admin: 07/30/19 07:32 Dose: 200 mls/hr Sodium Chloride (Normal Saline) 1,000 mls @ 150 mls/hr IV ASDIRECTED [facility] Last Admin: 07/30/19 09:35 Dose: 150 mls/hr Insulin Human Regular (Humulin R) 0 unit SUBCUT BIDAC [facility]; Protocol Last Admin: 07/30/19 08:05 Dose: Not Given Ondansetron HCl (Zofran) 4 mg IVPUSH Q6H PRN PRN Reason: Nausea/Vomiting Sodium Chloride (Saline Flush) 10 ml FLUSH ASDIRECTED PRN PRN Reason: Keep Vein Open Last Admin: 07/30/19 07:32 Dose: 10 ml Valproic Acid (Depakene) 250 mg PO BID@08,12 [facility] Last Admin: 07/30/19 07:35 Dose: 250 mg Valproic Acid (Depakene) 500 mg PO BEDTIME [facility] Discontinued Medications Acetaminophen (Tylenol Extra Strength) 1,000 mg PO ONETIME ONE Stop: 07/29/19 21:53 Last Admin: 07/29/19 21:58 Dose: 1,000 mg Ceftriaxone Sodium (Rocephin) 1 gm IM ONETIME ONE Stop: 07/29/19 21:53 Last Admin: 07/29/19 23:08 Dose: Not Given Ceftriaxone Sodium 1 gm/ (Sodium Chloride) 100 mls @ 200 mls/hr IV ONETIME ONE Stop: 07/29/19 22:27 Last Admin: 07/29/19 22:25 Dose: 200 mls/hr Sodium Chloride (Normal Saline) 1,000 mls @ 500 mls/hr IV .BOLUS ONE Stop: 07/29/19 23:58 Last Admin: 07/29/19 22:21 Dose: 500 mls/hr Magnesium Sulfate/Dextrose 1 (gm/ Premix) 100 mls @ 100 mls/hr IV ONETIME ONE Stop: 07/29/19 23:52 Last Admin: 07/29/19 23:19 Dose: 100 mls/hr Magnesium Sulfate/Dextrose 1 (gm/ Premix) 100 mls @ 100 mls/hr IV ONETIME ONE Stop: 07/30/19 02:59 Last Admin: 07/30/19 02:20 Dose: 100 mls/hr Magnesium Sulfate/Dextrose 1 (gm/ Premix) 100 mls @ 100 mls/hr IV ONETIME ONE Stop: 07/30/19 04:59 Last Admin: 07/30/19 04:07 Dose: 100 mls/hr Sodium Chloride (Normal Saline) 1,000 mls @ 999 mls/hr IV .BOLUS ONE Stop: 07/30/19 09:14 Last Admin: 07/30/19 08:31 Dose: 999 mls/hr Ketorolac Tromethamine (Toradol) 15 mg IVPUSH ONETIME ONE Stop: 07/30/19 09:01 Pneumococcal Polyvalent Vaccine (Pneumovax 23) 0.5 ml IM .ONCE ONE Stop: 07/29/19 23:03 - Exam Quality Assessment: DVT Prophylaxis (Lovenox). No: Supplemental Oxygen, Central Line/PICC, Urine Catheter, Skin Breakdown, Restraints General: Alert, Cooperative, Lethargic (Borderline), Other (Somewhat improving confusion from admission) HEENT: Pupils Equal, Pupils Reactive, EOMI, Mucous Membr. Moist/[place]: Supple, No JVD, No Thyromegaly, +2 Carotid Pulse wo Bruit. No: Lymphadenopathy Lungs: Clear to Auscultation, Normal Respiratory Effort. No: Stridor Cardiovascular: Regular Rate, Regular Rhythm, No Murmurs. No: Gallops, Rubs GI/Abdominal Exam: Normal Bowel Sounds, Soft, Non-Tender, No Organomegaly, No Distention, No Abnormal Bruit, No Mass, Other (Obese. No CVA tenderness). No: Guarding (Female) Exam: Deferred Back Exam: Normal Inspection, Full Range of Motion. No: CVA Tenderness (L), CVA Tenderness (R), Muscle Spasm Extremities: Normal Inspection, Normal Range of Motion, Non-Tender, No Pedal Edema, Normal Capillary Refill. No: Stuart's Sign Peripheral Pulses: 2+: Radial (L), Radial (R), Dorsalis Pedis (L), Dorsalis Pedis (R) Skin: Warm, Dry, Intact, Ecchymosis (Mild that Lovenox sites) Neurological: No New Focal Deficit, Other (Confusion and mild lethargy as above) Psy/Mental Status: Other (Mild lethargy). No: Agitated, Hallucinations, Withdrawal Symptoms EKG INTERPRETATION EKG Date: 07/30/19 Time: 10:03 Rhythm: NSR Rate (Beats/Min): 80 [place]: Normal (Left cardiac axis) P-Wave: Present (I'll diffuse biphasic P waves) QRS: Wide (QRS interval of 0.10 seconds representing repolarization changes) ST-T: Other (Mild downsloping ST changes with T-wave inversion in leads 1, 2, aVL, and V5 through V6 consistent with possible lateral wall cardiac ischemia) IL/PQ Interval: 0.12 seconds representing a short IL interval with no delta waves noted. Comparison: NA - No Prior EKG EKG Interpretation Comments: 1. Possible lateral wall cardiac ischemia 2. Short IL interval 3. Atrial enlargementleft - Problem List & Annotations (1) Sepsis SNOMED Code(s): 93824613 Code(s): A41.9 - SEPSIS, UNSPECIFIED ORGANISM Status: Acute Priority: High Current Visit: Yes Onset Date: 07/30/19 Qualifiers: Sepsis type: sepsis due to unspecified organism Sepsis acute organ dysfunction status: without acute organ dysfunction Qualified Code(s): A41.9 - Sepsis, unspecified organism Annotation/Comment:: Suspect urosepsis as below. Patient has been resistant to previously initiated IV Rocephin therapy, which will be continued. Initiate immediately additional IV vancomycin therapy with dosing recommendations provided by pharmacy. Note the patient is allergic to penicillins. Sepsis bundle was not initiated in the emergency room, however I did continue with follow-up sepsis bundle this morning. A blood culture 1 was collected yesterday , however not ordered. A blood culture will be conducted on the specimen with additional blood cultures 2 today despite previous IV Rocephin therapy, although these were collected prior to initiation of IV vancomycin as above. Blood pressure somewhat elevated today with no need for vasopressors at this time. Vital signs are otherwise stable with exception of mildly progressive fever with stable leukocytosis this morning. Continue aggressive IV hydration as below with repeat blood work in the a.m.. Continue to observe patient's symptoms closely with possible hospital transfer depending on her clinical course. No chest pain or anginal type symptoms despite some lateral wall ischemia by today's EKG. Cardiac monitoring initiated secondary to her sepsis, etc.. Initiate standard rule out SD orders. Note current subcutaneous Lovenox at DVT prophylaxis dose. (2) UTI (urinary tract infection), bacterial SNOMED Code(s): 368206825 Code(s): N39.0 - URINARY TRACT INFECTION, SITE NOT SPECIFIED; A49.9 - BACTERIAL INFECTION, UNSPECIFIED Status: Acute Priority: High Current Visit: Yes Onset Date: ~12/13/18 Annotation/Comment:: Suspect sepsis/ urosepsis with progressive lactic acid elevation despite IV hydration. Lactic acid level to be repeated at noon today and also in the a.m. with additional levels depending on her clinical course. Urine culture and sensitivity is pending. Aggressive anabolic therapy as above. (3) Elevated lactic acid level SNOMED Code(s): 2263863 Code(s): R79.89 - OTHER SPECIFIED ABNORMAL FINDINGS OF BLOOD CHEMISTRY Status: Acute Priority: High Current Visit: Yes Onset Date: 07/29/19 Annotation/Comment:: As above. (4) Confusion SNOMED Code(s): 959703424 Code(s): R41.0 - DISORIENTATION, UNSPECIFIED Status: Acute Priority: High Current Visit: Yes Onset Date: 07/30/19 Annotation/Comment:: Initiate neuro-logical checks with vitals. Baseline mental status not certain at this time with probable chronic mental deficit per emergency room note. Confusion seems somewhat improved based on these records, however continue to observe closely as above. 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 (6) Renal insufficiency SNOMED Code(s): 640433307, 493946758 Code(s): N28.9 - DISORDER OF KIDNEY AND URETER, UNSPECIFIED Status: Chronic Current Visit: Yes Onset Date: ~07/29/19 Annotation/Comment:: Probable diabetic nephropathy. Mildly increased creatinine today. Continue IV fluids for now with close observation of her renal status especially in light of additional IV vancomycin therapy. (7) Hyperkalemia SNOMED Code(s): 86167835 Code(s): E87.5 - HYPERKALEMIA Status: Acute Priority: Medium Current Visit: Yes Onset Date: 07/30/19 Annotation/Comment:: Hyperkalemia this morning. Cannot rule out possible hemolysis. Basic metabolic panel to be repeated at noon today with additional blood work in the a.m., including coagulation studies, etc. especially in light of her current subcutaneous Lovenox therapy. Continue aggressive IV normal saline hydration, including initial 1 L IV bolus, although this may need to be repeated depending on her clinical course. (8) Hypomagnesemia SNOMED Code(s): 802335878 Code(s): E83.42 - HYPOMAGNESEMIA Status: Acute Priority: Medium Current Visit: Yes Onset Date: 07/30/19 Annotation/Comment:: IV magnesium sulfate given shortly after admission. Magnesium level normal today. Repeat magnesium and phosphate levels in the a.m. especially in light of patient's progressive renal insufficiency. (9) Asthma SNOMED Code(s): 604289803 Code(s): J45.909 - UNSPECIFIED ASTHMA, UNCOMPLICATED Status: Chronic Priority: Medium Current Visit: Yes Qualifiers: Asthma severity: mild Asthma persistence: intermittent Asthma complication type: uncomplicated Qualified Code(s): J45.20 - Mild intermittent asthma, uncomplicated Annotation/Comment:: Currently stable per patient with no recent cough or bronchitic type symptoms. No chest x-ray results above. (10) Epilepsy SNOMED Code(s): 29942737 Code(s): G40.909 - EPILEPSY, UNSP, NOT INTRACTABLE, WITHOUT STATUS EPILEPTICUS Status: Chronic Priority: Medium Current Visit: Yes Qualifiers: Epilepsy type: unspecified Intractability: not intractable Status epilepticus: without status epilepticus Qualified Code(s): G40.909 - Epilepsy , unspecified, not intractable, without status epilepticus Annotation/Comment:: Stable with current medical therapy with no seizure activity to this point. Continue to observe closely, including neurological checks as above. (11) Hyperlipidemia SNOMED Code(s): 29632585 Code(s): E78.5 - HYPERLIPIDEMIA, UNSPECIFIED Status: Chronic Priority: Medium Current Visit: Yes Qualifiers: Hyperlipidemia type: unspecified Qualified Code(s): E78.5 - Hyperlipidemia , unspecified Annotation/Comment:: Not currently under therapy. Note current obesity and IDDM. Continue to observe closely by her by primary provider. (12) Palliative care patient SNOMED Code(s): 641444729 Code(s): Z51.5 - ENCOUNTER FOR PALLIATIVE CARE Status: Chronic Priority: High Current Visit: Yes Annotation/Comment:: Note no code/palliative care per admitting physician. She may still benefit from hospital transfer, however. - Problem List Review Problem List Initiated/Reviewed/Updated: Yes - My Orders Last 24 Hours: My Active Orders 07/29/19 21:40 CULTURE BLOOD [BC] Stat 07/30/19 09:19 Chest 2V [CR] Routine 07/30/19 09:25 CULTURE BLOOD [BC] Stat CULTURE BLOOD [BC] Stat Blood Culture x2 Reflex Set [OM.PC] Urgent 07/30/19 12:00 BASIC METABOLIC PANEL,BMP [CHEM] Routine LACTIC ACID [CHEM] Routine 07/31/19 05:11 C-REACTIVE PROTEIN [CHEM] Routine CBC WITH AUTO DIFF [HEME] Routine COMPREHENSIVE METABOLIC PN,CMP [CHEM] Routine INR,PT,PROTHROMBIN TIME [COAG] Routine LACTIC ACID [CHEM] Routine MAGNESIUM [CHEM] Routine PHOSPHORUS [CHEM] Routine PTT,PARTIAL THROMBOPLSTIN TIME [COAG] Routine 08/01/19 11:00 VANCOMYCIN TROUGH [CHEM] Routine - Assessment Assessment:: As above - Plan Plan:: As above. Extensive precautions were given to the patient, who is in agreement with the treatment plan. Dr. Yuen assumes care in the a.m. once again. Patient will need an additional 2-3 days of hospitalization with possible earlier transfer depending on her clinical course
[2019-07-30] MEDS: cefTRIAXone 1 GM in Sodium Chloride 0.9% 100 ML IV SCH (19:28)
[2019-07-30] MEDS: Sodium Chloride 0.9% 1,000 ML IV SCH (20:04)
[2019-07-31] MEDS: Acetaminophen 325 MG Tab PO PRN (03:32)
[2019-07-31] MEDS: Sodium Chloride 0.9% 1,000 ML IV SCH (08:53)
[2019-07-31] MEDS: Aspirin 81 MG Tab.Chew PO SCH (08:53)
[2019-07-31] MEDS: Valproic Acid 250 MG Cap PO SCH ×3 (08:53→20:36)
[2019-07-31] MEDS: Enoxaparin 40 MG/0.4 ML Syringe SUBCUT SCH (08:53)
[2019-07-31] MEDS: cefTRIAXone 1 GM in Sodium Chloride 0.9% 100 ML IV SCH ×2 (08:54→22:07)
[2019-07-31] MEDS: Insulin Regular, Human 100 Units/ML 3 ML Vial SUBCUT SCH ×2 (08:58→18:44)
--- NOTE | 2019-07-31 14:59 | PCM.PN ---
- General Info Date of Service: 07/31/19 Admission Dx/Problem (Free Text): 1. UTI with suspected sepsis 2. IDDM Subjective Update: Patient feeling much better today. Only complaint is back is sore from laying in bed. Eating and drinking well. Functional Status: Reports: Pain Controlled, Tolerating Diet, Ambulating, Urinating. Denies: New Symptoms - Review of Systems General: Reports: Fatigue. Denies: Fever, Malaise, Chills, Night Sweats HEENT: Reports: Glasses Pulmonary: Reports: No Symptoms Cardiovascular: Reports: No Symptoms Gastrointestinal: Reports: No Symptoms Musculoskeletal: Reports: Back Pain (mild back discomfort) Neurological: Reports: No Symptoms Psychiatric: Reports: No Symptoms - Patient Data Vitals - Most Recent: Last Vital Signs Temp 36.4 C 07/31/19 12:00 Pulse 69 07/31/19 12:00 Resp 20 07/31/19 12:00 BP 138/61 07/31/19 12:00 Pulse Ox 97 07/31/19 12:00 Weight - Most Recent: 88.9 kg I&O - Last 24 Hours: Intake & Output 07/30/19 07/31/19 07/31/19 22:59 06:59 14:59 Intake Total 2140 1060 1335 Output Total 300 200 200 Balance 8537 597 7861 Lab Results Last 24 Hours: Laboratory Results - last 24 hr 07/30/19 07/30/19 07/30/19 Range/Units 16:53 17:30 17:30 WBC (4.0-10.2) K/uL RBC (3.77-5.09) M/uL Hgb (11.7-15.5) g/dL Hct (34.0-46.0) % MCV (84.0-98.0) fL MCH (28.2-33.3) pg MCHC (31.7-36.0) g/dL RDW (11.2-14.1) % Plt Count (150-350) K/uL Neut % (Auto) (45.0-80.0) % Lymph % (Auto) (10.0-50.0) % [place] % (Auto) (2.0-14.0) % Eos % (Auto) (0.0-5.0) % Baso % (Auto) (0.0-2.0) % Neut # (Auto) (1.40-7.00) K/uL Lymph # (Auto) (0.50-3.50) K/uL [place] # (Auto) (0.00-1.00) K/uL Eos # (Auto) (0.00-0.50) K/uL Baso # (Auto) (0.00-0.20) K/uL PT (9.5-12.0) SEC INR APTT (21.0-31.3) SEC Sodium (136-145) mmol/L Potassium (3.5-5.1) mmol/L Chloride (98-107) mmol/L Carbon Dioxide (21.0-32.0) mmol/L BUN (7-18) mg/dL Creatinine (0.51-1.17) mg/dL Est Cr Clr Drug Dosing mL/min Estimated GFR (MDRD) mL/min Glucose (74-106) mg/dL POC Glucose 101 (65-110) mg/dl Lactic Acid 1.3 (0.4-2.0) mmol/L Calcium (8.5-10.1) mg/dL Phosphorus (2.6-4.7) mg/dL Magnesium (1.8-2.4) mg/dL Total Bilirubin (0.2-1.0) mg/dL AST (15-37) U/L ALT (12-78) U/L Alkaline Phosphatase (46-116) IU/L Creatine Kinase 387 H (26-308) U/L Creatine Kinase Index 0.5 (0.0-2.5) % CK-MB (CK-2) 1.90 (0.00-3.60) ng/mL Troponin I 0.004 (0.000-0.056) ng/mL C-Reactive Protein (<=0.9) mg/dL NT-Pro-B Natriuret Pep (0-125) pg/mL Total Protein (6.4-8.2) g/dL Albumin (3.4-5.0) g/dL 07/30/19 07/31/19 07/31/19 Range/Units 19:34 07:00 07:00 WBC 5.3 (4.0-10.2) K/uL RBC 4.06 (3.77-5.09) M/uL Hgb 11.3 L D (11.7-15.5) g/dL Hct 34.7 (34.0-46.0) % MCV 85.5 (84.0-98.0) fL MCH 27.8 L (28.2-33.3) pg MCHC 32.6 (31.7-36.0) g/dL RDW 16.4 H (11.2-14.1) % Plt Count 111 L (150-350) K/uL Neut % (Auto) 65.9 (45.0-80.0) % Lymph % (Auto) 23.0 (10.0-50.0) % [place] % (Auto) 9.9 (2.0-14.0) % Eos % (Auto) 1.0 (0.0-5.0) % Baso % (Auto) 0.2 (0.0-2.0) % Neut # (Auto) 3.47 (1.40-7.00) K/uL Lymph # (Auto) 1.21 (0.50-3.50) K/uL [place] # (Auto) 0.52 (0.00-1.00) K/uL Eos # (Auto) 0.05 (0.00-0.50) K/uL Baso # (Auto) 0.01 (0.00-0.20) K/uL PT 11.1 (9.5-12.0) SEC INR 1.0 APTT 36.5 H (21.0-31.3) SEC Sodium (136-145) mmol/L Potassium (3.5-5.1) mmol/L Chloride (98-107) mmol/L Carbon Dioxide (21.0-32.0) mmol/L BUN (7-18) mg/dL Creatinine (0.51-1.17) mg/dL Est Cr Clr Drug Dosing mL/min Estimated GFR (MDRD) mL/min Glucose (74-106) mg/dL POC Glucose 157 H (65-110) mg/dl Lactic Acid (0.4-2.0) mmol/L Calcium (8.5-10.1) mg/dL Phosphorus (2.6-4.7) mg/dL Magnesium (1.8-2.4) mg/dL Total Bilirubin (0.2-1.0) mg/dL AST (15-37) U/L ALT (12-78) U/L Alkaline Phosphatase (46-116) IU/L Creatine Kinase (26-308) U/L Creatine Kinase Index (0.0-2.5) % CK-MB (CK-2) (0.00-3.60) ng/mL Troponin I (0.000-0.056) ng/mL C-Reactive Protein (<=0.9) mg/dL NT-Pro-B Natriuret Pep (0-125) pg/mL Total Protein (6.4-8.2) g/dL Albumin (3.4-5.0) g/dL 07/31/19 07/31/19 07/31/19 Range/Units 07:00 07:00 11:47 WBC (4.0-10.2) K/uL RBC (3.77-5.09) M/uL Hgb (11.7-15.5) g/dL Hct (34.0-46.0) % MCV (84.0-98.0) fL MCH (28.2-33.3) pg MCHC (31.7-36.0) g/dL RDW (11.2-14.1) % Plt Count (150-350) K/uL Neut % (Auto) (45.0-80.0) % Lymph % (Auto) (10.0-50.0) % [place] % (Auto) (2.0-14.0) % Eos % (Auto) (0.0-5.0) % Baso % (Auto) (0.0-2.0) % Neut # (Auto) (1.40-7.00) K/uL Lymph # (Auto) (0.50-3.50) K/uL [place] # (Auto) (0.00-1.00) K/uL Eos # (Auto) (0.00-0.50) K/uL Baso # (Auto) (0.00-0.20) K/uL PT (9.5-12.0) SEC INR APTT (21.0-31.3) SEC Sodium 140 (136-145) mmol/L Potassium 4.4 (3.5-5.1) mmol/L Chloride 106 (98-107) mmol/L Carbon Dioxide 25.4 (21.0-32.0) mmol/L BUN 23 H (7-18) mg/dL Creatinine 1.35 H (0.51-1.17) mg/dL Est Cr Clr Drug Dosing 34.31 mL/min Estimated GFR (MDRD) 40 mL/min Glucose 115 H (74-106) mg/dL POC Glucose 248 H (65-110) mg/dl Lactic Acid 0.8 (0.4-2.0) mmol/L Calcium 8.3 L (8.5-10.1) mg/dL Phosphorus 2.7 (2.6-4.7) mg/dL Magnesium 2.0 (1.8-2.4) mg/dL Total Bilirubin 0.5 (0.2-1.0) mg/dL AST 41 H (15-37) U/L ALT 39 (12-78) U/L Alkaline Phosphatase 67 (46-116) IU/L Creatine Kinase 331 H (26-308) U/L Creatine Kinase Index 0.5 (0.0-2.5) % CK-MB (CK-2) 1.70 (0.00-3.60) ng/mL Troponin I 0.000 (0.000-0.056) ng/mL C-Reactive Protein 13.9 H (<=0.9) mg/dL NT-Pro-B Natriuret Pep 1002 H (0-125) pg/mL Total Protein 6.2 L (6.4-8.2) g/dL Albumin 2.5 L (3.4-5.0) g/dL [place] Results Last 24 Hours: Microbiology 07/30/19 12:11 Aerobic Blood Culture - Preliminary Blood - Venous - Lab Draw NO GROWTH AFTER 1 DAY Anaerobic Blood Culture - Preliminary NO GROWTH AFTER 1 DAY 07/30/19 09:40 Aerobic Blood Culture - Preliminary Blood - Venous NO GROWTH AFTER 1 DAY Anaerobic Blood Culture - Preliminary NO GROWTH AFTER 1 DAY 07/29/19 21:40 Aerobic Blood Culture - Preliminary Blood - Venous NO GROWTH AFTER 1 DAY Anaerobic Blood Culture - Preliminary NO GROWTH AFTER 1 DAY 07/29/19 22:45 Urine Culture - Final Urine, Bladder NO GROWTH AFTER 2 DAYS Med Orders - Current: Current Medications Acetaminophen (Tylenol) 650 mg PO Q4H PRN PRN Reason: Pain (Mild 1-3)/fever Last Admin: 07/31/19 03:32 Dose: 650 mg Aspirin (Aspirin) 81 mg PO DAILY [facility] Last Admin: 07/31/19 08:53 Dose: 81 mg Enoxaparin Sodium (Lovenox) 40 mg SUBCUT DAILY [facility] Last Admin: 07/31/19 08:53 Dose: 40 mg Vancomycin HCl 1.25 gm/ Sodium (Chloride) 250 mls @ 135 mls/hr IV Q24H [facility] Last Admin: 07/31/19 10:37 Dose: 135 mls/hr Ceftriaxone Sodium 1 gm/ (Sodium Chloride) 100 mls @ 200 mls/hr IV Q12H [facility] Last Admin: 07/31/19 08:54 Dose: 200 mls/hr Sodium Chloride (Normal Saline) 1,000 mls @ 80 mls/hr IV ASDIRECTED [facility] Last Admin: 07/31/19 08:53 Dose: 80 mls/hr Insulin Human Regular (Humulin R) 0 unit SUBCUT BIDAC [facility]; Protocol Last Admin: 07/31/19 08:58 Dose: Not Given Ondansetron HCl (Zofran) 4 mg IVPUSH Q6H PRN PRN Reason: Nausea/Vomiting Sodium Chloride (Saline Flush) 10 ml FLUSH ASDIRECTED PRN PRN Reason: Keep Vein Open Last Admin: 07/30/19 07:32 Dose: 10 ml Valproic Acid (Depakene) 250 mg PO BID@08,12 [facility] Last Admin: 07/31/19 11:58 Dose: 250 mg Valproic Acid (Depakene) 500 mg PO BEDTIME [facility] Last Admin: 07/30/19 19:28 Dose: 500 mg Vancomycin HCl (Pharmacy To Dose - Vancomycin) 1 dose .XX ASDIRECTED [facility] Discontinued Medications Acetaminophen (Tylenol Extra Strength) 1,000 mg PO ONETIME ONE Stop: 07/29/19 21:53 Last Admin: 07/29/19 21:58 Dose: 1,000 mg Ceftriaxone Sodium (Rocephin) 1 gm IM ONETIME ONE Stop: 07/29/19 21:53 Last Admin: 07/29/19 23:08 Dose: Not Given Ceftriaxone Sodium 1 gm/ (Sodium Chloride) 100 mls @ 200 mls/hr IV ONETIME ONE Stop: 07/29/19 22:27 Last Admin: 07/29/19 22:25 Dose: 200 mls/hr Sodium Chloride (Normal Saline) 1,000 mls @ 500 mls/hr IV .BOLUS ONE Stop: 07/29/19 23:58 Last Admin: 07/29/19 22:21 Dose: 500 mls/hr Magnesium Sulfate/Dextrose 1 (gm/ Premix) 100 mls @ 100 mls/hr IV ONETIME ONE Stop: 07/29/19 23:52 Last Admin: 07/29/19 23:19 Dose: 100 mls/hr Magnesium Sulfate/Dextrose 1 (gm/ Premix) 100 mls @ 100 mls/hr IV ONETIME ONE Stop: 07/30/19 02:59 Last Admin: 07/30/19 02:20 Dose: 100 mls/hr Magnesium Sulfate/Dextrose 1 (gm/ Premix) 100 mls @ 100 mls/hr IV ONETIME ONE Stop: 07/30/19 04:59 Last Admin: 07/30/19 04:07 Dose: 100 mls/hr Ceftriaxone Sodium 1 gm/ (Sodium Chloride) 100 mls @ 200 mls/hr IV Q24H [facility] Last Admin: 07/30/19 07:32 Dose: 200 mls/hr Sodium Chloride (Normal Saline) 1,000 mls @ 999 mls/hr IV .BOLUS ONE Stop: 07/30/19 09:14 Last Admin: 07/30/19 08:31 Dose: 999 mls/hr Sodium Chloride (Normal Saline) 1,000 mls @ 150 mls/hr IV ASDIRECTED [facility] Last Admin: 07/30/19 09:35 Dose: 150 mls/hr Ketorolac Tromethamine (Toradol) 15 mg IVPUSH ONETIME ONE Stop: 07/30/19 09:01 Last Admin: 07/30/19 10:11 Dose: 15 mg Pneumococcal Polyvalent Vaccine (Pneumovax 23) 0.5 ml IM .ONCE ONE Stop: 07/29/19 23:03 - Exam Quality Assessment: DVT Prophylaxis General: Alert, Oriented, Cooperative, No Acute Distress HEENT: Pupils Equal, Pupils Reactive, EOMI, Mucous Membr. Moist/[place] Neck: Supple Lungs: Clear to Auscultation, Normal Respiratory Effort Cardiovascular: Regular Rate, Regular Rhythm GI/Abdominal Exam: Normal Bowel Sounds, Soft, Non-Tender, No Distention (Female) Exam: Deferred Back Exam: No: CVA Tenderness (L), CVA Tenderness (R), Muscle Spasm, Paraspinal Tenderness, Vertebral Tenderness Extremities: Non-Tender, Normal Capillary Refill Peripheral Pulses: 2+: Radial (L), Radial (R) Skin: Warm, Dry Neurological: No New Focal Deficit Psy/Mental Status: Alert, Normal Affect, Normal Mood - Problem List & Annotations (1) UTI (urinary tract infection), bacterial SNOMED Code(s): 641080466 Code(s): N39.0 - URINARY TRACT INFECTION, SITE NOT SPECIFIED; A49.9 - BACTERIAL INFECTION, UNSPECIFIED Status: Acute Priority: High Current Visit: Yes Onset Date: ~12/13/18 Annotation/Comment:: Suspect sepsis/ urosepsis with progressive lactic acid elevation despite IV hydration. Lactic acid level improved. Afebrile. Blood and urine cultures currently no growth. Call placed to [facility] to see if they obtained culture prior to initiating oral antibiotics and this was not done as it was "not indicated" at the time per clinic. Continue current antibiotic regimen. (2) Asthma SNOMED Code(s): 453259292 Code(s): J45.909 - UNSPECIFIED ASTHMA, UNCOMPLICATED Status: Chronic Priority: Medium Current Visit: Yes Qualifiers: Asthma severity: mild Asthma persistence: intermittent Asthma complication type: uncomplicated Qualified Code(s): J45.20 - Mild intermittent asthma, uncomplicated Annotation/Comment:: Currently stable per patient with no recent cough or bronchitic type symptoms. No chest x-ray results above. (3) Diabetes SNOMED Code(s): 95288410 Code(s): E11.9 - TYPE 2 DIABETES MELLITUS WITHOUT COMPLICATIONS Status: Chronic Priority: Medium Current Visit: No Qualifiers: Diabetes mellitus type: type 2 Diabetes mellitus residential insulin use: with terminal system operator use Diabetes mellitus complication status: with hyperglycemia Qualified Code(s): E11.65 - Type 2 diabetes mellitus with hyperglycemia; Z79.4 - assisted (current) use of insulin Annotation/Comment:: Insulin dependent. Very poor control. Patient historically does not monitor own blood glucose levels at home and makes poor dietary choices. Updated A1C ordered. (4) Epilepsy SNOMED Code(s): 85764183 Code(s): G40.909 - EPILEPSY, UNSP, NOT INTRACTABLE, WITHOUT STATUS EPILEPTICUS Status: Chronic Priority: Medium Current Visit: Yes Qualifiers: Epilepsy type: unspecified Intractability: not intractable Status epilepticus: without status epilepticus Qualified Code(s): G40.909 - Epilepsy , unspecified, not intractable, without status epilepticus Annotation/Comment:: Stable with current medical therapy with no seizure activity to this point. Continue to observe closely, including neurological checks as above. (5) Hyperlipidemia SNOMED Code(s): 28258762 Code(s): E78.5 - HYPERLIPIDEMIA, UNSPECIFIED Status: Chronic Priority: Medium Current Visit: Yes Qualifiers: Hyperlipidemia type: unspecified Qualified Code(s): E78.5 - Hyperlipidemia , unspecified Annotation/Comment:: Not currently under therapy. Note current obesity and IDDM. Continue to observe closely by her by primary provider. (6) Elevated lactic acid level SNOMED Code(s): 6819971 Code(s): R79.89 - OTHER SPECIFIED ABNORMAL FINDINGS OF BLOOD CHEMISTRY Status: Acute Priority: High Current Visit: Yes Onset Date: 07/29/19 Annotation/Comment:: Normalized (7) Confusion SNOMED Code(s): 842615699 Code(s): R41.0 - DISORIENTATION, UNSPECIFIED Status: Acute Priority: High Current Visit: Yes Onset Date: 07/30/19 Annotation/Comment:: Baseline mental status not certain at this time with probable chronic mental deficit per emergency room note. Confusion observed in ER at time of admission improved. (8) Hyperkalemia SNOMED Code(s): 47415738 Code(s): E87.5 - HYPERKALEMIA Status: Acute Priority: Medium Current Visit: Yes Onset Date: 07/30/19 Annotation/Comment:: Normal level today (9) Hypomagnesemia SNOMED Code(s): 476673687 Code(s): E83.42 - HYPOMAGNESEMIA Status: Acute Priority: Medium Current Visit: Yes Onset Date: 07/30/19 Annotation/Comment:: Normal at this time (10) Sepsis SNOMED Code(s): 65594283 Code(s): A41.9 - SEPSIS, UNSPECIFIED ORGANISM Status: Acute Priority: High Current Visit: Yes Onset Date: 07/30/19 Qualifiers: Sepsis type: sepsis due to unspecified organism Sepsis acute organ dysfunction status: without acute organ dysfunction Qualified Code(s): A41.9 - Sepsis, unspecified organism Annotation/Comment:: Suspect urosepsis as below. Patient has been resistant to previously initiated IV Rocephin therapy, which will be continued. IV vancomycin therapy added with dosing recommendations provided by pharmacy. Note the patient is allergic to penicillins. Sepsis bundle was not initiated in the emergency room, but initiated yesterday morning. A blood culture 1 was collected yesterday, however not ordered. Blood cultures 2 yesterday despite previous IV Rocephin therapy, although these were collected prior to initiation of IV vancomycin as above. Afebrile today. WBC normalized today. No chest pain or anginal type symptoms despite some lateral wall ischemia by yesterday's EKG. Serial cardiac labs negative. Note current subcutaneous Lovenox at DVT prophylaxis dose. (11) IDDM (insulin dependent diabetes mellitus) SNOMED Code(s): 85487045 Code(s): E11.9 - TYPE 2 DIABETES MELLITUS WITHOUT COMPLICATIONS; Z79.4 - RESIDENTIAL (CURRENT) USE OF INSULIN Status: Chronic Priority: Medium Current Visit: Yes Annotation/Comment:: Accu-Chek stable at this time with continuation of sliding scale. (12) Palliative care patient SNOMED Code(s): 264625344 Code(s): Z51.5 - ENCOUNTER FOR PALLIATIVE CARE Status: Chronic Priority: High Current Visit: Yes Annotation/Comment:: Note no code/palliative care per admitting physician. She may still benefit from hospital transfer, however. (13) Renal insufficiency SNOMED Code(s): 588909725, 572925006 Code(s): N28.9 - DISORDER OF KIDNEY AND URETER, UNSPECIFIED Status: Chronic Current Visit: Yes Onset Date: ~07/29/19 Annotation/Comment:: Probable diabetic nephropathy. Improved today. Continue IV fluids for now with close observation of her renal status especially in light of additional IV vancomycin therapy. - Problem List Review Problem List Initiated/Reviewed/Updated: Yes - My Orders Last 24 Hours: My Active Orders 07/30/19 20:00 Valproic Acid [Depakene] 500 mg PO BEDTIME - Assessment Assessment:: As above - Plan Plan:: As above. Patient will need an additional 1-2 days of hospitalization receiving IV antibiotics. to reassume care of patient in the morning.
[2019-07-31] MEDS ORDERED: cefTRIAXone 1 GM in Sodium Chloride 0.9% 100 ML IV ONE (20:39)
[2019-08-01] MEDS: Sodium Chloride 0.9% 1,000 ML IV SCH (01:48)
[2019-08-01] MEDS: Acetaminophen 325 MG Tab PO PRN (05:04)
[2019-08-01] MEDS: Insulin Regular, Human 100 Units/ML 3 ML Vial SUBCUT SCH ×2 (08:37→17:19)
[2019-08-01] MEDS: Valproic Acid 250 MG Cap PO SCH ×3 (08:37→19:19)
[2019-08-01] MEDS: Enoxaparin 40 MG/0.4 ML Syringe SUBCUT SCH (08:37)
[2019-08-01] MEDS: Aspirin 81 MG Tab.Chew PO SCH (08:37)
--- NOTE | 2019-08-01 08:41 | PCM.PN ---
- General Info Date of Service: 08/01/19 Admission Dx/Problem (Free Text): 1. UTI with suspected sepsis 2. IDDM Functional Status: Reports: Pain Controlled, Tolerating Diet, Ambulating, Urinating. Denies: New Symptoms, Incentive Spirometry Pain Score: 0 (Headache the patient unable to rate her pain) - Review of Systems General: Reports: No Symptoms. Denies: Fever, Weakness, Fatigue, Malaise, Chills, Night Sweats, Appetite HEENT: Reports: Headaches (Stable chronic intermittent). Denies: Ear Pain, Eye Pain, Post Nasal Drip, Sinus Congestion, Sore Throat, Rhinitis, Visual Changes Pulmonary: Reports: No Symptoms. Denies: Shortness of Breath, Pleuritic Chest Pain, Cough, Sputum, Hemoptysis, Wheezing Cardiovascular: Reports: No Symptoms, Edema (Stable dependent). Denies: Chest Pain, Palpitations, Dyspnea on Exertion, Orthopnea, Lightheadedness Gastrointestinal: Reports: No Symptoms, Other (Normal bowel movement yesterday by patient history). Denies: Abdominal Pain, Constipation, Decreased Appetite, Diarrhea (Despite aggressive IV antibiotic therapy), Difficulty Swallowing, Flatus, Hematochezia, Melena, Nausea Genitourinary: Reports: No Symptoms. Denies: Dysuria, Frequency, Burning, Pain , Urgency, Incontinence, Hematuria, Retention, Flank Pain Musculoskeletal: Reports: Back Pain (Mild occasional from lying in bed). Denies : Neck Pain, Shoulder Pain, Arm Pain, Hand Pain, Leg Pain, Foot Pain, Joint Pain , Joint Swelling Skin: Reports: No Symptoms. Denies: Diaphoresis, Bruising, Pruritis, Rash Neurological: Reports: Headache. Denies: Confusion (Returned to baseline), Dizziness (As above), Numbness, Paresthesia, Tingling, Weakness Psychiatric: Denies: Confusion, Depression, Anxiety, Agitation, Cravings, Hallucinations - Patient Data Vitals - Most Recent: Last Vital Signs Temp 36.9 C 07/31/19 19:06 Pulse 70 07/31/19 19:06 Resp 17 07/31/19 19:06 BP 143/65 H 07/31/19 19:06 Pulse Ox 96 07/31/19 19:06 Weight - Most Recent: 88.9 kg I&O - Last 24 Hours: Intake & Output 07/31/19 08/01/19 08/01/19 22:59 06:59 14:59 Intake Total 1253 514 Output Total 800 850 Balance 453 -336 Imaging Impressions - Last 24 Hours: None Lab Results Last 24 Hours: Laboratory Results - last 24 hr 07/31/19 07/31/19 07/31/19 Range/Units 11:47 17:11 20:33 POC Glucose 248 H 174 H 221 H (65-110) mg/dl 08/01/19 Range/Units 07:38 POC Glucose 120 H (65-110) mg/dl Laboratory Tests 07/29/19 07/29/19 07/29/19 Range/Units 21:40 21:40 21:40 WBC 10.8 H (4.0-10.2) K/uL RBC 5.40 H (3.77-5.09) M/uL Hgb 15.0 D (11.7-15.5) g/dL Hct 45.3 (34.0-46.0) % MCV 83.9 L (84.0-98.0) fL MCH 27.8 L (28.2-33.3) pg MCHC 33.1 (31.7-36.0) g/dL RDW 15.8 H (11.2-14.1) % Plt Count 169 (150-350) K/uL Neut % (Auto) 88.6 H (45.0-80.0) % Lymph % (Auto) 9.3 L (10.0-50.0) % [place] % (Auto) 1.9 L (2.0-14.0) % Eos % (Auto) 0.1 (0.0-5.0) % Baso % (Auto) 0.1 (0.0-2.0) % Neut # (Auto) 9.53 H (1.40-7.00) K/uL Lymph # (Auto) 1.00 (0.50-3.50) K/uL [place] # (Auto) 0.20 (0.00-1.00) K/uL Eos # (Auto) 0.01 (0.00-0.50) K/uL Baso # (Auto) 0.01 (0.00-0.20) K/uL PT (9.5-12.0) SEC INR APTT (21.0-31.3) SEC Sodium 139 (136-145) mmol/L Potassium 3.9 (3.5-5.1) mmol/L Chloride 98 (98-107) mmol/L Carbon Dioxide 28.5 (21.0-32.0) mmol/L BUN 18 (7-18) mg/dL Creatinine 1.43 H (0.51-1.17) mg/dL Est Cr Clr Drug Dosing 32.67 mL/min Estimated GFR (MDRD) 37 mL/min Glucose 144 H (74-106) mg/dL POC Glucose (65-110) mg/dl Hemoglobin A1c (4.3-5.7) % Lactic Acid 3.5 H (0.4-2.0) mmol/L Calcium 9.9 (8.5-10.1) mg/dL Phosphorus (2.6-4.7) mg/dL Magnesium (1.8-2.4) mg/dL Total Bilirubin 0.5 (0.2-1.0) mg/dL AST 24 (15-37) U/L ALT 33 (12-78) U/L Alkaline Phosphatase 101 (46-116) IU/L Creatine Kinase (26-308) U/L Creatine Kinase Index (0.0-2.5) % CK-MB (CK-2) (0.00-3.60) ng/mL Troponin I (0.000-0.056) ng/mL C-Reactive Protein (<=0.9) mg/dL NT-Pro-B Natriuret Pep (0-125) pg/mL Total Protein 8.4 H (6.4-8.2) g/dL Albumin 4.0 (3.4-5.0) g/dL Specimen Type Urine Color Urine Appearance Urine pH (5.0-9.0) Ur Specific [place] (1.005-1.030) Urine Protein (NEGATIVE) mg/dL Urine Glucose (UA) (NEGATIVE) mg/dL Urine Ketones (NEGATIVE) mg/dL Urine Occult Blood (NEGATIVE) Urine Nitrite (NEGATIVE) Urine Bilirubin (NEGATIVE) Urine Urobilinogen (0.2-1.0) E.U./dL Ur Leukocyte Esterase (NEGATIVE) Urine RBC /HPF Urine WBC /HPF Ur Epithelial Cells /LPF Amorphous Sediment (0/HPF) /HPF Urine Bacteria (NONE TO FEW) /HPF Hyaline Casts (NEGATIVE) /LPF Granular Casts (NEGATIVE) /LPF Urine Other Vancomycin Trough (10-20) ug/mL 07/29/19 07/29/19 07/29/19 Range/Units 21:40 22:40 22:45 WBC (4.0-10.2) K/uL RBC (3.77-5.09) M/uL Hgb (11.7-15.5) g/dL Hct (34.0-46.0) % MCV (84.0-98.0) fL MCH (28.2-33.3) pg MCHC (31.7-36.0) g/dL RDW (11.2-14.1) % Plt Count (150-350) K/uL Neut % (Auto) (45.0-80.0) % Lymph % (Auto) (10.0-50.0) % [place] % (Auto) (2.0-14.0) % Eos % (Auto) (0.0-5.0) % Baso % (Auto) (0.0-2.0) % Neut # (Auto) (1.40-7.00) K/uL Lymph # (Auto) (0.50-3.50) K/uL [place] # (Auto) (0.00-1.00) K/uL Eos # (Auto) (0.00-0.50) K/uL Baso # (Auto) (0.00-0.20) K/uL PT (9.5-12.0) SEC INR APTT (21.0-31.3) SEC Sodium (136-145) mmol/L Potassium (3.5-5.1) mmol/L Chloride (98-107) mmol/L Carbon Dioxide (21.0-32.0) mmol/L BUN (7-18) mg/dL Creatinine (0.51-1.17) mg/dL Est Cr Clr Drug Dosing mL/min Estimated GFR (MDRD) mL/min Glucose (74-106) mg/dL POC Glucose (65-110) mg/dl Hemoglobin A1c 8.2 H (4.3-5.7) % Lactic Acid (0.4-2.0) mmol/L Calcium (8.5-10.1) mg/dL Phosphorus (2.6-4.7) mg/dL Magnesium 1.3 L (1.8-2.4) mg/dL Total Bilirubin (0.2-1.0) mg/dL AST (15-37) U/L ALT (12-78) U/L Alkaline Phosphatase (46-116) IU/L Creatine Kinase (26-308) U/L Creatine Kinase Index (0.0-2.5) % CK-MB (CK-2) (0.00-3.60) ng/mL Troponin I (0.000-0.056) ng/mL C-Reactive Protein (<=0.9) mg/dL NT-Pro-B Natriuret Pep (0-125) pg/mL Total Protein (6.4-8.2) g/dL Albumin (3.4-5.0) g/dL Specimen Type Urinvoid Urine Color Yellow Urine Appearance Slightly cloudy Urine pH 5.0 (5.0-9.0) Ur Specific [place] 1.020 (1.005-1.030) Urine Protein 100 H (NEGATIVE) mg/dL Urine Glucose (UA) Negative (NEGATIVE) mg/dL Urine Ketones Trace H (NEGATIVE) mg/dL Urine Occult Blood Trace-intact H (NEGATIVE) Urine Nitrite Negative (NEGATIVE) Urine Bilirubin Negative (NEGATIVE) Urine Urobilinogen 0.2 (0.2-1.0) E.U./dL Ur Leukocyte Esterase Negative (NEGATIVE) Urine RBC 5-10 H /HPF Urine WBC 5-10 H /HPF Ur Epithelial Cells Moderate H /LPF Amorphous Sediment Moderate H (0/HPF) /HPF Urine Bacteria Moderate H (NONE TO FEW) /HPF Hyaline Casts Few H (NEGATIVE) /LPF Granular Casts Few H (NEGATIVE) /LPF Urine Other See note H Vancomycin Trough (10-20) ug/mL 07/30/19 07/30/19 07/30/19 Range/Units 07:20 07:20 07:20 WBC 10.7 H (4.0-10.2) K/uL RBC 5.19 H (3.77-5.09) M/uL Hgb 14.3 (11.7-15.5) g/dL Hct 43.9 (34.0-46.0) % MCV 84.6 (84.0-98.0) fL MCH 27.6 L (28.2-33.3) pg MCHC 32.6 (31.7-36.0) g/dL RDW 16.1 H (11.2-14.1) % Plt Count 151 (150-350) K/uL Neut % (Auto) 93.1 H (45.0-80.0) % Lymph % (Auto) 2.7 L (10.0-50.0) % [place] % (Auto) 4.1 (2.0-14.0) % Eos % (Auto) 0.1 (0.0-5.0) % Baso % (Auto) 0.0 (0.0-2.0) % Neut # (Auto) 9.94 H (1.40-7.00) K/uL Lymph # (Auto) 0.29 L (0.50-3.50) K/uL [place] # (Auto) 0.44 (0.00-1.00) K/uL Eos # (Auto) 0.01 (0.00-0.50) K/uL Baso # (Auto) 0.00 (0.00-0.20) K/uL PT 10.7 (9.5-12.0) SEC INR 1.0 APTT (21.0-31.3) SEC Sodium (136-145) mmol/L Potassium (3.5-5.1) mmol/L Chloride (98-107) mmol/L Carbon Dioxide (21.0-32.0) mmol/L BUN (7-18) mg/dL Creatinine (0.51-1.17) mg/dL Est Cr Clr Drug Dosing mL/min Estimated GFR (MDRD) mL/min Glucose (74-106) mg/dL POC Glucose (65-110) mg/dl Hemoglobin A1c (4.3-5.7) % Lactic Acid 4.7 H (0.4-2.0) mmol/L Calcium (8.5-10.1) mg/dL Phosphorus (2.6-4.7) mg/dL Magnesium (1.8-2.4) mg/dL Total Bilirubin (0.2-1.0) mg/dL AST (15-37) U/L ALT (12-78) U/L Alkaline Phosphatase (46-116) IU/L Creatine Kinase (26-308) U/L Creatine Kinase Index (0.0-2.5) % CK-MB (CK-2) (0.00-3.60) ng/mL Troponin I (0.000-0.056) ng/mL C-Reactive Protein (<=0.9) mg/dL NT-Pro-B Natriuret Pep (0-125) pg/mL Total Protein (6.4-8.2) g/dL Albumin (3.4-5.0) g/dL Specimen Type Urine Color Urine Appearance Urine pH (5.0-9.0) Ur Specific [place] (1.005-1.030) Urine Protein (NEGATIVE) mg/dL Urine Glucose (UA) (NEGATIVE) mg/dL Urine Ketones (NEGATIVE) mg/dL Urine Occult Blood (NEGATIVE) Urine Nitrite (NEGATIVE) Urine Bilirubin (NEGATIVE) Urine Urobilinogen (0.2-1.0) E.U./dL Ur Leukocyte Esterase (NEGATIVE) Urine RBC /HPF Urine WBC /HPF Ur Epithelial Cells /LPF Amorphous Sediment (0/HPF) /HPF Urine Bacteria (NONE TO FEW) /HPF Hyaline Casts (NEGATIVE) /LPF Granular Casts (NEGATIVE) /LPF Urine Other Vancomycin Trough (10-20) ug/mL 07/30/19 07/30/19 07/30/19 Range/Units 07:20 07:21 11:08 WBC (4.0-10.2) K/uL RBC (3.77-5.09) M/uL Hgb (11.7-15.5) g/dL Hct (34.0-46.0) % MCV (84.0-98.0) fL MCH (28.2-33.3) pg MCHC (31.7-36.0) g/dL RDW (11.2-14.1) % Plt Count (150-350) K/uL Neut % (Auto) (45.0-80.0) % Lymph % (Auto) (10.0-50.0) % [place] % (Auto) (2.0-14.0) % Eos % (Auto) (0.0-5.0) % Baso % (Auto) (0.0-2.0) % Neut # (Auto) (1.40-7.00) K/uL Lymph # (Auto) (0.50-3.50) K/uL [place] # (Auto) (0.00-1.00) K/uL Eos # (Auto) (0.00-0.50) K/uL Baso # (Auto) (0.00-0.20) K/uL PT (9.5-12.0) SEC INR APTT (21.0-31.3) SEC Sodium 137 (136-145) mmol/L Potassium 5.2 H (3.5-5.1) mmol/L Chloride 100 (98-107) mmol/L Carbon Dioxide 27.0 (21.0-32.0) mmol/L BUN 18 (7-18) mg/dL Creatinine 1.50 H (0.51-1.17) mg/dL Est Cr Clr Drug Dosing 31.15 mL/min Estimated GFR (MDRD) 35 mL/min Glucose 157 H (74-106) mg/dL POC Glucose 154 H 130 H (65-110) mg/dl Hemoglobin A1c (4.3-5.7) % Lactic Acid (0.4-2.0) mmol/L Calcium 9.3 (8.5-10.1) mg/dL Phosphorus (2.6-4.7) mg/dL Magnesium 2.1 (1.8-2.4) mg/dL Total Bilirubin (0.2-1.0) mg/dL AST (15-37) U/L ALT (12-78) U/L Alkaline Phosphatase (46-116) IU/L Creatine Kinase (26-308) U/L Creatine Kinase Index (0.0-2.5) % CK-MB (CK-2) (0.00-3.60) ng/mL Troponin I (0.000-0.056) ng/mL C-Reactive Protein (<=0.9) mg/dL NT-Pro-B Natriuret Pep (0-125) pg/mL Total Protein (6.4-8.2) g/dL Albumin (3.4-5.0) g/dL Specimen Type Urine Color Urine Appearance Urine pH (5.0-9.0) Ur Specific [place] (1.005-1.030) Urine Protein (NEGATIVE) mg/dL Urine Glucose (UA) (NEGATIVE) mg/dL Urine Ketones (NEGATIVE) mg/dL Urine Occult Blood (NEGATIVE) Urine Nitrite (NEGATIVE) Urine Bilirubin (NEGATIVE) Urine Urobilinogen (0.2-1.0) E.U./dL Ur Leukocyte Esterase (NEGATIVE) Urine RBC /HPF Urine WBC /HPF Ur Epithelial Cells /LPF Amorphous Sediment (0/HPF) /HPF Urine Bacteria (NONE TO FEW) /HPF Hyaline Casts (NEGATIVE) /LPF Granular Casts (NEGATIVE) /LPF Urine Other Vancomycin Trough (10-20) ug/mL 07/30/19 07/30/19 07/30/19 Range/Units 12:11 12:11 16:53 WBC (4.0-10.2) K/uL RBC (3.77-5.09) M/uL Hgb (11.7-15.5) g/dL Hct (34.0-46.0) % MCV (84.0-98.0) fL MCH (28.2-33.3) pg MCHC (31.7-36.0) g/dL RDW (11.2-14.1) % Plt Count (150-350) K/uL Neut % (Auto) (45.0-80.0) % Lymph % (Auto) (10.0-50.0) % [place] % (Auto) (2.0-14.0) % Eos % (Auto) (0.0-5.0) % Baso % (Auto) (0.0-2.0) % Neut # (Auto) (1.40-7.00) K/uL Lymph # (Auto) (0.50-3.50) K/uL [place] # (Auto) (0.00-1.00) K/uL Eos # (Auto) (0.00-0.50) K/uL Baso # (Auto) (0.00-0.20) K/uL PT (9.5-12.0) SEC INR APTT (21.0-31.3) SEC Sodium 137 (136-145) mmol/L Potassium 4.7 (3.5-5.1) mmol/L Chloride 103 (98-107) mmol/L Carbon Dioxide 24.6 (21.0-32.0) mmol/L BUN 20 H (7-18) mg/dL Creatinine 1.43 H (0.51-1.17) mg/dL Est Cr Clr Drug Dosing 32.39 mL/min Estimated GFR (MDRD) 37 mL/min Glucose 148 H (74-106) mg/dL POC Glucose 101 (65-110) mg/dl Hemoglobin A1c (4.3-5.7) % Lactic Acid 2.5 H (0.4-2.0) mmol/L Calcium 8.2 L (8.5-10.1) mg/dL Phosphorus (2.6-4.7) mg/dL Magnesium (1.8-2.4) mg/dL Total Bilirubin (0.2-1.0) mg/dL AST (15-37) U/L ALT (12-78) U/L Alkaline Phosphatase (46-116) IU/L Creatine Kinase 412 H (26-308) U/L Creatine Kinase Index 0.5 (0.0-2.5) % CK-MB (CK-2) 2.20 (0.00-3.60) ng/mL Troponin I 0.006 (0.000-0.056) ng/mL C-Reactive Protein (<=0.9) mg/dL NT-Pro-B Natriuret Pep 1245 H (0-125) pg/mL Total Protein (6.4-8.2) g/dL Albumin (3.4-5.0) g/dL Specimen Type Urine Color Urine Appearance Urine pH (5.0-9.0) Ur Specific [place] (1.005-1.030) Urine Protein (NEGATIVE) mg/dL Urine Glucose (UA) (NEGATIVE) mg/dL Urine Ketones (NEGATIVE) mg/dL Urine Occult Blood (NEGATIVE) Urine Nitrite (NEGATIVE) Urine Bilirubin (NEGATIVE) Urine Urobilinogen (0.2-1.0) E.U./dL Ur Leukocyte Esterase (NEGATIVE) Urine RBC /HPF Urine WBC /HPF Ur Epithelial Cells /LPF Amorphous Sediment (0/HPF) /HPF Urine Bacteria (NONE TO FEW) /HPF Hyaline Casts (NEGATIVE) /LPF Granular Casts (NEGATIVE) /LPF Urine Other Vancomycin Trough (10-20) ug/mL 07/30/19 07/30/19 07/30/19 Range/Units 17:30 17:30 19:34 WBC (4.0-10.2) K/uL RBC (3.77-5.09) M/uL Hgb (11.7-15.5) g/dL Hct (34.0-46.0) % MCV (84.0-98.0) fL MCH (28.2-33.3) pg MCHC (31.7-36.0) g/dL RDW (11.2-14.1) % Plt Count (150-350) K/uL Neut % (Auto) (45.0-80.0) % Lymph % (Auto) (10.0-50.0) % [place] % (Auto) (2.0-14.0) % Eos % (Auto) (0.0-5.0) % Baso % (Auto) (0.0-2.0) % Neut # (Auto) (1.40-7.00) K/uL Lymph # (Auto) (0.50-3.50) K/uL [place] # (Auto) (0.00-1.00) K/uL Eos # (Auto) (0.00-0.50) K/uL Baso # (Auto) (0.00-0.20) K/uL PT (9.5-12.0) SEC INR APTT (21.0-31.3) SEC Sodium (136-145) mmol/L Potassium (3.5-5.1) mmol/L Chloride (98-107) mmol/L Carbon Dioxide (21.0-32.0) mmol/L BUN (7-18) mg/dL Creatinine (0.51-1.17) mg/dL Est Cr Clr Drug Dosing mL/min Estimated GFR (MDRD) mL/min Glucose (74-106) mg/dL POC Glucose 157 H (65-110) mg/dl Hemoglobin A1c (4.3-5.7) % Lactic Acid 1.3 (0.4-2.0) mmol/L Calcium (8.5-10.1) mg/dL Phosphorus (2.6-4.7) mg/dL Magnesium (1.8-2.4) mg/dL Total Bilirubin (0.2-1.0) mg/dL AST (15-37) U/L ALT (12-78) U/L Alkaline Phosphatase (46-116) IU/L Creatine Kinase 387 H (26-308) U/L Creatine Kinase Index 0.5 (0.0-2.5) % CK-MB (CK-2) 1.90 (0.00-3.60) ng/mL Troponin I 0.004 (0.000-0.056) ng/mL C-Reactive Protein (<=0.9) mg/dL NT-Pro-B Natriuret Pep (0-125) pg/mL Total Protein (6.4-8.2) g/dL Albumin (3.4-5.0) g/dL Specimen Type Urine Color Urine Appearance Urine pH (5.0-9.0) Ur Specific [place] (1.005-1.030) Urine Protein (NEGATIVE) mg/dL Urine Glucose (UA) (NEGATIVE) mg/dL Urine Ketones (NEGATIVE) mg/dL Urine Occult Blood (NEGATIVE) Urine Nitrite (NEGATIVE) Urine Bilirubin (NEGATIVE) Urine Urobilinogen (0.2-1.0) E.U./dL Ur Leukocyte Esterase (NEGATIVE) Urine RBC /HPF Urine WBC /HPF Ur Epithelial Cells /LPF Amorphous Sediment (0/HPF) /HPF Urine Bacteria (NONE TO FEW) /HPF Hyaline Casts (NEGATIVE) /LPF Granular Casts (NEGATIVE) /LPF Urine Other Vancomycin Trough (10-20) ug/mL 07/31/19 07/31/19 07/31/19 Range/Units 07:00 07:00 07:00 WBC 5.3 (4.0-10.2) K/uL RBC 4.06 (3.77-5.09) M/uL Hgb 11.3 L D (11.7-15.5) g/dL Hct 34.7 (34.0-46.0) % MCV 85.5 (84.0-98.0) fL MCH 27.8 L (28.2-33.3) pg MCHC 32.6 (31.7-36.0) g/dL RDW 16.4 H (11.2-14.1) % Plt Count 111 L (150-350) K/uL Neut % (Auto) 65.9 (45.0-80.0) % Lymph % (Auto) 23.0 (10.0-50.0) % [place] % (Auto) 9.9 (2.0-14.0) % Eos % (Auto) 1.0 (0.0-5.0) % Baso % (Auto) 0.2 (0.0-2.0) % Neut # (Auto) 3.47 (1.40-7.00) K/uL Lymph # (Auto) 1.21 (0.50-3.50) K/uL [place] # (Auto) 0.52 (0.00-1.00) K/uL Eos # (Auto) 0.05 (0.00-0.50) K/uL Baso # (Auto) 0.01 (0.00-0.20) K/uL PT 11.1 (9.5-12.0) SEC INR 1.0 APTT 36.5 H (21.0-31.3) SEC Sodium 140 (136-145) mmol/L Potassium 4.4 (3.5-5.1) mmol/L Chloride 106 (98-107) mmol/L Carbon Dioxide 25.4 (21.0-32.0) mmol/L BUN 23 H (7-18) mg/dL Creatinine 1.35 H (0.51-1.17) mg/dL Est Cr Clr Drug Dosing 34.31 mL/min Estimated GFR (MDRD) 40 mL/min Glucose 115 H (74-106) mg/dL POC Glucose (65-110) mg/dl Hemoglobin A1c (4.3-5.7) % Lactic Acid (0.4-2.0) mmol/L Calcium 8.3 L (8.5-10.1) mg/dL Phosphorus 2.7 (2.6-4.7) mg/dL Magnesium 2.0 (1.8-2.4) mg/dL Total Bilirubin 0.5 (0.2-1.0) mg/dL AST 41 H (15-37) U/L ALT 39 (12-78) U/L Alkaline Phosphatase 67 (46-116) IU/L Creatine Kinase 331 H (26-308) U/L Creatine Kinase Index 0.5 (0.0-2.5) % CK-MB (CK-2) 1.70 (0.00-3.60) ng/mL Troponin I 0.000 (0.000-0.056) ng/mL C-Reactive Protein 13.9 H (<=0.9) mg/dL NT-Pro-B Natriuret Pep 1002 H (0-125) pg/mL Total Protein 6.2 L (6.4-8.2) g/dL Albumin 2.5 L (3.4-5.0) g/dL Specimen Type Urine Color Urine Appearance Urine pH (5.0-9.0) Ur Specific [place] (1.005-1.030) Urine Protein (NEGATIVE) mg/dL Urine Glucose (UA) (NEGATIVE) mg/dL Urine Ketones (NEGATIVE) mg/dL Urine Occult Blood (NEGATIVE) Urine Nitrite (NEGATIVE) Urine Bilirubin (NEGATIVE) Urine Urobilinogen (0.2-1.0) E.U./dL Ur Leukocyte Esterase (NEGATIVE) Urine RBC /HPF Urine WBC /HPF Ur Epithelial Cells /LPF Amorphous Sediment (0/HPF) /HPF Urine Bacteria (NONE TO FEW) /HPF Hyaline Casts (NEGATIVE) /LPF Granular Casts (NEGATIVE) /LPF Urine Other Vancomycin Trough (10-20) ug/mL 07/31/19 07/31/19 07/31/19 Range/Units 07:00 11:47 17:11 WBC (4.0-10.2) K/uL RBC (3.77-5.09) M/uL Hgb (11.7-15.5) g/dL Hct (34.0-46.0) % MCV (84.0-98.0) fL MCH (28.2-33.3) pg MCHC (31.7-36.0) g/dL RDW (11.2-14.1) % Plt Count (150-350) K/uL Neut % (Auto) (45.0-80.0) % Lymph % (Auto) (10.0-50.0) % [place] % (Auto) (2.0-14.0) % Eos % (Auto) (0.0-5.0) % Baso % (Auto) (0.0-2.0) % Neut # (Auto) (1.40-7.00) K/uL Lymph # (Auto) (0.50-3.50) K/uL [place] # (Auto) (0.00-1.00) K/uL Eos # (Auto) (0.00-0.50) K/uL Baso # (Auto) (0.00-0.20) K/uL PT (9.5-12.0) SEC INR APTT (21.0-31.3) SEC Sodium (136-145) mmol/L Potassium (3.5-5.1) mmol/L Chloride (98-107) mmol/L Carbon Dioxide (21.0-32.0) mmol/L BUN (7-18) mg/dL Creatinine (0.51-1.17) mg/dL Est Cr Clr Drug Dosing mL/min Estimated GFR (MDRD) mL/min Glucose (74-106) mg/dL POC Glucose 248 H 174 H (65-110) mg/dl Hemoglobin A1c (4.3-5.7) % Lactic Acid 0.8 (0.4-2.0) mmol/L Calcium (8.5-10.1) mg/dL Phosphorus (2.6-4.7) mg/dL Magnesium (1.8-2.4) mg/dL Total Bilirubin (0.2-1.0) mg/dL AST (15-37) U/L ALT (12-78) U/L Alkaline Phosphatase (46-116) IU/L Creatine Kinase (26-308) U/L Creatine Kinase Index (0.0-2.5) % CK-MB (CK-2) (0.00-3.60) ng/mL Troponin I (0.000-0.056) ng/mL C-Reactive Protein (<=0.9) mg/dL NT-Pro-B Natriuret Pep (0-125) pg/mL Total Protein (6.4-8.2) g/dL Albumin (3.4-5.0) g/dL Specimen Type Urine Color Urine Appearance Urine pH (5.0-9.0) Ur Specific [place] (1.005-1.030) Urine Protein (NEGATIVE) mg/dL Urine Glucose (UA) (NEGATIVE) mg/dL Urine Ketones (NEGATIVE) mg/dL Urine Occult Blood (NEGATIVE) Urine Nitrite (NEGATIVE) Urine Bilirubin (NEGATIVE) Urine Urobilinogen (0.2-1.0) E.U./dL Ur Leukocyte Esterase (NEGATIVE) Urine RBC /HPF Urine WBC /HPF Ur Epithelial Cells /LPF Amorphous Sediment (0/HPF) /HPF Urine Bacteria (NONE TO FEW) /HPF Hyaline Casts (NEGATIVE) /LPF Granular Casts (NEGATIVE) /LPF Urine Other Vancomycin Trough (10-20) ug/mL 07/31/19 08/01/19 08/01/19 Range/Units 20:33 07:38 10:30 WBC (4.0-10.2) K/uL RBC (3.77-5.09) M/uL Hgb (11.7-15.5) g/dL Hct (34.0-46.0) % MCV (84.0-98.0) fL MCH (28.2-33.3) pg MCHC (31.7-36.0) g/dL RDW (11.2-14.1) % Plt Count (150-350) K/uL Neut % (Auto) (45.0-80.0) % Lymph % (Auto) (10.0-50.0) % [place] % (Auto) (2.0-14.0) % Eos % (Auto) (0.0-5.0) % Baso % (Auto) (0.0-2.0) % Neut # (Auto) (1.40-7.00) K/uL Lymph # (Auto) (0.50-3.50) K/uL [place] # (Auto) (0.00-1.00) K/uL Eos # (Auto) (0.00-0.50) K/uL Baso # (Auto) (0.00-0.20) K/uL PT (9.5-12.0) SEC INR APTT (21.0-31.3) SEC Sodium (136-145) mmol/L Potassium (3.5-5.1) mmol/L Chloride (98-107) mmol/L Carbon Dioxide (21.0-32.0) mmol/L BUN (7-18) mg/dL Creatinine (0.51-1.17) mg/dL Est Cr Clr Drug Dosing mL/min Estimated GFR (MDRD) mL/min Glucose (74-106) mg/dL POC Glucose 221 H 120 H (65-110) mg/dl Hemoglobin A1c (4.3-5.7) % Lactic Acid (0.4-2.0) mmol/L Calcium (8.5-10.1) mg/dL Phosphorus (2.6-4.7) mg/dL Magnesium (1.8-2.4) mg/dL Total Bilirubin (0.2-1.0) mg/dL AST (15-37) U/L ALT (12-78) U/L Alkaline Phosphatase (46-116) IU/L Creatine Kinase (26-308) U/L Creatine Kinase Index (0.0-2.5) % CK-MB (CK-2) (0.00-3.60) ng/mL Troponin I (0.000-0.056) ng/mL C-Reactive Protein (<=0.9) mg/dL NT-Pro-B Natriuret Pep (0-125) pg/mL Total Protein (6.4-8.2) g/dL Albumin (3.4-5.0) g/dL Specimen Type Urine Color Urine Appearance Urine pH (5.0-9.0) Ur Specific [place] (1.005-1.030) Urine Protein (NEGATIVE) mg/dL Urine Glucose (UA) (NEGATIVE) mg/dL Urine Ketones (NEGATIVE) mg/dL Urine Occult Blood (NEGATIVE) Urine Nitrite (NEGATIVE) Urine Bilirubin (NEGATIVE) Urine Urobilinogen (0.2-1.0) E.U./dL Ur Leukocyte Esterase (NEGATIVE) Urine RBC /HPF Urine WBC /HPF Ur Epithelial Cells /LPF Amorphous Sediment (0/HPF) /HPF Urine Bacteria (NONE TO FEW) /HPF Hyaline Casts (NEGATIVE) /LPF Granular Casts (NEGATIVE) /LPF Urine Other Vancomycin Trough 7.1 L (10-20) ug/mL 08/01/19 08/01/19 08/01/19 Range/Units 10:30 10:30 10:30 WBC 5.4 (4.0-10.2) K/uL RBC 3.84 (3.77-5.09) M/uL Hgb 10.7 L (11.7-15.5) g/dL Hct 33.2 L (34.0-46.0) % MCV 86.5 (84.0-98.0) fL MCH 27.9 L (28.2-33.3) pg MCHC 32.2 (31.7-36.0) g/dL RDW 16.4 H (11.2-14.1) % Plt Count 104 L (150-350) K/uL Neut % (Auto) 51.8 (45.0-80.0) % Lymph % (Auto) 35.7 (10.0-50.0) % [place] % (Auto) 9.5 (2.0-14.0) % Eos % (Auto) 2.8 (0.0-5.0) % Baso % (Auto) 0.2 (0.0-2.0) % Neut # (Auto) 2.79 (1.40-7.00) K/uL Lymph # (Auto) 1.92 (0.50-3.50) K/uL [place] # (Auto) 0.51 (0.00-1.00) K/uL Eos # (Auto) 0.15 (0.00-0.50) K/uL Baso # (Auto) 0.01 (0.00-0.20) K/uL PT (9.5-12.0) SEC INR APTT (21.0-31.3) SEC Sodium 142 (136-145) mmol/L Potassium 4.5 (3.5-5.1) mmol/L Chloride 108 H (98-107) mmol/L Carbon Dioxide 25.0 (21.0-32.0) mmol/L BUN 16 (7-18) mg/dL Creatinine 1.11 (0.51-1.17) mg/dL Est Cr Clr Drug Dosing 41.73 mL/min Estimated GFR (MDRD) 50 mL/min Glucose 166 H (74-106) mg/dL POC Glucose (65-110) mg/dl Hemoglobin A1c (4.3-5.7) % Lactic Acid 1.1 (0.4-2.0) mmol/L Calcium 8.6 (8.5-10.1) mg/dL Phosphorus (2.6-4.7) mg/dL Magnesium (1.8-2.4) mg/dL Total Bilirubin 0.3 (0.2-1.0) mg/dL AST 26 (15-37) U/L ALT 33 (12-78) U/L Alkaline Phosphatase 75 (46-116) IU/L Creatine Kinase (26-308) U/L Creatine Kinase Index (0.0-2.5) % CK-MB (CK-2) (0.00-3.60) ng/mL Troponin I (0.000-0.056) ng/mL C-Reactive Protein (<=0.9) mg/dL NT-Pro-B Natriuret Pep (0-125) pg/mL Total Protein 6.3 L (6.4-8.2) g/dL Albumin 2.5 L (3.4-5.0) g/dL Specimen Type Urine Color Urine Appearance Urine pH (5.0-9.0) Ur Specific [place] (1.005-1.030) Urine Protein (NEGATIVE) mg/dL Urine Glucose (UA) (NEGATIVE) mg/dL Urine Ketones (NEGATIVE) mg/dL Urine Occult Blood (NEGATIVE) Urine Nitrite (NEGATIVE) Urine Bilirubin (NEGATIVE) Urine Urobilinogen (0.2-1.0) E.U./dL Ur Leukocyte Esterase (NEGATIVE) Urine RBC /HPF Urine WBC /HPF Ur Epithelial Cells /LPF Amorphous Sediment (0/HPF) /HPF Urine Bacteria (NONE TO FEW) /HPF Hyaline Casts (NEGATIVE) /LPF Granular Casts (NEGATIVE) /LPF Urine Other Vancomycin Trough (10-20) ug/mL [place] Results Last 24 Hours: Microbiology 07/30/19 12:11 Aerobic Blood Culture - Preliminary Blood - Venous - Lab Draw NO GROWTH AFTER 1 DAY Anaerobic Blood Culture - Preliminary NO GROWTH AFTER 1 DAY 07/30/19 09:40 Aerobic Blood Culture - Preliminary Blood - Venous NO GROWTH AFTER 1 DAY Anaerobic Blood Culture - Preliminary NO GROWTH AFTER 1 DAY 07/29/19 21:40 Aerobic Blood Culture - Preliminary Blood - Venous NO GROWTH AFTER 1 DAY Anaerobic Blood Culture - Preliminary NO GROWTH AFTER 1 DAY 07/29/19 22:45 Urine Culture - Final Urine, Bladder NO GROWTH AFTER 2 DAYS Med Orders - Current: Current Medications Acetaminophen (Tylenol) 650 mg PO Q4H PRN PRN Reason: Pain (Mild 1-3)/fever Last Admin: 08/01/19 05:04 Dose: 650 mg Aspirin (Aspirin) 81 mg PO DAILY [facility] Last Admin: 07/31/19 08:53 Dose: 81 mg Enoxaparin Sodium (Lovenox) 40 mg SUBCUT DAILY [facility] Last Admin: 07/31/19 08:53 Dose: 40 mg Vancomycin HCl 1.25 gm/ Sodium (Chloride) 250 mls @ 135 mls/hr IV Q24H [facility] Last Admin: 07/31/19 10:37 Dose: 135 mls/hr Sodium Chloride (Normal Saline) 1,000 mls @ 80 mls/hr IV ASDIRECTED [facility] Last Admin: 08/01/19 01:48 Dose: 80 mls/hr Insulin Human Regular (Humulin R) 0 unit SUBCUT BIDAC [facility]; Protocol Last Admin: 07/31/19 18:44 Dose: Not Given Ondansetron HCl (Zofran) 4 mg IVPUSH Q6H PRN PRN Reason: Nausea/Vomiting Sodium Chloride (Saline Flush) 10 ml FLUSH SEECOMMENT PRN PRN Reason: IV Use Valproic Acid (Depakene) 250 mg PO BID@08,12 [facility] Last Admin: 07/31/19 11:58 Dose: 250 mg Valproic Acid (Depakene) 500 mg PO BEDTIME [facility] Last Admin: 07/31/19 20:36 Dose: 500 mg Vancomycin HCl (Pharmacy To Dose - Vancomycin) 1 dose .XX ASDIRECTED [facility] Discontinued Medications Acetaminophen (Tylenol Extra Strength) 1,000 mg PO ONETIME ONE Stop: 07/29/19 21:53 Last Admin: 07/29/19 21:58 Dose: 1,000 mg Ceftriaxone Sodium (Rocephin) 1 gm IM ONETIME ONE Stop: 07/29/19 21:53 Last Admin: 07/29/19 23:08 Dose: Not Given Ceftriaxone Sodium 1 gm/ (Sodium Chloride) 100 mls @ 200 mls/hr IV ONETIME ONE Stop: 07/29/19 22:27 Last Admin: 07/29/19 22:25 Dose: 200 mls/hr Sodium Chloride (Normal Saline) 1,000 mls @ 500 mls/hr IV .BOLUS ONE Stop: 07/29/19 23:58 Last Admin: 07/29/19 22:21 Dose: 500 mls/hr Magnesium Sulfate/Dextrose 1 (gm/ Premix) 100 mls @ 100 mls/hr IV ONETIME ONE Stop: 07/29/19 23:52 Last Admin: 07/29/19 23:19 Dose: 100 mls/hr Magnesium Sulfate/Dextrose 1 (gm/ Premix) 100 mls @ 100 mls/hr IV ONETIME ONE Stop: 07/30/19 02:59 Last Admin: 07/30/19 02:20 Dose: 100 mls/hr Magnesium Sulfate/Dextrose 1 (gm/ Premix) 100 mls @ 100 mls/hr IV ONETIME ONE Stop: 07/30/19 04:59 Last Admin: 07/30/19 04:07 Dose: 100 mls/hr Ceftriaxone Sodium 1 gm/ (Sodium Chloride) 100 mls @ 200 mls/hr IV Q24H [facility] Last Admin: 07/30/19 07:32 Dose: 200 mls/hr Sodium Chloride (Normal Saline) 1,000 mls @ 999 mls/hr IV .BOLUS ONE Stop: 07/30/19 09:14 Last Admin: 07/30/19 08:31 Dose: 999 mls/hr Sodium Chloride (Normal Saline) 1,000 mls @ 150 mls/hr IV ASDIRECTED [facility] Last Admin: 07/30/19 09:35 Dose: 150 mls/hr Ceftriaxone Sodium 1 gm/ (Sodium Chloride) 100 mls @ 200 mls/hr IV Q12H [facility] Last Admin: 07/31/19 22:07 Dose: Not Given Ceftriaxone Sodium 1 gm/ (Sodium Chloride) 100 mls @ 200 mls/hr IV ONETIME ONE Stop: 07/31/19 21:08 Last Admin: 07/31/19 20:40 Dose: 200 mls/hr Ketorolac Tromethamine (Toradol) 15 mg IVPUSH ONETIME ONE Stop: 07/30/19 09:01 Last Admin: 07/30/19 10:11 Dose: 15 mg Pneumococcal Polyvalent Vaccine (Pneumovax 23) 0.5 ml IM .ONCE ONE Stop: 07/29/19 23:03 Sodium Chloride (Saline Flush) 10 ml FLUSH ASDIRECTED PRN PRN Reason: Keep Vein Open Last Admin: 07/30/19 07:32 Dose: 10 ml - Exam Quality Assessment: DVT Prophylaxis. No: Supplemental Oxygen, Central Line/PICC , Urine Catheter, Restraints General: Alert, Oriented, Cooperative, No Acute Distress HEENT: Pupils Equal, Pupils Reactive, EOMI, Mucous Membr. Moist/[place]. No: Scleral Icterus Neck: Supple, Trachea Midline, No JVD, No Thyromegaly. No: Lymphadenopathy Lungs: Clear to Auscultation, Normal Respiratory Effort. No: Rub Cardiovascular: Regular Rate, Regular Rhythm, No Murmurs. No: Irregular Rhythm , Gallops GI/Abdominal Exam: Normal Bowel Sounds, Soft, Non-Tender, No Organomegaly, No Distention, No Abnormal Bruit, No Mass, Other (Obese). No: Guarding (Female) Exam: Deferred Back Exam: Normal Inspection, Full Range of Motion. No: CVA Tenderness (L), CVA Tenderness (R), Muscle Spasm Extremities: Normal Range of Motion, Non-Tender, No Pedal Edema, Pedal Edema ( Trace bilateral pedal/pretibial). No: Stuart's Sign Peripheral Pulses: 2+: Radial (L), Radial (R), Dorsalis Pedis (L), Dorsalis Pedis (R) Skin: Warm, Dry, Intact. No: Ecchymosis Neurological: No New Focal Deficit Psy/Mental Status: Alert, Normal Affect, Normal Mood. No: Agitated, Hallucinations, Withdrawal Symptoms - Problem List & Annotations (1) Sepsis SNOMED Code(s): 44799836 Code(s): A41.9 - SEPSIS, UNSPECIFIED ORGANISM Status: Acute Priority: High Current Visit: Yes Onset Date: 07/30/19 Qualifiers: Sepsis type: sepsis due to unspecified organism Sepsis acute organ dysfunction status: without acute organ dysfunction Qualified Code(s): A41.9 - Sepsis, unspecified organism Annotation/Comment:: Patient doing much better with combined IV vancomycin and IV Rocephin therapy as below. Normal WBCs and patient afebrile on 07/31. There is therapeutic options were discussed with the patient, who is requesting hospitalization until 08/03, which is reasonable secondary to her suspected sepsis on admission. Patient has been resistant to previously initiated IV Rocephin therapy, which will be continued. IV vancomycin therapy added on with dosing recommendations provided by pharmacy. Note the patient is allergic to penicillins. Sepsis bundle was not initiated in the emergency room, but initiated on 07/30. A blood culture 1 was collected on admission, however not initially ordered and subsequently ordered on 07/30. Additional Blood cultures 2 were also ordered on 07/30 despite previous IV Rocephin therapy, although these were collected prior to initiation of IV vancomycin as above. No chest pain or anginal type symptoms despite some lateral wall ischemia by EKG on 07/30, which did improve/resolve on 07/31. Serial cardiac labs negative. BNP somewhat elevated likely secondary to fluid overload with discontinuation of IV fluids and one dose of IV Lasix on 08/01. Note current subcutaneous Lovenox at DVT prophylaxis dose. Vancomycin trough somewhat low, however patient responding to therapy. No change of dose for now. (2) UTI (urinary tract infection), bacterial SNOMED Code(s): 231613487 Code(s): N39.0 - URINARY TRACT INFECTION, SITE NOT SPECIFIED; A49.9 - BACTERIAL INFECTION, UNSPECIFIED Status: Acute Priority: High Current Visit: Yes Onset Date: ~12/13/18 Annotation/Comment:: Suspect sepsis/ urosepsis with progressive lactic acid elevation despite IV hydration and aggressive IV antibody therapy as above. Blood and urine cultures currently no growth. Call placed to [facility] by Dr. Yuen on 07/31 to see if they obtained culture prior to initiating oral antibiotics and this was not done as it was "not indicated" at the time per clinic. Note, however, based on patient's clinical presentation, including confusion, etc., sepsis likely present on admission. (3) Elevated lactic acid level SNOMED Code(s): 6182010 Code(s): R79.89 - OTHER SPECIFIED ABNORMAL FINDINGS OF BLOOD CHEMISTRY Status: Acute Priority: High Current Visit: Yes Onset Date: 07/29/19 Annotation/Comment:: As above. Normalized on 07/31. (4) Confusion SNOMED Code(s): 461186390 Code(s): R41.0 - DISORIENTATION, UNSPECIFIED Status: Acute Priority: High Current Visit: Yes Onset Date: 07/30/19 Annotation/Comment:: Baseline mental status not certain at this time with probable chronic mental deficit per emergency room note. Confusion observed in ER at time of admission improved with aggressive IV antibiotic therapy as above with probable normal baseline on 08/01. Discontinue neurological checks with vitals, which has been stable, on 08/01. (5) IDDM (insulin dependent diabetes mellitus) SNOMED Code(s): 42550079 Code(s): E11.9 - TYPE 2 DIABETES MELLITUS WITHOUT COMPLICATIONS; Z79.4 - GUEST ADVISOR (CURRENT) USE OF INSULIN Status: Chronic Priority: Medium Current Visit: Yes Annotation/Comment:: Accu-Chek stable at this time with continuation of sliding scale. (6) Renal insufficiency SNOMED Code(s): 418995702, 304403212 Code(s): N28.9 - DISORDER OF KIDNEY AND URETER, UNSPECIFIED Status: Chronic Current Visit: Yes Onset Date: ~07/29/19 Annotation/Comment:: Probable diabetic nephropathy. Discontinue IV fluids on 08/01 with good oral intake at this time and sepsis probably resolved. Continued close observation of her renal status especially in light of additional IV vancomycin therapy with renal function also to be closely observed by her regular providers at discharge. (7) Hyperkalemia SNOMED Code(s): 29135453 Code(s): E87.5 - HYPERKALEMIA Status: Acute Priority: Medium Current Visit: Yes Onset Date: 07/30/19 Annotation/Comment:: Mild hyperkalemia during early hospitalization with normal potassium level on 07/31. (8) Hypomagnesemia SNOMED Code(s): 540245876 Code(s): E83.42 - HYPOMAGNESEMIA Status: Acute Priority: Medium Current Visit: Yes Onset Date: 07/30/19 Annotation/Comment:: Normalized after initial supplementation with IV magnesium sulfate. Continue to observe closely by regular providers after discharge. (9) Asthma SNOMED Code(s): 707069204 Code(s): J45.909 - UNSPECIFIED ASTHMA, UNCOMPLICATED Status: Chronic Priority: Medium Current Visit: Yes Qualifiers: Asthma severity: mild Asthma persistence: intermittent Asthma complication type: uncomplicated Qualified Code(s): J45.20 - Mild intermittent asthma, uncomplicated Annotation/Comment:: Currently stable per patient with no recent cough or bronchitic type symptoms. (10) Epilepsy SNOMED Code(s): 29544518 Code(s): G40.909 - EPILEPSY, UNSP, NOT INTRACTABLE, WITHOUT STATUS EPILEPTICUS Status: Chronic Priority: Medium Current Visit: Yes Qualifiers: Epilepsy type: unspecified Intractability: not intractable Status epilepticus: without status epilepticus Qualified Code(s): G40.909 - Epilepsy , unspecified, not intractable, without status epilepticus Annotation/Comment:: Stable with current medical therapy with no seizure activity during this hospitalization. Continue to observe closely. (11) Hyperlipidemia SNOMED Code(s): 88162270 Code(s): E78.5 - HYPERLIPIDEMIA, UNSPECIFIED Status: Chronic Priority: Medium Current Visit: Yes Qualifiers: Hyperlipidemia type: unspecified Qualified Code(s): E78.5 - Hyperlipidemia , unspecified Annotation/Comment:: Not currently under therapy. Note current obesity and IDDM. Continue to observe closely by her by primary provider. (12) Palliative care patient SNOMED Code(s): 299973611 Code(s): Z51.5 - ENCOUNTER FOR PALLIATIVE CARE Status: Chronic Priority: High Current Visit: Yes Annotation/Comment:: Note no code/palliative care per admitting physician. She may still benefit from hospital transfer, however. (13) Coronary artery disease SNOMED Code(s): 76436183 Code(s): I25.10 - ATHSCL HEART DISEASE OF [place] CORONARY ARTERY W/O ANG PCTRS Status: Chronic Priority: Medium Current Visit: Yes Qualifiers: Coronary Disease-Associated Artery/Lesion type: [place] artery [place] vs. transplanted heart: [place] heart Associated angina: without angina Qualified Code(s): I25.10 - Atherosclerotic heart disease of [place] coronary artery without angina pectoris Annotation/Comment:: Suspect coronary artery disease based on patient's resting EKG on 07/30 as above. Consider cardiac workup on an outpatient basis, however note patient's current status. No chest pain or anginal complaints during this hospitalization. Chest x-ray, EKG, and cardiac enzymes prior to discharge. (14) Anemia SNOMED Code(s): 528632595 Code(s): D64.9 - ANEMIA, UNSPECIFIED Status: Acute Current Visit: Yes Qualifiers: Anemia type: other cause Other causes of anemia: other cause, not classified Qualified Code(s): D64.89 - Other specified anemias Annotation/Comment:: Progressive anemia during this hospitilization likely secondary to hydration affect. Observe for now. Iron studies and Vit. B12 level prior to discharge. (15) Hypoalbuminemia SNOMED Code(s): 934558659 Code(s): E88.09 - OTH DISORDERS OF PLASMA-PROTEIN METABOLISM, NEC Status: Acute Priority: Medium Current Visit: Yes Onset Date: 08/01/19 Annotation/Comment:: Observe for now. Consider high proteln Glucerna supplements as snacks at discharge. - Problem List Review Problem List Initiated/Reviewed/Updated: Yes - My Orders Last 24 Hours: My Active Orders 08/01/19 11:00 VANCOMYCIN TROUGH [CHEM] Routine - Assessment Assessment:: As above - Plan Plan:: As above. Patient is requesting an additional 2 days of hospitalization, which is reasonable secondary to her suspected sepsis on admission. Continue aggressive IV antibiotic therapy as above. Extended hospitalization secondary to sepsis and multiple health care issues as above.
[2019-08-01] MEDS: cefTRIAXone 1 GM in Sodium Chloride 0.9% 100 ML IV SCH ×2 (09:37→21:26)
[2019-08-01] MEDS: Sodium Chloride 0.9% 10 ML Syringe FLUSH PRN ×3 (09:37→21:26)
[2019-08-01] MEDS ORDERED: Potassium Chloride 20 MEQ Tab.ER PO ONE (11:10)
[2019-08-01] MEDS ORDERED: Furosemide 40 MG/4 ML VIAL IVPUSH ONE (11:10)
[2019-08-01] MEDS: Vancomycin 2 GM in Sodium Chloride 0.9% 500 ML IV SCH (11:44)
[2019-08-02] MEDS: Insulin Regular, Human 100 Units/ML 3 ML Vial SUBCUT SCH ×2 (07:14→17:36)
--- NOTE | 2019-08-02 09:27 | PCM.PN ---
- General Info Date of Service: 08/02/19 Admission Dx/Problem (Free Text): 1. UTI with suspected sepsis 2. IDDM Functional Status: Reports: Pain Controlled, Tolerating Diet, Ambulating, Urinating. Denies: New Symptoms, Incentive Spirometry Pain Score: 0 - Review of Systems General: Reports: No Symptoms. Denies: Fever, Weakness, Fatigue, Malaise, Chills, Night Sweats, Appetite (Excellent) HEENT: Reports: Glasses. Denies: Dysphasia, Ear Pain, Eye Pain, Headaches, Post Nasal Drip, Sinus Congestion, Sore Throat, Rhinitis, Visual Changes Pulmonary: Reports: No Symptoms. Denies: Shortness of Breath, Pleuritic Chest Pain, Cough, Sputum, Wheezing Cardiovascular: Reports: No Symptoms. Denies: Chest Pain, Palpitations, Dyspnea on Exertion, Orthopnea, PND, Edema, Lightheadedness Gastrointestinal: Reports: No Symptoms. Denies: Abdominal Pain, Constipation, Decreased Appetite, Diarrhea (Despite IV antibiotics with normal bowel movement yesterday), Hematochezia, Melena, Nausea, Vomiting Genitourinary: Reports: No Symptoms. Denies: Dysuria, Frequency, Burning, Pain , Urgency, Incontinence, Hematuria, Retention, Flank Pain Musculoskeletal: Reports: No Symptoms. Denies: Neck Pain, Shoulder Pain, Arm Pain, Back Pain, Leg Pain Skin: Reports: No Symptoms. Denies: Diaphoresis Neurological: Reports: No Symptoms, Other (Stable baseline mental status/deficit ). Denies: Confusion, Dizziness, Headache, Paresthesia, Difficulty Walking, Weakness Psychiatric: Reports: No Symptoms. Denies: Confusion, Depression, Anxiety, Agitation, Cravings, Hallucinations, Homicidal Ideation - Patient Data Vitals - Most Recent: Last Vital Signs Temp 36.6 C 08/02/19 07:08 Pulse 66 08/02/19 07:08 Resp 16 08/02/19 07:08 BP 140/60 08/02/19 07:08 Pulse Ox 95 08/02/19 07:08 Vital Signs - 24 hr 08/01/19 08/01/19 08/01/19 12:00 15:51 20:00 Temperature [ 36.6 C 36.6 C 36.6 C Oral] Pulse, 67 63 69 Peripheral [ Left Pulse Oximetry] Respiratory 20 18 20 Rate Blood Pressure 171/73 H [Left Upper Arm ] Blood Pressure 168/73 H 155/74 H [Right Upper Arm] O2 Sat by Pulse 100 97 100 Oximetry 08/01/19 08/02/19 22:00 07:08 Temperature [ 36.6 C Oral] Pulse, 66 Peripheral [ Left Pulse Oximetry] Respiratory 16 Rate Blood Pressure [Left Upper Arm ] Blood Pressure 140/60 [Right Upper Arm] O2 Sat by Pulse 100 95 Oximetry Weight - Most Recent: 88.587 kg I&O - Last 24 Hours: Intake & Output 08/01/19 08/02/19 08/02/19 22:59 06:59 14:59 Intake Total 890 130 Output Total 2200 1300 Balance -1310 130 -1300 Imaging Impressions - Last 24 Hours: None Lab Results Last 24 Hours: Laboratory Results - last 24 hr 08/01/19 08/01/19 08/01/19 Range/Units 10:30 10:30 10:30 WBC (4.0-10.2) K/uL RBC (3.77-5.09) M/uL Hgb (11.7-15.5) g/dL Hct (34.0-46.0) % MCV (84.0-98.0) fL MCH (28.2-33.3) pg MCHC (31.7-36.0) g/dL RDW (11.2-14.1) % Plt Count (150-350) K/uL Neut % (Auto) (45.0-80.0) % Lymph % (Auto) (10.0-50.0) % [place] % (Auto) (2.0-14.0) % Eos % (Auto) (0.0-5.0) % Baso % (Auto) (0.0-2.0) % Neut # (Auto) (1.40-7.00) K/uL Lymph # (Auto) (0.50-3.50) K/uL [place] # (Auto) (0.00-1.00) K/uL Eos # (Auto) (0.00-0.50) K/uL Baso # (Auto) (0.00-0.20) K/uL Sodium 142 (136-145) mmol/L Potassium 4.5 (3.5-5.1) mmol/L Chloride 108 H (98-107) mmol/L Carbon Dioxide 25.0 (21.0-32.0) mmol/L BUN 16 (7-18) mg/dL Creatinine 1.11 (0.51-1.17) mg/dL Est Cr Clr Drug Dosing 41.73 mL/min Estimated GFR (MDRD) 50 mL/min Glucose 166 H (74-106) mg/dL POC Glucose (65-110) mg/dl Lactic Acid 1.1 (0.4-2.0) mmol/L Calcium 8.6 (8.5-10.1) mg/dL Total Bilirubin 0.3 (0.2-1.0) mg/dL AST 26 (15-37) U/L ALT 33 (12-78) U/L Alkaline Phosphatase 75 (46-116) IU/L Total Protein 6.3 L (6.4-8.2) g/dL Albumin 2.5 L (3.4-5.0) g/dL Vancomycin Trough 7.1 L (10-20) ug/mL 08/01/19 08/01/19 08/01/19 Range/Units 10:30 11:32 17:07 WBC 5.4 (4.0-10.2) K/uL RBC 3.84 (3.77-5.09) M/uL Hgb 10.7 L (11.7-15.5) g/dL Hct 33.2 L (34.0-46.0) % MCV 86.5 (84.0-98.0) fL MCH 27.9 L (28.2-33.3) pg MCHC 32.2 (31.7-36.0) g/dL RDW 16.4 H (11.2-14.1) % Plt Count 104 L (150-350) K/uL Neut % (Auto) 51.8 (45.0-80.0) % Lymph % (Auto) 35.7 (10.0-50.0) % [place] % (Auto) 9.5 (2.0-14.0) % Eos % (Auto) 2.8 (0.0-5.0) % Baso % (Auto) 0.2 (0.0-2.0) % Neut # (Auto) 2.79 (1.40-7.00) K/uL Lymph # (Auto) 1.92 (0.50-3.50) K/uL [place] # (Auto) 0.51 (0.00-1.00) K/uL Eos # (Auto) 0.15 (0.00-0.50) K/uL Baso # (Auto) 0.01 (0.00-0.20) K/uL Sodium (136-145) mmol/L Potassium (3.5-5.1) mmol/L Chloride (98-107) mmol/L Carbon Dioxide (21.0-32.0) mmol/L BUN (7-18) mg/dL Creatinine (0.51-1.17) mg/dL Est Cr Clr Drug Dosing mL/min Estimated GFR (MDRD) mL/min Glucose (74-106) mg/dL POC Glucose 188 H 164 H (65-110) mg/dl Lactic Acid (0.4-2.0) mmol/L Calcium (8.5-10.1) mg/dL Total Bilirubin (0.2-1.0) mg/dL AST (15-37) U/L ALT (12-78) U/L Alkaline Phosphatase (46-116) IU/L Total Protein (6.4-8.2) g/dL Albumin (3.4-5.0) g/dL Vancomycin Trough (10-20) ug/mL 08/01/19 08/02/19 Range/Units 19:18 06:42 WBC (4.0-10.2) K/uL RBC (3.77-5.09) M/uL Hgb (11.7-15.5) g/dL Hct (34.0-46.0) % MCV (84.0-98.0) fL MCH (28.2-33.3) pg MCHC (31.7-36.0) g/dL RDW (11.2-14.1) % Plt Count (150-350) K/uL Neut % (Auto) (45.0-80.0) % Lymph % (Auto) (10.0-50.0) % [place] % (Auto) (2.0-14.0) % Eos % (Auto) (0.0-5.0) % Baso % (Auto) (0.0-2.0) % Neut # (Auto) (1.40-7.00) K/uL Lymph # (Auto) (0.50-3.50) K/uL [place] # (Auto) (0.00-1.00) K/uL Eos # (Auto) (0.00-0.50) K/uL Baso # (Auto) (0.00-0.20) K/uL Sodium (136-145) mmol/L Potassium (3.5-5.1) mmol/L Chloride (98-107) mmol/L Carbon Dioxide (21.0-32.0) mmol/L BUN (7-18) mg/dL Creatinine (0.51-1.17) mg/dL Est Cr Clr Drug Dosing mL/min Estimated GFR (MDRD) mL/min Glucose (74-106) mg/dL POC Glucose 230 H 124 H (65-110) mg/dl Lactic Acid (0.4-2.0) mmol/L Calcium (8.5-10.1) mg/dL Total Bilirubin (0.2-1.0) mg/dL AST (15-37) U/L ALT (12-78) U/L Alkaline Phosphatase (46-116) IU/L Total Protein (6.4-8.2) g/dL Albumin (3.4-5.0) g/dL Vancomycin Trough (10-20) ug/mL [place] Results Last 24 Hours: Microbiology 07/30/19 12:11 Aerobic Blood Culture - Preliminary Blood - Venous - Lab Draw NO GROWTH AFTER 2 DAYS Anaerobic Blood Culture - Preliminary NO GROWTH AFTER 2 DAYS 07/30/19 09:40 Aerobic Blood Culture - Preliminary Blood - Venous NO GROWTH AFTER 2 DAYS Anaerobic Blood Culture - Preliminary NO GROWTH AFTER 2 DAYS 07/29/19 21:40 Aerobic Blood Culture - Preliminary Blood - Venous NO GROWTH AFTER 2 DAYS Anaerobic Blood Culture - Preliminary NO GROWTH AFTER 2 DAYS Med Orders - Current: Current Medications Acetaminophen (Tylenol) 650 mg PO Q4H PRN PRN Reason: Pain (Mild 1-3)/fever Last Admin: 08/01/19 05:04 Dose: 650 mg Aspirin (Aspirin) 81 mg PO DAILY [facility] Last Admin: 08/01/19 08:37 Dose: 81 mg Enoxaparin Sodium (Lovenox) 40 mg SUBCUT DAILY [facility] Last Admin: 08/01/19 08:37 Dose: 40 mg Ceftriaxone Sodium 1 gm/ (Sodium Chloride) 100 mls @ 200 mls/hr IV Q12H [facility] Last Admin: 08/01/19 21:26 Dose: 200 mls/hr Vancomycin HCl 2 gm/ Sodium (Chloride) 500 mls @ 165 mls/hr IV Q24H [facility] Last Admin: 08/01/19 11:44 Dose: 165 mls/hr Insulin Human Regular (Humulin R) 0 unit SUBCUT BIDAC [facility]; Protocol Last Admin: 08/02/19 07:14 Dose: Not Given Ondansetron HCl (Zofran) 4 mg IVPUSH Q6H PRN PRN Reason: Nausea/Vomiting Sodium Chloride (Saline Flush) 10 ml FLUSH SEECOMMENT PRN PRN Reason: IV Use Last Admin: 08/01/19 21:26 Dose: 10 ml Valproic Acid (Depakene) 250 mg PO BID@08,12 [facility] Last Admin: 08/01/19 11:46 Dose: 250 mg Valproic Acid (Depakene) 500 mg PO BEDTIME [facility] Last Admin: 08/01/19 19:19 Dose: 500 mg Vancomycin HCl (Pharmacy To Dose - Vancomycin) 1 dose .XX ASDIRECTED [facility] Discontinued Medications Acetaminophen (Tylenol Extra Strength) 1,000 mg PO ONETIME ONE Stop: 07/29/19 21:53 Last Admin: 07/29/19 21:58 Dose: 1,000 mg Ceftriaxone Sodium (Rocephin) 1 gm IM ONETIME ONE Stop: 07/29/19 21:53 Last Admin: 07/29/19 23:08 Dose: Not Given Furosemide (Lasix) 60 mg IVPUSH NOW ONE Stop: 08/01/19 11:11 Last Admin: 08/01/19 11:45 Dose: 60 mg Ceftriaxone Sodium 1 gm/ (Sodium Chloride) 100 mls @ 200 mls/hr IV ONETIME ONE Stop: 07/29/19 22:27 Last Admin: 07/29/19 22:25 Dose: 200 mls/hr Sodium Chloride (Normal Saline) 1,000 mls @ 500 mls/hr IV .BOLUS ONE Stop: 07/29/19 23:58 Last Admin: 07/29/19 22:21 Dose: 500 mls/hr Magnesium Sulfate/Dextrose 1 (gm/ Premix) 100 mls @ 100 mls/hr IV ONETIME ONE Stop: 07/29/19 23:52 Last Admin: 07/29/19 23:19 Dose: 100 mls/hr Magnesium Sulfate/Dextrose 1 (gm/ Premix) 100 mls @ 100 mls/hr IV ONETIME ONE Stop: 07/30/19 02:59 Last Admin: 07/30/19 02:20 Dose: 100 mls/hr Magnesium Sulfate/Dextrose 1 (gm/ Premix) 100 mls @ 100 mls/hr IV ONETIME ONE Stop: 07/30/19 04:59 Last Admin: 07/30/19 04:07 Dose: 100 mls/hr Ceftriaxone Sodium 1 gm/ (Sodium Chloride) 100 mls @ 200 mls/hr IV Q24H [facility] Last Admin: 07/30/19 07:32 Dose: 200 mls/hr Sodium Chloride (Normal Saline) 1,000 mls @ 999 mls/hr IV .BOLUS ONE Stop: 07/30/19 09:14 Last Admin: 07/30/19 08:31 Dose: 999 mls/hr Sodium Chloride (Normal Saline) 1,000 mls @ 150 mls/hr IV ASDIRECTED [facility] Last Admin: 07/30/19 09:35 Dose: 150 mls/hr Vancomycin HCl 1.25 gm/ Sodium (Chloride) 250 mls @ 135 mls/hr IV Q24H [facility] Last Admin: 08/01/19 11:48 Dose: Not Given Ceftriaxone Sodium 1 gm/ (Sodium Chloride) 100 mls @ 200 mls/hr IV Q12H [facility] Last Admin: 07/31/19 22:07 Dose: Not Given Sodium Chloride (Normal Saline) 1,000 mls @ 80 mls/hr IV ASDIRECTED [facility] Last Admin: 08/01/19 01:48 Dose: 80 mls/hr Ceftriaxone Sodium 1 gm/ (Sodium Chloride) 100 mls @ 200 mls/hr IV ONETIME ONE Stop: 07/31/19 21:08 Last Admin: 07/31/19 20:40 Dose: 200 mls/hr Ketorolac Tromethamine (Toradol) 15 mg IVPUSH ONETIME ONE Stop: 07/30/19 09:01 Last Admin: 07/30/19 10:11 Dose: 15 mg Pneumococcal Polyvalent Vaccine (Pneumovax 23) 0.5 ml IM .ONCE ONE Stop: 07/29/19 23:03 Potassium Chloride (Klor-Con M20) 40 meq PO ONETIME ONE Stop: 08/01/19 11:11 Last Admin: 08/01/19 11:46 Dose: 40 meq Sodium Chloride (Saline Flush) 10 ml FLUSH ASDIRECTED PRN PRN Reason: Keep Vein Open Last Admin: 07/30/19 07:32 Dose: 10 ml - Exam Quality Assessment: DVT Prophylaxis (Subcutaneous Lovenox). No: Supplemental Oxygen, Central Line/PICC, Urine Catheter, Restraints General: Alert, Oriented, Cooperative, No Acute Distress HEENT: Pupils Equal, Pupils Reactive, EOMI, Mucous Membr. Moist/[place], Other ( Patient wearing glasses) Neck: Supple, Trachea Midline, No JVD, No Thyromegaly. No: Lymphadenopathy Lungs: Clear to Auscultation, Normal Respiratory Effort. No: Rales, Wheezing Cardiovascular: Regular Rate, Regular Rhythm, No Murmurs. No: Murmurs, Gallops , Rubs GI/Abdominal Exam: Normal Bowel Sounds, Soft, Non-Tender, No Organomegaly, No Distention, No Abnormal Bruit, No Mass, Other (Obese). No: Guarding (Female) Exam: Deferred Back Exam: Normal Inspection, Full Range of Motion. No: CVA Tenderness (L), CVA Tenderness (R), Muscle Spasm Extremities: Normal Inspection, Normal Range of Motion, Non-Tender, No Pedal Edema, Normal Capillary Refill. No: Stuart's Sign Peripheral Pulses: 2+: Radial (L), Radial (R), Dorsalis Pedis (L), Dorsalis Pedis (R) Skin: Warm, Dry, Intact. No: Ecchymosis Neurological: No New Focal Deficit, Other (Stable mental deficit likely normal baseline with no confusion) Psy/Mental Status: Alert, Normal Affect, Normal Mood. No: Agitated, Hallucinations, Withdrawal Symptoms - Problem List & Annotations (1) Sepsis SNOMED Code(s): 29665320 Code(s): A41.9 - SEPSIS, UNSPECIFIED ORGANISM Status: Acute Priority: High Current Visit: Yes Onset Date: 07/30/19 Qualifiers: Sepsis type: sepsis due to unspecified organism Sepsis acute organ dysfunction status: without acute organ dysfunction Qualified Code(s): A41.9 - Sepsis, unspecified organism Annotation/Comment:: Patient doing much better with combined IV vancomycin and IV Rocephin therapy as below. Normal WBCs and patient afebrile on 07/31. Various therapeutic options were discussed with the patient, who requested hospitalization until 08/03, which is reasonable secondary to her suspected sepsis on admission. Patient has been resistant to previously initiated IV Rocephin therapy, which will be continued. IV vancomycin therapy added on with dosing recommendations provided by pharmacy. Note the patient is allergic to penicillins. Sepsis bundle was not initiated in the emergency room, but initiated on 07/30. A blood culture 1 was collected on admission, however not initially ordered and subsequently ordered on 07/30. Additional Blood cultures 2 were also ordered on 07/30 despite previous IV Rocephin therapy, although these were collected prior to initiation of IV vancomycin as above. No chest pain or anginal type symptoms despite some lateral wall ischemia by EKG on 07/30, which did improve/resolve on 07/31. Serial cardiac labs negative. BNP somewhat elevated likely secondary to fluid overload with discontinuation of IV fluids and one dose of IV Lasix on 08/01. Note current subcutaneous Lovenox at DVT prophylaxis dose. Vancomycin trough somewhat low, however patient responding to therapy. No change of dose for now. (2) UTI (urinary tract infection), bacterial SNOMED Code(s): 935302883 Code(s): N39.0 - URINARY TRACT INFECTION, SITE NOT SPECIFIED; A49.9 - BACTERIAL INFECTION, UNSPECIFIED Status: Acute Priority: High Current Visit: Yes Onset Date: ~12/13/18 Annotation/Comment:: Suspect sepsis/ urosepsis with progressive lactic acid elevation despite IV hydration and aggressive IV antibody therapy as above. Blood and urine cultures currently no growth. Call placed to [facility] by Dr. Yuen on 07/31 to see if they obtained culture prior to initiating oral antibiotics and this was not done as it was "not indicated" at the time per clinic. Note, however, based on patient's clinical presentation, including confusion, etc., sepsis likely present on admission. (3) Elevated lactic acid level SNOMED Code(s): 7270181 Code(s): R79.89 - OTHER SPECIFIED ABNORMAL FINDINGS OF BLOOD CHEMISTRY Status: Acute Priority: High Current Visit: Yes Onset Date: 07/29/19 Annotation/Comment:: As above. Normalized on 07/31. (4) Confusion SNOMED Code(s): 384714117 Code(s): R41.0 - DISORIENTATION, UNSPECIFIED Status: Acute Priority: High Current Visit: Yes Onset Date: 07/30/19 Annotation/Comment:: Baseline mental status not certain at admission with probable chronic mental deficit per emergency room note. Confusion observed in ER at time of admission improved with aggressive IV antibiotic therapy as above with probable normal baseline on 08/01. Discontinued neurological checks with vitals, which have been stable, on 08/01. (5) IDDM (insulin dependent diabetes mellitus) SNOMED Code(s): 91362897 Code(s): E11.9 - TYPE 2 DIABETES MELLITUS WITHOUT COMPLICATIONS; Z79.4 - USP (CURRENT) USE OF INSULIN Status: Chronic Priority: Medium Current Visit: Yes Annotation/Comment:: Accu-Chek stable although variable at this time with continuation of sliding scale. Weight loss in moderation is advisable. (6) Renal insufficiency SNOMED Code(s): 606659202, 388143662 Code(s): N28.9 - DISORDER OF KIDNEY AND URETER, UNSPECIFIED Status: Chronic Current Visit: Yes Onset Date: ~07/29/19 Annotation/Comment:: Probable diabetic nephropathy. Discontinue IV fluids on 08/01 with good oral intake at this time and sepsis probably resolved. Continued close observation of her renal status especially in light of additional IV vancomycin therapy with renal function also to be closely observed by her regular providers at discharge. (7) Hyperkalemia SNOMED Code(s): 06784891 Code(s): E87.5 - HYPERKALEMIA Status: Acute Priority: Medium Current Visit: Yes Onset Date: 07/30/19 Annotation/Comment:: Mild hyperkalemia during early hospitalization with normal potassium level on 07/31. (8) Hypomagnesemia SNOMED Code(s): 169273412 Code(s): E83.42 - HYPOMAGNESEMIA Status: Acute Priority: Medium Current Visit: Yes Onset Date: 07/30/19 Annotation/Comment:: Normalized after initial supplementation with IV magnesium sulfate. Continue to observe closely by regular providers after discharge. (9) Asthma SNOMED Code(s): 593913807 Code(s): J45.909 - UNSPECIFIED ASTHMA, UNCOMPLICATED Status: Chronic Priority: Medium Current Visit: Yes Qualifiers: Asthma severity: mild Asthma persistence: intermittent Asthma complication type: uncomplicated Qualified Code(s): J45.20 - Mild intermittent asthma, uncomplicated Annotation/Comment:: Currently stable per patient with no recent cough or bronchitic type symptoms. (10) Epilepsy SNOMED Code(s): 16266180 Code(s): G40.909 - EPILEPSY, UNSP, NOT INTRACTABLE, WITHOUT STATUS EPILEPTICUS Status: Chronic Priority: Medium Current Visit: Yes Qualifiers: Epilepsy type: unspecified Intractability: not intractable Status epilepticus: without status epilepticus Qualified Code(s): G40.909 - Epilepsy , unspecified, not intractable, without status epilepticus Annotation/Comment:: Stable with current medical therapy with no seizure activity during this hospitalization. Continue to observe closely. (11) Hyperlipidemia SNOMED Code(s): 62729004 Code(s): E78.5 - HYPERLIPIDEMIA, UNSPECIFIED Status: Chronic Priority: Medium Current Visit: Yes Qualifiers: Hyperlipidemia type: unspecified Qualified Code(s): E78.5 - Hyperlipidemia , unspecified Annotation/Comment:: Not currently under therapy. Note current obesity and IDDM. Continue to observe closely by her by primary provider, Shanel Feliz PA-C , at [facility]. (12) Palliative care patient SNOMED Code(s): 127996248 Code(s): Z51.5 - ENCOUNTER FOR PALLIATIVE CARE Status: Chronic Priority: High Current Visit: Yes Annotation/Comment:: Note no code/palliative care per admitting physician. She may still benefit from hospital transfer, however. (13) Coronary artery disease SNOMED Code(s): 54528642 Code(s): I25.10 - ATHSCL HEART DISEASE OF [place] CORONARY ARTERY W/O ANG PCTRS Status: Chronic Priority: Medium Current Visit: Yes Qualifiers: Coronary Disease-Associated Artery/Lesion type: [place] artery [place] vs. transplanted heart: [place] heart Associated angina: without angina Qualified Code(s): I25.10 - Atherosclerotic heart disease of [place] coronary artery without angina pectoris Annotation/Comment:: Suspect coronary artery disease based on patient's resting EKG on 07/30 as above. Consider cardiac workup on an outpatient basis, including Cardiolite stress test in this facility once her current infection has resolved. This was discussed with the patient today however she wishes to consider this further at this time. Note patient's current NO CODE STATUS. No chest pain or anginal complaints during this hospitalization. Added low-dose Imdur therapy on 08/02 as cardiac prophylaxis and improved blood pressure control. Chest x-ray, EKG, and repeat blood work, including cardiac enzymes have been ordered prior to discharge. Note some recent fluid overload secondary to patient's sepsis with excellent results with one dose of IV Lasix on 08/01. Consider echocardiogram depending on her clinical course. (14) Anemia SNOMED Code(s): 207841177 Code(s): D64.9 - ANEMIA, UNSPECIFIED Status: Acute Priority: Medium Current Visit: Yes Qualifiers: Anemia type: other cause Other causes of anemia: other cause, not classified Qualified Code(s): D64.89 - Other specified anemias Annotation/Comment:: Progressive anemia during this hospitilization likely secondary to hydration affect. Observe for now. Iron studies, folate acid level , and Vit. B12 level on 08/03 prior to discharge. (15) Hypoalbuminemia SNOMED Code(s): 647922414 Code(s): E88.09 - [facility] DISORDERS OF PLASMA-PROTEIN METABOLISM, NEC Status: Acute Priority: Medium Current Visit: Yes Onset Date: 08/01/19 Annotation/Comment:: Observe for now. Consider high proteln Glucerna supplements as snacks at discharge. - Problem List Review Problem List Initiated/Reviewed/Updated: Yes - My Orders Last 24 Hours: My Active Orders 08/01/19 10:00 cefTRIAXone [Rocephin] 1 gm Sodium Chloride 0.9% [Normal Saline] 100 ml IV Q12H 08/01/19 11:23 OCCULT BLOOD DIAGNOSTIC [OP] Routine 08/01/19 12:00 Vancomycin 2 gm Sodium Chloride 0.9% [Normal Saline] 500 ml IV Q24H 08/03/19 05:11 EKG Documentation Completion [RC] ASDIRECTED Chest 2V [CR] Routine EKG 12 Lead [EK] Routine 08/03/19 11:30 CBC WITH AUTO DIFF [HEME] Routine CK W CKMB [CHEM] Routine COMPREHENSIVE METABOLIC PN,CMP [CHEM] Routine FERRITIN [CHEM] Routine IRON/TIBC [CHEM] Routine PRO B-TYPE NATRIUR PEPT,BNPPRO [CHEM] Routine TROPONIN I [CHEM] Routine VITAMIN B12 [CHEM] Routine - Assessment Assessment:: As above - Plan Plan:: As above. Patient is requesting an additional 1 day of hospitalization, which is reasonable secondary to her suspected sepsis on admission. Continue aggressive IV antibiotic therapy as above. Extended hospitalization secondary to sepsis and multiple health care issues as above. X-rays and blood work have been ordered for 08/03 with likely discharge to home tomorrow by Dr. Yuen.
[2019-08-02] MEDS: Valproic Acid 250 MG Cap PO SCH ×3 (09:28→20:35)
[2019-08-02] MEDS: Aspirin 81 MG Tab.Chew PO SCH (09:28)
[2019-08-02] MEDS: Enoxaparin 40 MG/0.4 ML Syringe SUBCUT SCH (09:28)
[2019-08-02] MEDS: Sodium Chloride 0.9% 10 ML Syringe FLUSH PRN ×4 (09:29→22:53)
[2019-08-02] MEDS: cefTRIAXone 1 GM in Sodium Chloride 0.9% 100 ML IV SCH ×2 (09:29→22:51)
[2019-08-02] MEDS: Vancomycin 2 GM in Sodium Chloride 0.9% 500 ML IV SCH (12:12)
[2019-08-02] MEDS ORDERED: Isosorbide Mononitrate 30 MG Tab.ER PO SCH ×2 (17:30→20:00)
[2019-08-02] MEDS: Acetaminophen 325 MG Tab PO PRN (20:35)
[2019-08-03] MEDS: Acetaminophen 325 MG Tab PO PRN ×2 (02:07→07:47)
[2019-08-03] MEDS: Insulin Regular, Human 100 Units/ML 3 ML Vial SUBCUT SCH (07:47)
[2019-08-03] MEDS: Valproic Acid 250 MG Cap PO SCH ×2 (07:47→12:28)
[2019-08-03] MEDS: Aspirin 81 MG Tab.Chew PO SCH (07:47)
[2019-08-03] MEDS: Enoxaparin 40 MG/0.4 ML Syringe SUBCUT SCH (07:48)
[2019-08-03] MEDS ORDERED: Pneumococcal Polyvalent-23 Vaccine 0.5 ML SDV IM ONE (09:00)
[2019-08-03] MEDS: cefTRIAXone 1 GM in Sodium Chloride 0.9% 100 ML IV SCH (09:41)
[2019-08-03 11:03] VITALS: BP 154/79; PULSE 56
[2019-08-03] MEDS: Vancomycin 2 GM in Sodium Chloride 0.9% 500 ML IV SCH (12:28)
[2019-08-03] MEDS: Sodium Chloride 0.9% 10 ML Syringe FLUSH PRN (12:28)
--- NOTE | 2019-08-03 15:13 | PCM.DCSUM1 ---
Discharge Summary - Hospital Course Brief History: Admitted for treatment of UTI Diagnosis: Stroke: No - Discharge Data Discharge Date: 08/03/19 Discharge Disposition: Home, Self-Care 01 Condition: Good - Referral to Home Health Primary Care Physician: Karlene Moran PA-C - Discharge Diagnosis/Problem(s) (1) Sepsis SNOMED Code(s): 39936493 ICD Code: A41.9 - SEPSIS, UNSPECIFIED ORGANISM Status: Acute Priority: High Current Visit: Yes Onset Date: 07/30/19 Problem Details: Patient much improved s/p combined Vanco/Rocephin therapy. Blood and urine cultures negative. Afebrile. Qualifiers: Sepsis type: sepsis due to unspecified organism Sepsis acute organ dysfunction status: without acute organ dysfunction Qualified Code(s): A41.9 - Sepsis, unspecified organism (2) UTI (urinary tract infection), bacterial SNOMED Code(s): 398825832 ICD Code: N39.0 - URINARY TRACT INFECTION, SITE NOT SPECIFIED; A49.9 - BACTERIAL INFECTION, UNSPECIFIED Status: Acute Priority: High Current Visit: Yes Onset Date: ~12/13/18 Problem Details: Culture obtained in ER negative. Call placed to [facility] on 07/31 to see if they obtained culture prior to initiating oral antibiotics and this was not done as it was "not indicated" at the time per clinic. Treated with Vanco and Rocephin. (3) Elevated lactic acid level SNOMED Code(s): 7675155 ICD Code: R79.89 - OTHER SPECIFIED ABNORMAL FINDINGS OF BLOOD CHEMISTRY Status: Acute Priority: High Current Visit: Yes Onset Date: 07/29/19 Problem Details: As above. Normalized on 07/31. (4) Confusion SNOMED Code(s): 389663058 ICD Code: R41.0 - DISORIENTATION, UNSPECIFIED Status: Acute Priority: High Current Visit: Yes Onset Date: 07/30/19 Problem Details: Baseline mental status not certain at admission with probable chronic mental deficit per emergency room note. Confusion observed in ER at time of admission improved with aggressive IV antibiotic therapy as above with probable normal baseline on 08/01. (5) Hyperkalemia SNOMED Code(s): 52989953 ICD Code: E87.5 - HYPERKALEMIA Status: Acute Priority: Medium Current Visit: Yes Onset Date: 07/30/19 Problem Details: Mild hyperkalemia during early hospitalization with normal potassium level on 07/31. (6) Hypomagnesemia SNOMED Code(s): 302390894 ICD Code: E83.42 - HYPOMAGNESEMIA Status: Acute Priority: Medium Current Visit: Yes Onset Date: 07/30/19 Problem Details: Normalized after initial supplementation with IV magnesium sulfate. Continue to observe closely by regular providers after discharge. 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 Weight loss in moderation is advisable. (8) Hyperlipidemia SNOMED Code(s): 37993300 ICD Code: E78.5 - HYPERLIPIDEMIA, UNSPECIFIED Status: Chronic Priority: Medium Current Visit: Yes Problem Details: Not currently under therapy. Note current obesity and IDDM. Continue to observe closely by her by primary provider, Shanel Feliz PA-C, at [facility]. Qualifiers: Hyperlipidemia type: unspecified Qualified Code(s): E78.5 - Hyperlipidemia , unspecified (9) Palliative care patient SNOMED Code(s): 181733268 ICD Code: Z51.5 - ENCOUNTER FOR PALLIATIVE CARE Status: Chronic Priority : High Current Visit: Yes Problem Details: Note no code/palliative care per admitting physician. She may still benefit from hospital transfer, however. (10) Renal insufficiency SNOMED Code(s): 039097074, 179625617 ICD Code: N28.9 - DISORDER OF KIDNEY AND URETER, UNSPECIFIED Status: Chronic Current Visit: Yes Onset Date: ~07/29/19 Problem Details: Probable diabetic nephropathy. Follow up with regular provider. (11) Anemia SNOMED Code(s): 611476343 ICD Code: D64.9 - ANEMIA, UNSPECIFIED Status: Acute Priority: Medium Current Visit: Yes Problem Details: Progressive anemia during this hospitilization likely secondary to hydration affect. Observe for now. Iron level, TIBC, % Sat, Ferritin, and B12 normal levels. Folate level 0.1 below normal range. Qualifiers: Anemia type: other cause Other causes of anemia: other cause, not classified Qualified Code(s): D64.89 - Other specified anemias (12) Hypoalbuminemia SNOMED Code(s): 942772513 ICD Code: E88.09 - OTH DISORDERS OF PLASMA-PROTEIN METABOLISM, NEC Status: Acute Priority: Medium Current Visit: Yes Onset Date: 08/01/19 Problem Details: Follow up with primary provider. (13) Coronary artery disease SNOMED Code(s): 96187779 ICD Code: I25.10 - ATHSCL HEART DISEASE OF [place] CORONARY ARTERY W/O ANG PCTRS Status: Chronic Priority: Medium Current Visit: Yes Problem Details: Note some recent fluid overload secondary to patient's sepsis with excellent results with one dose of IV Lasix on 08/01. Trop negative today. No acute changes on EKG. Follow up with regular provider and discuss scheduling stress test/echo to more fully assess cardiac function. Qualifiers: Coronary Disease-Associated Artery/Lesion type: false pass artery [place] vs. transplanted heart: false pass heart Associated angina: without angina Qualified Code(s): I25.10 - Atherosclerotic heart disease of [place] coronary artery without angina pectoris (14) Epilepsy SNOMED Code(s): 17991716 ICD Code: G40.909 - EPILEPSY, UNSP, NOT INTRACTABLE, WITHOUT STATUS EPILEPTICUS Status: Chronic Priority: Medium Current Visit: Yes Problem Details: Stable with current medical therapy with no seizure activity during this hospitalization. Qualifiers: Epilepsy type: unspecified Intractability: not intractable Status epilepticus: without status epilepticus Qualified Code(s): G40.909 - Epilepsy , unspecified, not intractable, without status epilepticus (15) Asthma SNOMED Code(s): 236566511 ICD Code: J45.909 - UNSPECIFIED ASTHMA, UNCOMPLICATED Status: Chronic Priority: Medium Current Visit: Yes Problem Details: Currently stable per patient with no recent cough or bronchitic type symptoms. Qualifiers: Asthma severity: mild Asthma persistence: intermittent Asthma complication type: uncomplicated Qualified Code(s): J45.20 - Mild intermittent asthma, uncomplicated - Patient Summary/Data Hospital Course: Patient initially started on Rocephin in ER. Vanco added the following day. She responded well to this and improvement noted over the next 24 hours. Fevers/ confusion resolved. Lactic acid normalized. IV antibiotics continued given suspicion of sepsis. Blood and urine cultures negative. - Patient Instructions Diet: Diabetic Diet Activity: As Tolerated Showering/Bathing: May Shower Other/Special Instructions: Make an appointment to follow up with your primary provider in one week. Get your urine retested at that time. Review concerns that you might have in addition to the problem list generated here during your hospitalization, including if you should be scheduled for a stress test. Follow up otherwise as needed if you have problems. - Discharge Plan *PRESCRIPTION DRUG MONITORING PROGRAM REVIEWED*: Not Applicable *COPY OF PRESCRIPTION DRUG MONITORING REPORT IN PATIENT GREY: Not Applicable Prescriptions/Med Rec: Isosorbide Mononitrate [Imdur] 30 mg PO QPM #30 tab.er Home Medications: Home Meds Aspirin 81 mg PO DAILY 07/20/16 [History] Insulin Glargine,Hum.Rec.Anlog [Toujeo Solostar] 38 units SUBCUT DAILY 12/13/18 [History] Valproic Acid 500 mg PO BEDTIME 12/13/18 [History] Valproic Acid [Depakene] 250 mg PO BID@08,12 12/13/18 [History] Acetaminophen [Pain Relief] 650 mg PO Q4HR PRN 07/29/19 [History] Nitrofurantoin Monohyd/M-Cryst [Macrobid 100 mg Capsule] 100 mg PO BID 07/29/19 [History] Isosorbide Mononitrate [Imdur] 30 mg PO QPM #30 tab.er 08/03/19 [Rx] Patient Handouts: Isosorbide Mononitrate extended-release tablets Forms: ED Department Discharge Referrals: Karlene Moran PA-C [Primary Care Provider] - - Discharge Summary/Plan Comment DC Time >30 min.: No - General Info Date of Service: 08/03/19 Admission Dx/Problem (Free Text: 1. UTI with suspected sepsis 2. IDDM Subjective Update: Patient feeling back to baseline overall. Complains of headache that she blames on the hospital bed/pillows making her uncomfortable. Functional Status: Reports: Pain Controlled, Tolerating Diet, Ambulating, Urinating. Denies: New Symptoms - Review of Systems General: Denies: Fever, Weakness, Fatigue, Malaise, Chills, Night Sweats HEENT: Reports: Glasses Pulmonary: Reports: No Symptoms. Denies: Cough Cardiovascular: Reports: No Symptoms. Denies: Chest Pain Gastrointestinal: Reports: No Symptoms Genitourinary: Reports: No Symptoms Musculoskeletal: Reports: No Symptoms (no acute changes from baseline) Skin: Reports: No Symptoms Neurological: Reports: Headache. Denies: Confusion, Dizziness, Paresthesia, Trouble Speaking, Difficulty Walking, Change in Speech, Gait Disturbance Psychiatric: Reports: No Symptoms - Patient Data Vitals - Most Recent: Last Vital Signs Temp 36.7 C 08/03/19 11:01 Pulse 56 L 08/03/19 11:01 Resp 15 08/03/19 11:01 BP 154/79 H 08/03/19 11:01 Pulse Ox 98 08/03/19 11:01 Weight - Most Recent: 88.587 kg I&O - Last 24 hours: Intake & Output 08/03/19 08/03/19 08/03/19 06:59 14:59 22:59 Intake Total 250 1130 Output Total 950 1100 Balance -700 30 Lab Results - Last 24 hrs: Laboratory Results - last 24 hr 08/02/19 08/02/19 08/03/19 Range/Units 16:46 20:30 07:16 WBC (4.0-10.2) K/uL RBC (3.77-5.09) M/uL Hgb (11.7-15.5) g/dL Hct (34.0-46.0) % MCV (84.0-98.0) fL MCH (28.2-33.3) pg MCHC (31.7-36.0) g/dL RDW (11.2-14.1) % Plt Count (150-350) K/uL Neut % (Auto) (45.0-80.0) % Lymph % (Auto) (10.0-50.0) % Pierce % (Auto) (2.0-14.0) % Eos % (Auto) (0.0-5.0) % Baso % (Auto) (0.0-2.0) % Neut # (Auto) (1.40-7.00) K/uL Lymph # (Auto) (0.50-3.50) K/uL Pierce # (Auto) (0.00-1.00) K/uL Eos # (Auto) (0.00-0.50) K/uL Baso # (Auto) (0.00-0.20) K/uL Sodium (136-145) mmol/L Potassium (3.5-5.1) mmol/L Chloride (98-107) mmol/L Carbon Dioxide (21.0-32.0) mmol/L BUN (7-18) mg/dL Creatinine (0.51-1.17) mg/dL Est Cr Clr Drug Dosing mL/min Estimated GFR (MDRD) mL/min Glucose (74-106) mg/dL POC Glucose 159 H 158 H 135 H (65-110) mg/dl Calcium (8.5-10.1) mg/dL Iron (50-175) ug/dL TIBC (250-450) ug/dL % Saturation Ferritin (8-388) ng/mL Total Bilirubin (0.2-1.0) mg/dL AST (15-37) U/L ALT (12-78) U/L Alkaline Phosphatase (46-116) IU/L Creatine Kinase (26-308) U/L Creatine Kinase Index (0.0-2.5) % CK-MB (CK-2) (0.00-3.60) ng/mL Troponin I (0.000-0.056) ng/mL NT-Pro-B Natriuret Pep (0-125) pg/mL Total Protein (6.4-8.2) g/dL Albumin (3.4-5.0) g/dL Vitamin B12 (193-986) pg/mL Folate (8.6-58.9) ng/mL Vancomycin Trough (10-20) ug/mL 08/03/19 08/03/19 08/03/19 Range/Units 11:30 11:30 11:30 WBC 7.1 (4.0-10.2) K/uL RBC 4.30 (3.77-5.09) M/uL Hgb 12.0 (11.7-15.5) g/dL Hct 36.7 (34.0-46.0) % MCV 85.3 (84.0-98.0) fL MCH 27.9 L (28.2-33.3) pg MCHC 32.7 (31.7-36.0) g/dL RDW 16.1 H (11.2-14.1) % Plt Count 152 (150-350) K/uL Neut % (Auto) 52.8 (45.0-80.0) % Lymph % (Auto) 36.8 (10.0-50.0) % Pierce % (Auto) 7.9 (2.0-14.0) % Eos % (Auto) 2.4 (0.0-5.0) % Baso % (Auto) 0.1 (0.0-2.0) % Neut # (Auto) 3.76 (1.40-7.00) K/uL Lymph # (Auto) 2.62 (0.50-3.50) K/uL Pierce # (Auto) 0.56 (0.00-1.00) K/uL Eos # (Auto) 0.17 (0.00-0.50) K/uL Baso # (Auto) 0.01 (0.00-0.20) K/uL Sodium 139 (136-145) mmol/L Potassium 4.6 (3.5-5.1) mmol/L Chloride 102 (98-107) mmol/L Carbon Dioxide 30.0 (21.0-32.0) mmol/L BUN 18 (7-18) mg/dL Creatinine 1.22 H (0.51-1.17) mg/dL Est Cr Clr Drug Dosing 37.97 mL/min Estimated GFR (MDRD) 45 mL/min Glucose 145 H (74-106) mg/dL POC Glucose (65-110) mg/dl Calcium 9.9 (8.5-10.1) mg/dL Iron 82 (50-175) ug/dL TIBC 319 (250-450) ug/dL % Saturation 25.53980 Ferritin 291 (8-388) ng/mL Total Bilirubin 0.3 (0.2-1.0) mg/dL AST 22 (15-37) U/L ALT 35 (12-78) U/L Alkaline Phosphatase 88 (46-116) IU/L Creatine Kinase 53 (26-308) U/L Creatine Kinase Index 3.8 H (0.0-2.5) % CK-MB (CK-2) 2.00 (0.00-3.60) ng/mL Troponin I 0.000 (0.000-0.056) ng/mL NT-Pro-B Natriuret Pep 576 H (0-125) pg/mL Total Protein 7.7 (6.4-8.2) g/dL Albumin 3.2 L (3.4-5.0) g/dL Vitamin B12 442 (193-986) pg/mL Folate 8.5 L (8.6-58.9) ng/mL Vancomycin Trough 14.2 (10-20) ug/mL CONTRERAS Results - Last 24 hrs: Microbiology 07/30/19 12:11 Aerobic Blood Culture - Preliminary Blood - Venous - Lab Draw NO GROWTH AFTER 4 DAYS Anaerobic Blood Culture - Preliminary NO GROWTH AFTER 4 DAYS 07/30/19 09:40 Aerobic Blood Culture - Preliminary Blood - Venous NO GROWTH AFTER 4 DAYS Anaerobic Blood Culture - Preliminary NO GROWTH AFTER 4 DAYS 07/29/19 21:40 Aerobic Blood Culture - Preliminary Blood - Venous NO GROWTH AFTER 4 DAYS Anaerobic Blood Culture - Preliminary NO GROWTH AFTER 4 DAYS 08/01/19 10:30 Stool Occult Blood (CONTRERAS) - Final Stool / Feces NEGATIVE OCCULT BLOOD REFERENCE RANGE: NEGATIVE Med Orders - Current: Current Medications Acetaminophen (Tylenol) 650 mg PO Q4H PRN PRN Reason: Pain (Mild 1-3)/fever Last Admin: 08/03/19 07:47 Dose: 650 mg Aspirin (Aspirin) 81 mg PO DAILY [facility] Last Admin: 08/03/19 07:47 Dose: 81 mg Enoxaparin Sodium (Lovenox) 40 mg SUBCUT DAILY [facility] Last Admin: 08/03/19 07:48 Dose: 40 mg Ceftriaxone Sodium 1 gm/ (Sodium Chloride) 100 mls @ 200 mls/hr IV Q12H [facility] Last Admin: 08/03/19 09:41 Dose: 200 mls/hr Vancomycin HCl 2 gm/ Sodium (Chloride) 500 mls @ 165 mls/hr IV Q24H [facility] Last Admin: 08/03/19 12:28 Dose: 165 mls/hr Insulin Human Regular (Humulin R) 0 unit SUBCUT BIDAC [facility]; Protocol Last Admin: 08/03/19 07:47 Dose: Not Given Isosorbide Mononitrate (Imdur) 30 mg PO QPM [facility] Last Admin: 08/02/19 17:35 Dose: 30 mg Ondansetron HCl (Zofran) 4 mg IVPUSH Q6H PRN PRN Reason: Nausea/Vomiting Sodium Chloride (Saline Flush) 10 ml FLUSH SEECOMMENT PRN PRN Reason: IV Use Last Admin: 08/03/19 12:28 Dose: 10 ml Valproic Acid (Depakene) 250 mg PO BID@08,12 [facility] Last Admin: 08/03/19 12:28 Dose: 250 mg Valproic Acid (Depakene) 500 mg PO BEDTIME [facility] Last Admin: 08/02/19 20:35 Dose: 500 mg Vancomycin HCl (Pharmacy To Dose - Vancomycin) 1 dose .XX ASDIRECTED [facility] Discontinued Medications Acetaminophen (Tylenol Extra Strength) 1,000 mg PO ONETIME ONE Stop: 07/29/19 21:53 Last Admin: 07/29/19 21:58 Dose: 1,000 mg Ceftriaxone Sodium (Rocephin) 1 gm IM ONETIME ONE Stop: 07/29/19 21:53 Last Admin: 07/29/19 23:08 Dose: Not Given Furosemide (Lasix) 60 mg IVPUSH NOW ONE Stop: 08/01/19 11:11 Last Admin: 08/01/19 11:45 Dose: 60 mg Ceftriaxone Sodium 1 gm/ (Sodium Chloride) 100 mls @ 200 mls/hr IV ONETIME ONE Stop: 07/29/19 22:27 Last Admin: 07/29/19 22:25 Dose: 200 mls/hr Sodium Chloride (Normal Saline) 1,000 mls @ 500 mls/hr IV .BOLUS ONE Stop: 07/29/19 23:58 Last Admin: 07/29/19 22:21 Dose: 500 mls/hr Magnesium Sulfate/Dextrose 1 (gm/ Premix) 100 mls @ 100 mls/hr IV ONETIME ONE Stop: 07/29/19 23:52 Last Admin: 07/29/19 23:19 Dose: 100 mls/hr Magnesium Sulfate/Dextrose 1 (gm/ Premix) 100 mls @ 100 mls/hr IV ONETIME ONE Stop: 07/30/19 02:59 Last Admin: 07/30/19 02:20 Dose: 100 mls/hr Magnesium Sulfate/Dextrose 1 (gm/ Premix) 100 mls @ 100 mls/hr IV ONETIME ONE Stop: 07/30/19 04:59 Last Admin: 07/30/19 04:07 Dose: 100 mls/hr Ceftriaxone Sodium 1 gm/ (Sodium Chloride) 100 mls @ 200 mls/hr IV Q24H [facility] Last Admin: 07/30/19 07:32 Dose: 200 mls/hr Sodium Chloride (Normal Saline) 1,000 mls @ 999 mls/hr IV .BOLUS ONE Stop: 07/30/19 09:14 Last Admin: 07/30/19 08:31 Dose: 999 mls/hr Sodium Chloride (Normal Saline) 1,000 mls @ 150 mls/hr IV ASDIRECTED [facility] Last Admin: 07/30/19 09:35 Dose: 150 mls/hr Vancomycin HCl 1.25 gm/ Sodium (Chloride) 250 mls @ 135 mls/hr IV Q24H [facility] Last Admin: 08/01/19 11:48 Dose: Not Given Ceftriaxone Sodium 1 gm/ (Sodium Chloride) 100 mls @ 200 mls/hr IV Q12H [facility] Last Admin: 07/31/19 22:07 Dose: Not Given Sodium Chloride (Normal Saline) 1,000 mls @ 80 mls/hr IV ASDIRECTED [facility] Last Admin: 08/01/19 01:48 Dose: 80 mls/hr Ceftriaxone Sodium 1 gm/ (Sodium Chloride) 100 mls @ 200 mls/hr IV ONETIME ONE Stop: 07/31/19 21:08 Last Admin: 07/31/19 20:40 Dose: 200 mls/hr Isosorbide Mononitrate (Imdur) 30 mg PO BEDTIME [facility] Ketorolac Tromethamine (Toradol) 15 mg IVPUSH ONETIME ONE Stop: 07/30/19 09:01 Last Admin: 07/30/19 10:11 Dose: 15 mg Pneumococcal Polyvalent Vaccine (Pneumovax 23) 0.5 ml IM .ONCE ONE Stop: 07/29/19 23:03 Pneumococcal Polyvalent Vaccine (Pneumovax 23) 0.5 ml IM .ONCE ONE Stop: 08/03/19 09:01 Last Admin: 08/03/19 09:41 Dose: 0.5 ml Potassium Chloride (Klor-Con M20) 40 meq PO ONETIME ONE Stop: 08/01/19 11:11 Last Admin: 08/01/19 11:46 Dose: 40 meq Sodium Chloride (Saline Flush) 10 ml FLUSH ASDIRECTED PRN PRN Reason: Keep Vein Open Last Admin: 07/30/19 07:32 Dose: 10 ml - Exam Quality Assessment: Reports: DVT Prophylaxis General: Reports: Alert, Oriented, Cooperative, No Acute Distress HEENT: Reports: Pupils Equal, Pupils Reactive, EOMI, Mucous Membr. Moist/[place] Neck: Reports: Supple Lungs: Reports: Clear to Auscultation, Normal Respiratory Effort Cardiovascular: Reports: Regular Rate, Regular Rhythm GI/Abdominal Exam: Normal Bowel Sounds, Soft, Non-Tender, No Distention (Female) Exam: Deferred Rectal (Female) Exam: Deferred Back Exam: Denies: CVA Tenderness (L), CVA Tenderness (R), Muscle Spasm, Paraspinal Tenderness, Vertebral Tenderness Extremities: Non-Tender, Normal Capillary Refill Skin: Reports: Warm, Dry Neurological: Reports: No New Focal Deficit Psy/Mental Status: Reports: Alert, Normal Affect, Normal Mood EKG INTERPRETATION EKG Date: 08/03/19 Time: 07:25 Rhythm: Other (sinus bradycardia) Rate (Beats/Min): 58 [place]: Normal P-Wave: Present QRS: Normal ST-T: Other (No acute changes suggestive of acute ischemia noted.) QT: Normal Comparison: No Change
== END 2019-08-03 16:37 | disposition home or self-care (01) | DRG 872 ==
LOC: LL.ED 21:15 → UNDOADMIN 22:20 → LL.MS 22:20
PROVIDERS: ADMIT Emergency Medicine; ATTEND Emergency Medicine
DX: A41.9 Sepsis, unspecified organism (principal); N39.0 Urinary tract infection, site not specified; E78.00 Pure hypercholesterolemia, unspecified; J45.909 Unspecified asthma, uncomplicated; R32 Unspecified urinary incontinence; E87.5 Hyperkalemia; E83.42 Hypomagnesemia; E78.5 Hyperlipidemia, unspecified; N28.9 Disorder of kidney and ureter, unspecified; D64.9 Anemia, unspecified; E88.09 Other disorders of plasma-protein metabolism, not elsewhere classified; R41.0 Disorientation, unspecified; I25.10 Atherosclerotic heart disease of native coronary artery without angina pectoris; G40.909 Epilepsy, unspecified, not intractable, without status epilepticus; J45.20 Mild intermittent asthma, uncomplicated; H54.7 Unspecified visual loss; G43.909 Migraine, unspecified, not intractable, without status migrainosus; E66.9 Obesity, unspecified; E11.65 Type 2 diabetes mellitus with hyperglycemia; R79.89 Other specified abnormal findings of blood chemistry; R00.1 Bradycardia, unspecified; Z51.5 Encounter for palliative care; Z79.82 Long term (current) use of aspirin; Z79.4 Long term (current) use of insulin; Z79.899 Other long term (current) drug therapy; Z88.0 Allergy status to penicillin; Z68.35 Body mass index [BMI] 35.0-35.9, adult
CPT/HCPCS: 36415; 80053; 83036; 83605; 85025; 87040; 99284; A9270; 71045; 71046; 80048; 80202; 81001; 82272; 82550; 82553; 82607; 82728; 82746; 82962; 83540; 83550; 83735; 83880; 84100; 84484; 85610; 85730; 86140; 87086; 90732; 93005; 96365; J0696; J1650; J1815-GY; J1885; J1940; J3370; J3475; J7030; J7040; J7050

== ENCOUNTER 2019-09-28 18:59 | Emergency (ER) | payer MEDICAID ==
[2019-09-28 19:11] VITALS: PULSE 89
[2019-09-28 19:34] VITALS: BP 154/59
--- NOTE | 2019-09-28 19:44 | EDM.PDOC ---
ED HPI GENERAL MEDICAL PROBLEM - General Chief Complaint: General Stated Complaint: cellulitis on face Time Seen by Provider: 09/28/19 19:28 Source of Information: Reports: Patient History Limitations: Reports: No Limitations - History of Present Illness INITIAL COMMENTS - FREE TEXT/NARRATIVE: Patient comes to ER concerned that she might be getting a small blister on her face. Saw Shanel Silva at clinic this morning for a scrape on the right side of her head that was sustained a few days ago that now appeared to be infected. Given Rocephin IM and placed on Keflex this past afternoon. Was told to watch for blisters. Is now concerned and points to small bump on right cheek adjacent to nose. Has no other complaints. No other changes. No fevers/chills. - Related Data Allergies Allergy/AdvReac Type Severity Reaction Status Date / Time Penicillins Allergy Rash Verified 09/28/19 19:02 Home Meds: Home Meds Aspirin 81 mg PO DAILY 07/20/16 [History] Insulin Glargine,Hum.Rec.Anlog [Tohannah Isaacs] 38 units SUBCUT DAILY 12/13/18 [History] Valproic Acid 500 mg PO BEDTIME 12/13/18 [History] Valproic Acid [Depakene] 250 mg PO BID@08,12 12/13/18 [History] Acetaminophen [Pain Relief] 650 mg PO Q4HR PRN 07/29/19 [History] Cephalexin [Keflex] 1 cap PO TID 09/28/19 [History] Past Medical History HEENT History: Reports: Impaired Vision, Other (See Below) Other HEENT History: wears glasses Cardiovascular History: Reports: High Cholesterol Respiratory History: Reports: Asthma Gastrointestinal History: Reports: None Genitourinary History: Reports: Urinary Incontinence, Other (See Below) Other Genitourinary History: occasional bladder infections, Musculoskeletal History: Reports: Other (See Below) Other Musculoskeletal History: Lt ankle fracture Neurological History: Reports: Migraines, Seizure, Other (See Below) Other Neuro History: epilepsy Psychiatric History: Reports: Other (See Below) Endocrine/Metabolic History: Reports: Diabetes, Type II, IDDM, Obesity/BMI 30+ Hematologic History: Reports: None Immunologic History: Reports: None Oncologic (Cancer) History: Reports: None Dermatologic History: Reports: Eczema, Other (See Below) (rosacea) - Infectious Disease History Infectious Disease History: Reports: Chicken Pox, Influenza - Past Surgical History HEENT Surgical History: Reports: Other (See Below) Respiratory Surgical History: Reports: None GI Surgical History: Reports: None Musculoskeletal Surgical History: Reports: Carpal Tunnel Oncologic Surgical History: Reports: None Social & Family History - Tobacco Use Smoking Status *Q: Former Smoker Years of Tobacco use: 36 Used Tobacco, but Quit: Yes Month/Year Tobacco Last Used: 2009 Second Hand Smoke Exposure: No - Caffeine Use Caffeine Use: Reports: None - Recreational Drug Use Recreational Drug Use: No ED ROS GENERAL - Review of Systems Review Of Systems: Comprehensive ROS is negative, except as noted in HPI. ED EXAM, GENERAL - Physical Exam Exam: See Below Exam Limited By: No Limitations General Appearance: Alert, WD/WN, No Apparent Distress, Obese Eye Exam: Bilateral Eye: EOMI, PERRL Ears: Normal External Exam Nose: No: Nasal Deformity, Nasal Swelling Throat/Mouth: Normal Lips, Normal Voice, No Airway Compromise Head: Other (very mild erythema and puffiness just lateral to right eye. Small break in skin noted there, patient says that is healing area from fall. No drainage noted. Also mild erythema right scalp superiorly, no break in skin noted/no vesicles/pustules. ) Neck: Supple Respiratory/Chest: No Respiratory Distress, Lungs Clear, Normal Breath Sounds, No Accessory Muscle Use Cardiovascular: Regular Rate, Rhythm, No Murmur GI/Abdominal: Soft, Non-Tender Extremities: Normal Capillary Refill Neurological: Alert, Oriented Psychiatric: Normal Affect, Normal Mood Skin Exam: Warm, Dry, Other (Skin findings as noted above. Also has mild erythema/dryness/bumpy and thickened skin in glabellar area, bilateral cheeks/ chin/nose. No vesicles or pustules. ) Course - Vital Signs Last Recorded V/S: Last Vital Signs Temp 36.9 C 09/28/19 19:06 Pulse 89 09/28/19 19:06 Resp 16 09/28/19 19:06 BP 154/59 H 09/28/19 19:34 Pulse Ox 99 09/28/19 19:06 - Re-Assessments/Exams Free Text/Narrative Re-Assessment/Exam: No noted vesicles/pustules. Patient pointed to the area just adjacent to the right nostril. As noted in the exam, she does have changes in her skin consistent with Rosacea. Has been outside today/yesterday in subzero temps which is know trigger for worsening Rosacea symptoms. It appears that that is what she mistook for blister formation. Contact made with Azael to see why blisters were a concern this afternoon during patient education. It turns out that there was precautionary concern that since patient's redness/tenderness did not cross midline that this was perhaps due to shingles and not related to recent fall. Pt was reassured that no blister formation formally identified. We spent time reviewing shingles as well as rosacea. She is to continue her antibiotics as prescribed and should follow up for recheck at clinic tomorrow or later this week if she has concerns about worsening symptoms or if no improvement is noted within 48-72 hours. Patient is happy and agreeable with plan. 09/28/19 19:54 BP elevated upon arrival/much improved after speaking with patient. Feel that much of previous elevation was related to anxiety. Departure - Departure Time of Disposition: 19:42 Disposition: Home, Self-Care 01 Condition: Good Clinical Impression: Cellulitis Qualifiers: Site of cellulitis: face Qualified Code(s): L03.211 - Cellulitis of face - Discharge Information *PRESCRIPTION DRUG MONITORING PROGRAM REVIEWED*: Not Applicable *COPY OF PRESCRIPTION DRUG MONITORING REPORT IN PATIENT GREY: Not Applicable Instructions: Rosacea Referrals: Shanel Feliz PA [Primary Care Provider] - Forms: ED Department Discharge Additional Instructions: Keep taking your medications/antibiotic. Shanel will gladly recheck you tomorrow if you have any further concerns. Follow up if you don't see much improvement with the swelling within 2-3 days. Sepsis Event Note - Evaluation Sepsis Screening Result: No Definite Risk - Focused Exam Vital Signs: Vital Signs Temp Pulse Resp BP Pulse Ox 09/28/19 19:34 154/59 H 09/28/19 19:06 36.9 C 89 16 191/90 H 99 Date Exam was Performed: 09/28/19 Time Exam was Performed: 19:44
== END 2019-09-28 19:50 | disposition home or self-care (01) ==
LOC: LL.ED 18:59
DX: L03.211 Cellulitis of face (principal); J45.909 Unspecified asthma, uncomplicated; E11.9 Type 2 diabetes mellitus without complications; E66.9 Obesity, unspecified; Z87.891 Personal history of nicotine dependence; Z88.0 Allergy status to penicillin; Z79.82 Long term (current) use of aspirin; Z79.4 Long term (current) use of insulin; Z79.899 Other long term (current) drug therapy
CPT/HCPCS: 99283

== ENCOUNTER 2019-10-24 09:03 | Emergency (ER) | payer MEDICAID ==
[2019-10-24 09:07] VITALS: BP 136/73; PULSE 62
--- NOTE | 2019-10-24 09:49 | EDM.PDOC ---
ED HPI GENERAL MEDICAL PROBLEM - General Chief Complaint: General Stated Complaint: confusion, dizziness Time Seen by Provider: 10/24/19 09:27 Source of Information: Reports: Patient History Limitations: Reports: No Limitations - History of Present Illness INITIAL COMMENTS - FREE TEXT/NARRATIVE: Patient brought in by EMS due to complaint of mild dizziness/questionable mild confusion. Patient is interacting normally with staff (staff very familiar with patient). Patient felt a bit hot/cold last night but denies having any other acute changes during ROS. Has history of frequent UTIs. Denies frequency/burning/hematuria/urgency. Says she was asymptomatic when she had last UTI - Related Data Allergies Allergy/AdvReac Type Severity Reaction Status Date / Time Penicillins Allergy Rash Verified 10/24/19 09:07 Home Meds: Home Meds Aspirin 81 mg PO DAILY 07/20/16 [History] Insulin Glargine,Hum.Rec.Anlog [Toutiffany Solostar] 38 units SUBCUT DAILY 12/13/18 [History] Valproic Acid 500 mg PO BEDTIME 12/13/18 [History] Valproic Acid [Depakene] 250 mg PO BID@08,12 12/13/18 [History] Acetaminophen [Pain Relief] 650 mg PO Q4HR PRN 07/29/19 [History] Cephalexin [Keflex] 1 cap PO TID 09/28/19 [History] Magnesium Oxide [Magnesium] 400 mg PO BID #60 capsule 10/24/19 [Rx] Past Medical History HEENT History: Reports: Impaired Vision, Other (See Below) Other HEENT History: wears glasses Cardiovascular History: Reports: High Cholesterol Respiratory History: Reports: Asthma Gastrointestinal History: Reports: None Genitourinary History: Reports: Urinary Incontinence, Other (See Below) Other Genitourinary History: occasional bladder infections, Musculoskeletal History: Reports: Other (See Below) Other Musculoskeletal History: Lt ankle fracture Neurological History: Reports: Migraines, Seizure, Other (See Below) Other Neuro History: epilepsy Psychiatric History: Reports: Other (See Below) Endocrine/Metabolic History: Reports: Diabetes, Type II, IDDM, Obesity/BMI 30+ Hematologic History: Reports: None Immunologic History: Reports: None Oncologic (Cancer) History: Reports: None Dermatologic History: Reports: Eczema, Other (See Below) (rosacea) - Infectious Disease History Infectious Disease History: Reports: Chicken Pox, Influenza - Past Surgical History HEENT Surgical History: Reports: Other (See Below) Respiratory Surgical History: Reports: None GI Surgical History: Reports: None Musculoskeletal Surgical History: Reports: Carpal Tunnel Oncologic Surgical History: Reports: None Social & Family History - Caffeine Use Caffeine Use: Reports: None ED ROS GENERAL - Review of Systems Review Of Systems: Comprehensive ROS is negative, except as noted in HPI. ED EXAM, GENERAL - Physical Exam Exam: See Below Exam Limited By: No Limitations General Appearance: Alert, No Apparent Distress, Obese Eye Exam: Bilateral Eye: EOMI, PERRL Ears: Hearing Grossly Normal Nose: No: Nasal Deformity, Nasal Swelling, Nasal Drainage Throat/Mouth: Normal Lips, Normal Voice, No Airway Compromise Head: Atraumatic, Normocephalic Neck: Normal Inspection, Supple, Non-Tender, Full Range of Motion Respiratory/Chest: No Respiratory Distress, Lungs Clear, Normal Breath Sounds, No Accessory Muscle Use Cardiovascular: Regular Rate, Rhythm, No Murmur GI/Abdominal: Normal Bowel Sounds, Soft, Non-Tender, No Distention (Female) Exam: Deferred Rectal (Female) Exam: Deferred Back Exam: No: CVA Tenderness (L), CVA Tenderness (R), Muscle Spasm Extremities: Normal Range of Motion, Non-Tender, Normal Capillary Refill, Pedal Edema (mild, bilateral) Neurological: Alert, Oriented, Normal Cognition, Normal Gait Psychiatric: Normal Affect, Normal Mood Skin Exam: Warm, Dry, Intact, Normal Color EKG INTERPRETATION EKG Date: 10/24/19 Time: 10:26 Rhythm: Other (Sinus bradycardia) Rate (Beats/Min): 57 [place]: Normal P-Wave: Present QRS: Normal ST-T: Other (overall flattened morphology, similar pattern noted previous EKG) QT: Normal Comparison: No Change Course - Vital Signs Last Recorded V/S: Last Vital Signs Temp 36.8 C 10/24/19 09:04 Pulse 62 10/24/19 09:04 Resp 20 10/24/19 09:04 BP 136/73 10/24/19 09:04 Pulse Ox 94 L 10/24/19 09:04 - Orders/Labs/Meds Orders: Active Orders 24 hr Category Date Time Status EKG Documentation Completion [RC] ASDIRECTED Care 10/24/19 10:12 Ordered Saline Lock Insert [OM.PC] Routine Oth 10/24/19 10:12 Ordered Labs: Laboratory Tests 10/24/19 10/24/19 10/24/19 Range/Units 09:34 09:40 09:40 WBC 7.0 (4.0-10.2) K/uL RBC 4.13 (3.77-5.09) M/uL Hgb 11.7 (11.7-15.5) g/dL Hct 36.5 (34.0-46.0) % MCV 88.4 (84.0-98.0) fL MCH 28.3 (28.2-33.3) pg MCHC 32.1 (31.7-36.0) g/dL RDW 15.4 H (11.2-14.1) % Plt Count 130 L (150-350) K/uL Neut % (Auto) 48.2 (45.0-80.0) % Lymph % (Auto) 39.1 (10.0-50.0) % Winn % (Auto) 9.9 (2.0-14.0) % Eos % (Auto) 2.7 (0.0-5.0) % Baso % (Auto) 0.1 (0.0-2.0) % Neut # (Auto) 3.34 (1.40-7.00) K/uL Lymph # (Auto) 2.72 (0.50-3.50) K/uL Winn # (Auto) 0.69 (0.00-1.00) K/uL Eos # (Auto) 0.19 (0.00-0.50) K/uL Baso # (Auto) 0.01 (0.00-0.20) K/uL Sodium 140 (136-145) mmol/L Potassium 5.6 H* (3.5-5.1) mmol/L Chloride 104 (98-107) mmol/L Carbon Dioxide 25.8 (21.0-32.0) mmol/L BUN 24 H (7-18) mg/dL Creatinine 1.36 H (0.51-1.17) mg/dL Est Cr Clr Drug Dosing 32.78 mL/min Estimated GFR (MDRD) 40 mL/min Glucose 187 H (74-106) mg/dL Lactic Acid (0.4-2.0) mmol/L Calcium 9.5 (8.5-10.1) mg/dL Magnesium (1.8-2.4) mg/dL Total Bilirubin 0.3 (0.2-1.0) mg/dL AST 23 (15-37) U/L ALT 24 (12-78) U/L Alkaline Phosphatase 84 (46-116) IU/L Total Protein 8.2 (6.4-8.2) g/dL Albumin 3.6 (3.4-5.0) g/dL Specimen Type Urinblad Urine Color Yellow Urine Appearance Clear Urine pH 6.0 (5.0-9.0) Ur Specific [place] 1.020 (1.005-1.030) Urine Protein Negative (NEGATIVE) mg/dL Urine Glucose (UA) 100 H (NEGATIVE) mg/dL Urine Ketones Negative (NEGATIVE) mg/dL Urine Occult Blood Negative (NEGATIVE) Urine Nitrite Negative (NEGATIVE) Urine Bilirubin Negative (NEGATIVE) Urine Urobilinogen 0.2 (0.2-1.0) E.U./dL Ur Leukocyte Esterase Negative (NEGATIVE) Urine RBC 0-5 /HPF Urine WBC 0-5 /HPF Ur Epithelial Cells Few /LPF Urine Bacteria Few (NONE TO FEW) /HPF 10/24/19 10/24/19 Range/Units 09:40 09:40 WBC (4.0-10.2) K/uL RBC (3.77-5.09) M/uL Hgb (11.7-15.5) g/dL Hct (34.0-46.0) % MCV (84.0-98.0) fL MCH (28.2-33.3) pg MCHC (31.7-36.0) g/dL RDW (11.2-14.1) % Plt Count (150-350) K/uL Neut % (Auto) (45.0-80.0) % Lymph % (Auto) (10.0-50.0) % Winn % (Auto) (2.0-14.0) % Eos % (Auto) (0.0-5.0) % Baso % (Auto) (0.0-2.0) % Neut # (Auto) (1.40-7.00) K/uL Lymph # (Auto) (0.50-3.50) K/uL Winn # (Auto) (0.00-1.00) K/uL Eos # (Auto) (0.00-0.50) K/uL Baso # (Auto) (0.00-0.20) K/uL Sodium (136-145) mmol/L Potassium (3.5-5.1) mmol/L Chloride (98-107) mmol/L Carbon Dioxide (21.0-32.0) mmol/L BUN (7-18) mg/dL Creatinine (0.51-1.17) mg/dL Est Cr Clr Drug Dosing mL/min Estimated GFR (MDRD) mL/min Glucose (74-106) mg/dL Lactic Acid 1.4 (0.4-2.0) mmol/L Calcium (8.5-10.1) mg/dL Magnesium 1.4 L (1.8-2.4) mg/dL Total Bilirubin (0.2-1.0) mg/dL AST (15-37) U/L ALT (12-78) U/L Alkaline Phosphatase (46-116) IU/L Total Protein (6.4-8.2) g/dL Albumin (3.4-5.0) g/dL Specimen Type Urine Color Urine Appearance Urine pH (5.0-9.0) Ur Specific [place] (1.005-1.030) Urine Protein (NEGATIVE) mg/dL Urine Glucose (UA) (NEGATIVE) mg/dL Urine Ketones (NEGATIVE) mg/dL Urine Occult Blood (NEGATIVE) Urine Nitrite (NEGATIVE) Urine Bilirubin (NEGATIVE) Urine Urobilinogen (0.2-1.0) E.U./dL Ur Leukocyte Esterase (NEGATIVE) Urine RBC /HPF Urine WBC /HPF Ur Epithelial Cells /LPF Urine Bacteria (NONE TO FEW) /HPF Meds: Medications Discontinued Medications Generic Name Dose Route Start Last Admin Trade Name Freq PRN Reason Stop Dose Admin Sodium Chloride 1,000 mls @ 999 mls/hr 10/24/19 10:12 10/24/19 10:16 Normal Saline IV 10/24/19 11:12 999 mls/hr .BOLUS ONE Administration Sodium Chloride 10 ml 10/24/19 10:11 Saline Flush FLUSH ASDIRECTED PRN Keep Vein Open Sodium Polystyrene Sulfonate 15 gm 10/24/19 11:22 10/24/19 11:38 Kayexalate PO 10/24/19 11:23 15 gm ONETIME ONE Administration - Re-Assessments/Exams Free Text/Narrative Re-Assessment/Exam: 10/24/19 09:48 Basic labs/UA ordered. Non-focal exam. Patient interacting normally at this time. No confusion/new cognitive deficit noted. K elevated. IV fluid given/Kayexalate single dose PO. EKG unremarkable. Precautions reviewed. Plan is to have patient rechecked in 48 hours at clinic/ have K level redrawn. Patient agreeable with plan. After discharge Magnesium was added to lab work and noted to be low. Patient called by nurses with result and instructed to bean picker Magnesium from her pharmacy, 400mg po BID. Level should be rechecked with the K recheck in a few weeks and dose adjuste as needed. Departure - Departure Time of Disposition: 11:30 Disposition: Home, Self-Care 01 Condition: Good Clinical Impression: Hyperkalemia, Renal insufficiency, Hypomagnesemia - Discharge Information *PRESCRIPTION DRUG MONITORING PROGRAM REVIEWED*: Not Applicable *COPY OF PRESCRIPTION DRUG MONITORING REPORT IN PATIENT GREY: Not Applicable Prescriptions: Magnesium Oxide [Magnesium] 400 mg PO BID #60 capsule Instructions: Hyperkalemia, [id number] Referrals: PCP,None [Primary Care Provider] - Forms: ED Department Discharge Additional Instructions: See if you have any other changes over the weekend and follow up as needed if there are problems. Have your potassium level rechecked on Saturday, two days from now, and see if it has normalized. If not, make a plan with the clinic for additional treatment and follow up . Recommend recheck of potassium again in a few weeks if it is normal Saturday, and again in a month. Rx for Mag Oxide 400mg BID sent to pharmacy. Mag recheck recommended in a few weeks when K is rechecked. Sepsis Event Note - Evaluation Sepsis Screening Result: No Definite Risk - Focused Exam Vital Signs: Vital Signs Temp Pulse Resp BP Pulse Ox 10/24/19 09:04 36.8 C 62 20 136/73 94 L Date Exam was Performed: 10/24/19 Time Exam was Performed: 12:33 - My Orders Last 24 Hours: My Active Orders 10/24/19 10:12 EKG Documentation Completion [RC] ASDIRECTED Saline Lock Insert [OM.PC] Routine - Assessment/Plan Last 24 Hours: My Active Orders 10/24/19 10:12 EKG Documentation Completion [RC] ASDIRECTED Saline Lock Insert [OM.PC] Routine
[2019-10-24] MEDS ORDERED: Sodium Chloride 0.9% 10 ML Syringe FLUSH PRN (10:11)
[2019-10-24] MEDS ORDERED: Sodium Chloride 0.9% 1,000 ML IV ONE (10:12)
[2019-10-24] MEDS ORDERED: Sodium Polystyrene Sulfonate 15 GM/60 ML Susp 60 ML Bot PO ONE (11:22)
== END 2019-10-24 11:41 | disposition home or self-care (01) ==
LOC: LL.ED 09:03
DX: E87.5 Hyperkalemia (principal); E83.42 Hypomagnesemia; N28.9 Disorder of kidney and ureter, unspecified; J45.909 Unspecified asthma, uncomplicated; E11.9 Type 2 diabetes mellitus without complications; E66.9 Obesity, unspecified; Z68.36 Body mass index [BMI] 36.0-36.9, adult; Z88.0 Allergy status to penicillin; Z79.82 Long term (current) use of aspirin; Z79.4 Long term (current) use of insulin; Z79.899 Other long term (current) drug therapy
CPT/HCPCS: 36415; 80053; 81001; 83605; 83735; 85025; 93005; 96360; 99284-25; A9270-GY; J7030

== ENCOUNTER 2019-11-26 14:42 | Emergency (ER) | payer MEDICAID ==
[2019-11-26] MEDS: Sodium Chloride 0.9% 1,000 ML IV ONE (15:12)
--- NOTE | 2019-11-26 17:17 | EDM.PDOC ---
ED HPI GENERAL MEDICAL PROBLEM - General Chief Complaint: General Stated Complaint: back pain, abnormal labs, cough, decreased sugars Time Seen by Provider: 11/26/19 14:54 Source of Information: Reports: Patient, Other (Clinic provider) History Limitations: Reports: Altered Mental Status, Other (Weakness, confusion , hypotension) - History of Present Illness INITIAL COMMENTS - FREE TEXT/NARRATIVE: Pt seen in clinic and sent to ER for weakness, confusion, hypotension. Pt has hx/o recurrent UTI's in past No known trauma No fever Dry cough No N/V/D No chest pain Some SOB Onset: Gradual Location: Reports: Generalized Back Pain Score (Numeric/FACES): 7 - Related Data Allergies Allergy/AdvReac Type Severity Reaction Status Date / Time Penicillins Allergy Rash Verified 11/26/19 14:46 Home Meds: Home Meds Aspirin 81 mg PO DAILY 07/20/16 [History] Insulin Glargine,Hum.Rec.Anlog [Toujeo Solostar] 38 units SUBCUT DAILY 12/13/18 [History] Valproic Acid 500 mg PO BEDTIME 12/13/18 [History] Valproic Acid [Depakene] 250 mg PO BID@08,12 12/13/18 [History] Acetaminophen [Pain Relief] 650 mg PO Q4HR PRN 07/29/19 [History] Cephalexin [Keflex] 1 cap PO TID 09/28/19 [History] Magnesium Oxide [Magnesium] 400 mg PO BID #60 capsule 10/24/19 [Rx] Past Medical History HEENT History: Reports: Impaired Vision, Other (See Below) Other HEENT History: wears glasses Cardiovascular History: Reports: High Cholesterol Respiratory History: Reports: Asthma Gastrointestinal History: Reports: None Genitourinary History: Reports: Urinary Incontinence, Other (See Below) Other Genitourinary History: occasional bladder infections, Musculoskeletal History: Reports: Other (See Below) Other Musculoskeletal History: Lt ankle fracture Neurological History: Reports: Migraines, Seizure, Other (See Below) Other Neuro History: epilepsy Psychiatric History: Reports: Other (See Below) Endocrine/Metabolic History: Reports: Diabetes, Type II, IDDM, Obesity/BMI 30+ Hematologic History: Reports: None Immunologic History: Reports: None Oncologic (Cancer) History: Reports: None Dermatologic History: Reports: Eczema, Other (See Below) (rosacea) - Infectious Disease History Infectious Disease History: Reports: Chicken Pox, Influenza - Past Surgical History HEENT Surgical History: Reports: Other (See Below) Respiratory Surgical History: Reports: None GI Surgical History: Reports: None Musculoskeletal Surgical History: Reports: Carpal Tunnel Oncologic Surgical History: Reports: None Social & Family History - Caffeine Use Caffeine Use: Reports: None ED ROS GENERAL - Review of Systems Review Of Systems: See Below Constitutional: Reports: Malaise, Weakness, Fatigue HEENT: Reports: No Symptoms Respiratory: Reports: Cough Cardiovascular: Reports: No Symptoms GI/Abdominal: Reports: No Symptoms Skin: Reports: No Symptoms Neurological: Reports: Confusion, Weakness ED EXAM, GENERAL - Physical Exam Exam: See Below Exam Limited By: Other (Minimally confused) General Appearance: Lethargic Throat/Mouth: Normal Oropharynx Neck: Supple Respiratory/Chest: Decreased Breath Sounds Cardiovascular: Regular Rate, Rhythm GI/Abdominal: Soft, Non-Tender Extremities: Pedal Edema Neurological: Slow to Respond Psychiatric: Depressed Mood, Flat Affect Course - Orders/Labs/Meds Orders: Active Orders 24 hr Category Date Time Status EKG Documentation Completion [RC] ASDIRECTED Care 11/26/19 16:40 Ordered Chest 1V Frontal [CR] Stat Exams 11/26/19 14:55 Taken Head wo Cont [CT] Stat Exams 11/26/19 14:56 Taken CULTURE BLOOD [BC] Stat Lab 11/26/19 15:11 Received CULTURE BLOOD [BC] Stat Lab 11/26/19 15:20 Received CULTURE URINE [RM] Stat Lab 11/26/19 16:16 Received Meropenem [Merrem] 500 mg Med 11/26/19 17:04 Ordered Sodium Chloride 0.9% [Normal Saline] 100 ml IV ONETIME Vancomycin 1 gm Med 11/26/19 16:59 Ordered Sodium Chloride 0.9% [Normal Saline] 250 ml IV ONETIME Blood Culture x2 Reflex Set [OM.PC] Stat Oth 11/26/19 14:55 Ordered Isolation [COMM] Routine Oth 11/26/19 14:56 Active EKG 12 Lead [EK] Routine Ther 11/26/19 16:40 Ordered Medication Orders Vancomycin HCl 1 gm/ Sodium (Chloride) 250 mls @ 165 mls/hr IV ONETIME ONE Stop: 11/26/19 18:29 Meropenem 500 mg/ Sodium (Chloride) 100 mls @ 200 mls/hr IV ONETIME ONE Stop: 11/26/19 17:33 Labs: Laboratory Tests 11/26/19 11/26/19 11/26/19 Range/Units 15:11 15:11 15:11 WBC 8.3 (4.0-10.2) K/uL RBC 4.14 (3.77-5.09) M/uL Hgb 11.8 (11.7-15.5) g/dL Hct 36.2 (34.0-46.0) % MCV 87.4 (84.0-98.0) fL MCH 28.5 (28.2-33.3) pg MCHC 32.6 (31.7-36.0) g/dL RDW 16.1 H (11.2-14.1) % Plt Count 119 L (150-350) K/uL Neut % (Auto) 51.9 (45.0-80.0) % Lymph % (Auto) 27.2 (10.0-50.0) % [place] % (Auto) 10.8 (2.0-14.0) % Eos % (Auto) 10.1 H (0.0-5.0) % Baso % (Auto) 0.0 (0.0-2.0) % Neut # (Auto) 4.31 (1.40-7.00) K/uL Lymph # (Auto) 2.26 (0.50-3.50) K/uL [place] # (Auto) 0.90 (0.00-1.00) K/uL Eos # (Auto) 0.84 H (0.00-0.50) K/uL Baso # (Auto) 0.00 (0.00-0.20) K/uL Sodium 136 (136-145) mmol/L Potassium 5.9 H* (3.5-5.1) mmol/L Chloride 102 (98-107) mmol/L Carbon Dioxide 25.8 (21.0-32.0) mmol/L BUN 88 H D (7-18) mg/dL Creatinine 3.36 H* D (0.51-1.17) mg/dL Est Cr Clr Drug Dosing 13.27 mL/min Estimated GFR (MDRD) 14 mL/min Glucose 181 H (74-106) mg/dL Lactic Acid 1.6 (0.4-2.0) mmol/L Calcium 9.1 (8.5-10.1) mg/dL Total Bilirubin 0.4 (0.2-1.0) mg/dL AST 14 L (15-37) U/L ALT 28 (12-78) U/L Alkaline Phosphatase 92 (46-116) IU/L Total Protein 8.2 (6.4-8.2) g/dL Albumin 3.4 (3.4-5.0) g/dL Specimen Type Urine Color Urine Appearance Urine pH (5.0-9.0) Ur Specific [place] (1.005-1.030) Urine Protein (NEGATIVE) mg/dL Urine Glucose (UA) (NEGATIVE) mg/dL Urine Ketones (NEGATIVE) mg/dL Urine Occult Blood (NEGATIVE) Urine Nitrite (NEGATIVE) Urine Bilirubin (NEGATIVE) Urine Urobilinogen (0.2-1.0) E.U./dL Ur Leukocyte Esterase (NEGATIVE) Urine RBC /HPF Urine WBC /HPF Ur Epithelial Cells /LPF Urine Bacteria (NONE TO FEW) /HPF 11/26/19 Range/Units 16:16 WBC (4.0-10.2) K/uL RBC (3.77-5.09) M/uL Hgb (11.7-15.5) g/dL Hct (34.0-46.0) % MCV (84.0-98.0) fL MCH (28.2-33.3) pg MCHC (31.7-36.0) g/dL RDW (11.2-14.1) % Plt Count (150-350) K/uL Neut % (Auto) (45.0-80.0) % Lymph % (Auto) (10.0-50.0) % [place] % (Auto) (2.0-14.0) % Eos % (Auto) (0.0-5.0) % Baso % (Auto) (0.0-2.0) % Neut # (Auto) (1.40-7.00) K/uL Lymph # (Auto) (0.50-3.50) K/uL [place] # (Auto) (0.00-1.00) K/uL Eos # (Auto) (0.00-0.50) K/uL Baso # (Auto) (0.00-0.20) K/uL Sodium (136-145) mmol/L Potassium (3.5-5.1) mmol/L Chloride (98-107) mmol/L Carbon Dioxide (21.0-32.0) mmol/L BUN (7-18) mg/dL Creatinine (0.51-1.17) mg/dL Est Cr Clr Drug Dosing mL/min Estimated GFR (MDRD) mL/min Glucose (74-106) mg/dL Lactic Acid (0.4-2.0) mmol/L Calcium (8.5-10.1) mg/dL Total Bilirubin (0.2-1.0) mg/dL AST (15-37) U/L ALT (12-78) U/L Alkaline Phosphatase (46-116) IU/L Total Protein (6.4-8.2) g/dL Albumin (3.4-5.0) g/dL Specimen Type . Urine Color Yellow Urine Appearance Clear Urine pH 5.0 (5.0-9.0) Ur Specific [place] 1.020 (1.005-1.030) Urine Protein Trace H (NEGATIVE) mg/dL Urine Glucose (UA) Negative (NEGATIVE) mg/dL Urine Ketones Trace H (NEGATIVE) mg/dL Urine Occult Blood Trace-intact H (NEGATIVE) Urine Nitrite Negative (NEGATIVE) Urine Bilirubin Small H (NEGATIVE) Urine Urobilinogen 0.2 (0.2-1.0) E.U./dL Ur Leukocyte Esterase Small H (NEGATIVE) Urine RBC 0-5 /HPF Urine WBC 10-20 H /HPF Ur Epithelial Cells Many H /LPF Urine Bacteria Moderate H (NONE TO FEW) /HPF Meds: Medications Generic Name Dose Route Start Last Admin Trade Name Freq PRN Reason Stop Dose Admin Vancomycin HCl 1 gm/ Sodium 250 mls @ 165 mls/hr 11/26/19 16:59 Chloride IV 11/26/19 18:29 ONETIME ONE Meropenem 500 mg/ Sodium 100 mls @ 200 mls/hr 11/26/19 17:04 Chloride IV 11/26/19 17:33 ONETIME ONE Discontinued Medications Generic Name Dose Route Start Last Admin Trade Name Freq PRN Reason Stop Dose Admin Sodium Chloride 1,000 mls @ 1,000 mls/hr 11/26/19 14:57 11/26/19 15:12 Normal Saline IV 11/26/19 15:56 1,000 mls/hr .BOLUS ONE Administration Levofloxacin/Dextrose 500 mg/ 100 mls @ 100 mls/hr 11/26/19 16:55 Premix IV 11/26/19 17:54 ONETIME ONE - Re-Assessments/Exams Free Text/Narrative Re-Assessment/Exam: 11/26/19 17:14 See lab and xray reports BUN/Cr on 10/24/19 was 24/1.3 Pt with IVF NS in ER D/ W Dr Santiago and On-call ICU physician [facility] ER and ICU Will give IV NS , IV Vanco, IV Meropenem and begin Levophed for persistent hypotension Transfer to [facility] ICU via EMS Departure - Departure Time of Disposition: 17:30 Disposition: DC/Tfer to [facility] 02 Clinical Impression: JAQUELINE (acute kidney injury), Hyperkalemia Hypotension Qualifiers: Hypotension type: unspecified hypotension type Qualified Code(s): I95.9 - Hypotension, unspecified - Discharge Information *PRESCRIPTION DRUG MONITORING PROGRAM REVIEWED*: Not Applicable *COPY OF PRESCRIPTION DRUG MONITORING REPORT IN PATIENT GREY: Not Applicable Referrals: PCP,None [Primary Care Provider] - - My Orders Last 24 Hours: My Active Orders 11/26/19 14:55 Chest 1V Frontal [CR] Stat Blood Culture x2 Reflex Set [OM.PC] Stat 11/26/19 14:56 Head wo Cont [CT] Stat Isolation [COMM] Routine 11/26/19 15:11 CULTURE BLOOD [BC] Stat 11/26/19 15:20 CULTURE BLOOD [BC] Stat 11/26/19 16:16 CULTURE URINE [RM] Stat 11/26/19 16:40 EKG Documentation Completion [RC] ASDIRECTED EKG 12 Lead [EK] Routine 11/26/19 16:59 Vancomycin 1 gm Sodium Chloride 0.9% [Normal Saline] 250 ml IV ONETIME 11/26/19 17:04 Meropenem [Merrem] 500 mg Sodium Chloride 0.9% [Normal Saline] 100 ml IV ONETIME - Assessment/Plan Last 24 Hours: My Active Orders 11/26/19 14:55 Chest 1V Frontal [CR] Stat Blood Culture x2 Reflex Set [OM.PC] Stat 11/26/19 14:56 Head wo Cont [CT] Stat Isolation [COMM] Routine 11/26/19 15:11 CULTURE BLOOD [BC] Stat 11/26/19 15:20 CULTURE BLOOD [BC] Stat 11/26/19 16:16 CULTURE URINE [RM] Stat 11/26/19 16:40 EKG Documentation Completion [RC] ASDIRECTED EKG 12 Lead [EK] Routine 11/26/19 16:59 Vancomycin 1 gm Sodium Chloride 0.9% [Normal Saline] 250 ml IV ONETIME 11/26/19 17:04 Meropenem [Merrem] 500 mg Sodium Chloride 0.9% [Normal Saline] 100 ml IV ONETIME
[2019-11-26] MEDS: Norepinephrine 4 MG in Dextrose 5% in Water 246 ML IV SCH ×2 (17:20)
[2019-11-26] MEDS: Meropenem 500 MG in Sodium Chloride 0.9% 100 ML IV ONE (17:35)
[2019-11-26] MEDS: Levofloxacin/Dextrose 5%-Water 500 MG in Premix Bag 1 BAG IV ONE (17:41)
[2019-11-26 18:55] VITALS: BP 97/59; PULSE 66
== END 2019-11-26 18:05 ==
LOC: LL.ED 14:42
DX: I95.9 Hypotension, unspecified (principal); N17.9 Acute kidney failure, unspecified; E87.5 Hyperkalemia; E78.00 Pure hypercholesterolemia, unspecified; J45.909 Unspecified asthma, uncomplicated; E11.9 Type 2 diabetes mellitus without complications; E66.9 Obesity, unspecified; Z68.36 Body mass index [BMI] 36.0-36.9, adult; Z88.0 Allergy status to penicillin; Z79.82 Long term (current) use of aspirin; Z79.4 Long term (current) use of insulin; Z79.899 Other long term (current) drug therapy
CPT/HCPCS: 36415; 70450; 71045; 80053; 81001; 83605; 85025; 87040; 87077; 87086; 87186; 87804; 93005; 96361; 96365; 96368; 99285; J2185; J3370; J7030; J7050; J7060

== ENCOUNTER 2019-12-02 00:51 | Emergency (ER) | payer MEDICAID ==
--- NOTE | 2019-12-02 01:06 | EDM.PDOC ---
ED HPI GENERAL MEDICAL PROBLEM - General Chief Complaint: General Stated Complaint: confusion Time Seen by Provider: 12/02/19 01:00 Source of Information: Reports: Patient, EMS, Old Records ([facility] chart/EMR), Other ([facility] EMR). 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 Patient woke up at about midnight this evening and was standing over her son's bed. Her son felt that she was somewhat confused and called 911. The paramedics found no abnormalities at the scene with the patient back at her normal baseline. Note that the patient was recently hospitalized at [facility] in [place] from 11/25 through 11/30/19 for influenza A and a UTI with current Ceftin therapy. The patient denies any current gross hematuria, colic, or other UTI symptoms. The patient also denies any recent fever, cough, wheezing, dyspnea, etc.. No recent history of abdominal pain, heartburn, nausea, diarrhea, melena, gross hematochezia, or any food intolerance, including fatty foods, etc.. The patient denies any chest pain /pressure, heart flutter, dizziness, orthostasis, orthopnea, diaphoresis, paresthesias, recent decreased exercise tolerance, or any other anginal-type symptoms. No history of recent headaches, visual changes, diplopia, change in mental status, or other change in neurological status. She is a somewhat poor historian secondary to her baseline cognitive impairment. She denies any pain or discomfort. Onset: Today, Unknown/Unsure Onset Date: 12/02/19 Onset Time: 00:00 Duration: Resolved Prior to Arrival Location: Reports: Other (No pain) Context: Reports: Other (As above) Associated Symptoms: Reports: Confusion. 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: Reports: Other (see below) (None) - Related Data Allergies Allergy/AdvReac Type Severity Reaction Status Date / Time Penicillins Allergy Rash Verified 12/02/19 00:55 Home Meds: Home Meds Aspirin 81 mg PO DAILY 07/20/16 [History] Insulin Glargine,Hum.Rec.Anlog [Shawn Isaacs] 34 units SUBCUT DAILY 12/13/18 [History] Valproic Acid 500 mg PO DAILY@1200 12/13/18 [History] Valproic Acid [Depakene] 250 mg PO BID@08,20 12/13/18 [History] Acetaminophen [Pain Relief] 650 mg PO Q4HR PRN 07/29/19 [History] Allopurinol [Zyloprim] 100 mg PO DAILY 12/02/19 [History] Benzonatate [Tessalon Perle] 200 mg PO Q6HR PRN 12/02/19 [History] Cefuroxime Axetil [Ceftin] 500 mg PO BID 12/02/19 [History] Labetalol HCl [Labetalol] 200 mg PO DAILY 12/02/19 [History] amLODIPine [Norvasc] 5 mg PO DAILY 12/02/19 [History] Past Medical History HEENT History: Reports: Impaired Vision, Other (See Below) Other HEENT History: The patient wears glasses. Nasal fracture with surgery as below. Cardiovascular History: Reports: Arrhythmia, CAD, Heart Failure, High Cholesterol, Hypertension, Other (See Below). Denies: CA Other Cardiovascular History: Evidence of possible lateral wall cardiac ischemia by resting EKG on 07/30/19 with no history of previous CA, workup, etc. Additional possible borderline CHF by previous chest x-rays. Occasional hypotension and bradycardia. Respiratory History: Reports: Asthma, Bronchitis, Recurrent, Sleep Apnea, Other (See Below) Other Respiratory History: Patient is noncompliant with her CPAP. Gastrointestinal History: Reports: None Genitourinary History: Reports: Acute Renal Failure, Chronic Renal Insuffiency, Urinary Incontinence, UTI, Recurrent, Other (See Below) Other Genitourinary History: Stage III diabetic nephropathy with previous history of acute renal failure and urosepsis in July 2016. Recurrent UTIs with secondary confusion. Musculoskeletal History: Reports: Arthritis, Fracture, Gout, Osteoarthritis, Other (See Below) Other Musculoskeletal History: Lt ankle fracture as a teenager with no surgery required. Neurological History: Reports: Headaches, Chronic, Migraines, Seizure, Other ( See Below) Other Neuro History: Congenital cognitive impairment. Endocrine/Metabolic History: Reports: Diabetes, Type II, Hypomagnesemia, IDDM, Obesity/BMI 30+, Other (See Below) Other Endocrine/Metabolic History: Hyperkalemia. Hypoalbuminemia. Hematologic History: Reports: Anemia Immunologic History: Reports: None Oncologic (Cancer) History: Reports: None Dermatologic History: Reports: Eczema, Other (See Below) Other Dermatologic History: Rosacea - Infectious Disease History Infectious Disease History: Reports: Chicken Pox, Influenza (Including influenza A hospitalization in November 2019.), Other (See Below) Other Infectious Disease History: Urosepsis in July 2016. - Past Surgical History Head Surgeries/Procedures: Reports: None HEENT Surgical History: Reports: Naso-Sinus Surgery, Oral Surgery, Other (See Below) Other HEENT Surgeries/Procedures: Multiple tooth extractions with complete upper dentures. Apparent nasal fracture surgery. Respiratory Surgical History: Reports: None GI Surgical History: Reports: None Musculoskeletal Surgical History: Reports: Carpal Tunnel, Other (See Below) Other Musculoskeletal Surgeries/Procedures:: Bilateral carpal tunnel release Oncologic Surgical History: Reports: None - Past Imaging History Past Imaging History: Reports: CAT Scan (CT of the head on 11/26/19 and 10/28/19.) , Mammogram (Last on 11/11/19), Ultrasound (Bilateral renal ultrasound on 07/19/16 ) Social & Family History - Tobacco Use Smoking Status *Q: Former Smoker Tobacco Use Within Last Twelve Months: No Years of Tobacco use: 36 Packs/Tins Daily: 1.5 Packs/Tins Daily Comment: Stop smoking in 2009. Used Tobacco, but Quit: Yes Smoking Cessation Information Provided To Patient: No Second Hand Smoke Exposure: No Second Hand Smoke Education Provided: No - Caffeine Use Caffeine Use: Reports: None - Living Situation & Occupation Living situation: Reports: with Family (Son) ED ROS GENERAL - Review of Systems Review Of Systems: Comprehensive ROS is negative, except as noted in HPI. ED EXAM, GENERAL - Physical Exam Exam: See Below Exam Limited By: No Limitations General Appearance: Alert, WD/WN, Moderate Distress Eye Exam: Bilateral Eye: EOMI, Normal Fundi, Normal Inspection (No nystagmus. Patient wearing glasses.), PERRL Ears: Normal External Exam, Normal Canal, Hearing Grossly Normal, Normal TMs Nose: Normal Inspection, Normal Mucosa, No Blood Throat/Mouth: Normal Inspection, Normal Lips, Normal Gums, Normal Oropharynx, Normal Voice, No Airway Compromise. No: Normal Teeth (Complete upper dentures) , Dysphagia, Perioral Cyanosis Head: Atraumatic, Normocephalic. No: Facial Swelling, Facial Tenderness, Sinus Tenderness Neck: Supple, Non-Tender, Full Range of Motion, Other (Congenital web neck). No : Carotid Bruit, Lymphadenopathy (L), Lymphadenopathy (R), Thyromegaly Respiratory/Chest: No Respiratory Distress, Lungs Clear, Normal Breath Sounds, No Accessory Muscle Use, Chest Non-Tender. No: Pleural Rub, Retractions Cardiovascular: Normal Peripheral Pulses, No Gallop, No JVD, No Murmur, No Rub, Bradycardia (Borderline. Regular rhythm). No: No Edema (Dependent edema as below), Gallop/S3, Gallop/S4, Friction Rub Peripheral Pulses: 2+: Radial (L), Radial (R) GI/Abdominal: Normal Bowel Sounds, Soft, Non-Tender, No Organomegaly, No Distention, No Abnormal Bruit, No Mass, Other (Obese). No: Guarding (Female) Exam: Deferred Rectal (Female) Exam: Deferred Back Exam: Normal Inspection, Full Range of Motion. No: CVA Tenderness (L), CVA Tenderness (R), Muscle Spasm Extremities: Normal Range of Motion, Non-Tender, Normal Capillary Refill, Pedal Edema (Trace+1 pedal/pretibial edema). No: Stuart's Sign Neurological: Alert, Oriented, CN II-XII Intact, Normal Gait, Normal Reflexes ( Negative Babinski's, finger to nose, and pronator rotation tests. No evidence of facial paresis, tongue deviation, orthostasis, etc.. Excellent reverse thought processes.), No Motor/Sensory Deficits, Other (Stable by history baseline cognitive impairment). No: Confused Psychiatric: Normal Affect, Normal Mood Skin Exam: Warm, Dry, Intact, Normal Color, No Rash. No: Diaphoretic, Wound/ Incision Lymphatic: No Adenopathy Course - Vital Signs Last Recorded V/S: Last Vital Signs Temp 36.4 C 12/02/19 01:07 Pulse 57 L 12/02/19 01:07 Resp 14 12/02/19 01:07 BP 103/50 L 12/02/19 01:07 Pulse Ox 98 12/02/19 01:07 Vital Signs - 24 hr 12/02/19 01:07 Temperature [ 36.4 C Temporal] Pulse, 57 L Peripheral [ Right Pulse Oximetry] Respiratory 14 Rate Blood Pressure 103/50 L [Right Upper Arm] O2 Sat by Pulse 98 Oximetry - Orders/Labs/Meds Labs: None Meds: None - Radiology Interpretation Free Text/Narrative:: None Departure - Departure Time of Disposition: 02:25 Disposition: Home, Self-Care 01 Condition: Good Clinical Impression: Influenza A, IDDM (insulin dependent diabetes mellitus), Renal insufficiency, UTI (urinary tract infection), bacterial, Cognitive impairment Asthma Qualifiers: Asthma severity: mild Asthma persistence: intermittent Asthma complication type : uncomplicated Qualified Code(s): J45.20 - Mild intermittent asthma, uncomplicated Coronary artery disease Qualifiers: Coronary Disease-Associated Artery/Lesion type: [place] artery [place] vs. transplanted heart: [place] heart Associated angina: without angina Qualified Code(s): I25.10 - Atherosclerotic heart disease of [place] coronary artery without angina pectoris Epilepsy Qualifiers: Epilepsy type: unspecified Intractability: not intractable Status epilepticus: without status epilepticus Qualified Code(s): G40.909 - Epilepsy, unspecified, not intractable, without status epilepticus Osteoarthritis Qualifiers: Osteoarthritis location: multiple joints Osteoarthritis type: primary Qualified Code(s): M15.0 - Primary generalized (osteo)arthritis - Discharge Information *PRESCRIPTION DRUG MONITORING PROGRAM REVIEWED*: Not Applicable *COPY OF PRESCRIPTION DRUG MONITORING REPORT IN PATIENT GREY: Not Applicable Instructions: Urinary Tract Infection, Adult Referrals: Shanel Feliz PA [Primary Care Provider] - Forms: ED Department Discharge Additional Instructions: 1. Followup with your regular provider in 10-14 days as directed for reevaluation and recommended repeat CBC, comprehensive metabolic panel, UA and urine for culture and sensitivity. Bring these discharge instructions with you to that visit. 2. Complete current antibiotic therapy with earlier appointment with your regular provider as above, if confusion reoccurs 3. Immediately after this visit verify that your cellular telephone's voicemail has been activated and is empty. Also verify that your home telephone 's answering machine is operating properly and has space to receive messages. Note that it is sometimes necessary for us to be able to contact you at a later date to discuss your medical care. 4. Please remember that we are ALWAYS here for you and want to answer any questions you may have. Feel free to call the hospital any time and we call you back KAY. Sepsis Event Note - Focused Exam Vital Signs: Vital Signs Temp Pulse Resp BP Pulse Ox 12/02/19 01:07 36.4 C 57 L 14 103/50 L 98 Date Exam was Performed: 12/02/19 Time Exam was Performed: 01:57 - Problem List & Annotations (1) UTI (urinary tract infection), bacterial SNOMED Code(s): 580289739 Code(s): N39.0 - URINARY TRACT INFECTION, SITE NOT SPECIFIED; A49.9 - BACTERIAL INFECTION, UNSPECIFIED Status: Acute Priority: High Current Visit: Yes Annotation/Comment:: Recent hospitalization at [facility] in [place] for influenza A and UTI with current Ceftin therapy. Patient does have a history of recurrent UTIs with secondary confusion. No significant confusion today by my exam as above/below. Neurological exam showed no significant changes with the patient back at baseline. Family is to continue to observe the patient closely with earlier follow-up depending on her clinical course as per discharge instructions. (2) Cognitive impairment SNOMED Code(s): 621071298 Code(s): R41.89 - OTH SYMPTOMS AND SIGNS W COGNITIVE FUNCTIONS AND AWARENESS Status: Chronic Priority: Medium Current Visit: Yes Annotation/Comment: : No evidence of significant confusion by my exam with the patient back at her normal baseline per history from the paramedics and the emergency room nurse, who knows this patient well. (3) Influenza A SNOMED Code(s): 532560128 Code(s): J10.1 - FLU DUE TO OTH IDENT INFLUENZA VIRUS W OTH RESP MANIFEST Status: Acute Priority: Medium Current Visit: Yes Onset Date: ~11/26/19 Annotation/Comment:: Recent hospitalization and discharge on 11/29 as above. Continue hygiene precautions. Observe for now (4) IDDM (insulin dependent diabetes mellitus) SNOMED Code(s): 55788271 Code(s): E11.9 - TYPE 2 DIABETES MELLITUS WITHOUT COMPLICATIONS; Z79.4 - FDC (CURRENT) USE OF INSULIN Status: Chronic Priority: Medium Current Visit: Yes Annotation/Comment:: Note the patient's insulin was apparently decreased during recent hospitalization. Accu-Chek by paramedics prior to patient's transfer was normal at 1 mg percent. Continue to observe closely by her regular providers. (5) Renal insufficiency SNOMED Code(s): 841347502, 580377725 Code(s): N28.9 - DISORDER OF KIDNEY AND URETER, UNSPECIFIED Status: Chronic Current Visit: Yes Onset Date: ~07/29/19 Annotation/Comment:: Diabetic nephropathy. Recent hospitalization at [facility] with discharge on 11/29 with blood work reviewed. Follow up with regular provider as per discharge instructions. (6) Asthma SNOMED Code(s): 983650871 Code(s): J45.909 - UNSPECIFIED ASTHMA, UNCOMPLICATED Status: Chronic Priority: Medium Current Visit: Yes Annotation/Comment:: Currently stable per patient with no recent fever, cough or bronchitic type symptoms despite recent hospitalization for influenza A. Current Ceftin therapy. Qualifiers: Asthma severity: mild Asthma persistence: intermittent Asthma complication type: uncomplicated Qualified Code(s): J45.20 - Mild intermittent asthma, uncomplicated (7) Osteoarthritis SNOMED Code(s): 690416808 Code(s): M19.90 - UNSPECIFIED OSTEOARTHRITIS, UNSPECIFIED SITE Status: Chronic Priority: Medium Current Visit: Yes Annotation/Comment:: Stable by history with history of hyperuricemia, however no recent gout attacks. Qualifiers: Osteoarthritis location: multiple joints Osteoarthritis type: primary Qualified Code(s): M15.0 - Primary generalized (osteo)arthritis - Problem List Review Problem List Initiated/Reviewed/Updated: Yes - Assessment/Plan Assessment:: As above Plan: As above. Extensive precautions were given to the patient, who is in agreement with the treatment plan. See Patient Instructions for further treatment and plan.
[2019-12-02 01:09] VITALS: BP 103/50; PULSE 57
== END 2019-12-02 02:20 | disposition home or self-care (01) ==
LOC: LL.ED 00:51
DX: G40.909 Epilepsy, unspecified, not intractable, without status epilepticus (principal); N39.0 Urinary tract infection, site not specified; B96.89 Other specified bacterial agents as the cause of diseases classified elsewhere; J10.1 Influenza due to other identified influenza virus with other respiratory manifestations; J45.20 Mild intermittent asthma, uncomplicated; I25.10 Atherosclerotic heart disease of native coronary artery without angina pectoris; M89.49 Other hypertrophic osteoarthropathy, multiple sites; G31.84 Mild cognitive impairment of uncertain or unknown etiology; I13.0 Hypertensive heart and chronic kidney disease with heart failure and stage 1 through stage 4 chronic kidney disease, or unspecified chronic kidney disease; E11.22 Type 2 diabetes mellitus with diabetic chronic kidney disease; N18.9 Chronic kidney disease, unspecified; I50.9 Heart failure, unspecified; D63.1 Anemia in chronic kidney disease; E78.00 Pure hypercholesterolemia, unspecified; E11.21 Type 2 diabetes mellitus with diabetic nephropathy; E66.9 Obesity, unspecified; Z68.35 Body mass index [BMI] 35.0-35.9, adult; Z87.891 Personal history of nicotine dependence; Z88.0 Allergy status to penicillin; Z79.82 Long term (current) use of aspirin; Z79.4 Long term (current) use of insulin; Z79.899 Other long term (current) drug therapy
CPT/HCPCS: 99285

== ENCOUNTER 2021-07-29 09:55 | Emergency (ER) | payer MEDICAID ==
[2021-07-29 09:58] VITALS: BP 134/61; PULSE 64
[2021-07-29] MEDS ORDERED: Fluconazole 200 MG Tab PO ONE (10:10)
--- NOTE | 2021-07-29 10:11 | EDM.PDOC ---
ED HPI GENERAL MEDICAL PROBLEM - General Chief Complaint: Laceration Stated Complaint: vaginal laceration Time Seen by Provider: 07/29/21 10:09 Source of Information: Reports: Patient History Limitations: Reports: No Limitations - History of Present Illness INITIAL COMMENTS - FREE TEXT/NARRATIVE: Patient concerned that she might have scratched her pubic area with a ring. Denies other acute complaints. Incident happened last night. - Related Data Allergies Allergy/AdvReac Type Severity Reaction Status Date / Time Penicillins Allergy Rash Verified 07/29/21 10:58 Home Meds: Home Meds Aspirin 81 mg PO DAILY 07/20/16 [History] Insulin Glargine,Hum.Rec.Anlog [Toujeo Solostar] 34 units SUBCUT DAILY 12/13/18 [History] Valproic Acid 500 mg PO DAILY@1200 12/13/18 [History] Valproic Acid [Depakene] 250 mg PO BID@08,20 12/13/18 [History] Acetaminophen [Pain Relief] 650 mg PO Q4HR PRN 07/29/19 [History] Benzonatate [Tessalon Perle] 200 mg PO Q6HR PRN 12/02/19 [History] Cefuroxime Axetil [Ceftin] 500 mg PO BID 12/02/19 [History] Labetalol HCl [Labetalol] 200 mg PO DAILY 12/02/19 [History] allopurinoL [Zyloprim] 100 mg PO DAILY 12/02/19 [History] amLODIPine [Norvasc] 5 mg PO DAILY 12/02/19 [History] Past Medical History HEENT History: Reports: Impaired Vision, Other (See Below) Other HEENT History: The patient wears glasses. Nasal fracture with surgery as below. Cardiovascular History: Reports: Arrhythmia, CAD, Heart Failure, High Cholesterol, Hypertension, Other (See Below). Denies: VA Other Cardiovascular History: Evidence of possible lateral wall cardiac ischemia by resting EKG on 07/30/19 with no history of previous VA, workup, etc. Additional possible borderline CHF by previous chest x-rays. Occasional hypotension and bradycardia. Respiratory History: Reports: Asthma, Bronchitis, Recurrent, Sleep Apnea, Other (See Below) Other Respiratory History: Patient is noncompliant with her CPAP. Gastrointestinal History: Reports: None Genitourinary History: Reports: Acute Renal Failure, Chronic Renal Insuffiency, Urinary Incontinence, UTI, Recurrent, Other (See Below) Other Genitourinary History: Stage III diabetic nephropathy with previous history of acute renal failure and urosepsis in July 2016. Recurrent UTIs with secondary confusion. Musculoskeletal History: Reports: Arthritis, Fracture, Gout, Osteoarthritis, Other (See Below) Other Musculoskeletal History: Lt ankle fracture as a teenager with no surgery required. Neurological History: Reports: Headaches, Chronic, Migraines, Seizure, Other (See Below) Other Neuro History: Congenital cognitive impairment. Psychiatric History: Reports: Other (See Below) Endocrine/Metabolic History: Reports: Diabetes, Type II, Hypomagnesemia, IDDM, Obesity/BMI 30+, Other (See Below) Other Endocrine/Metabolic History: Hyperkalemia. Hypoalbuminemia. Hematologic History: Reports: Anemia Immunologic History: Reports: None Oncologic (Cancer) History: Reports: None Dermatologic History: Reports: Eczema, Other (See Below) Other Dermatologic History: Rosacea - Infectious Disease History Infectious Disease History: Reports: Chicken Pox, Influenza (Including influenza A hospitalization in November 2019.), Other (See Below) Other Infectious Disease History: Urosepsis in July 2016. - Past Surgical History Head Surgeries/Procedures: Reports: None HEENT Surgical History: Reports: Naso-Sinus Surgery, Oral Surgery, Other (See Below) Other HEENT Surgeries/Procedures: Multiple tooth extractions with complete upper dentures. Apparent nasal fracture surgery. Respiratory Surgical History: Reports: None GI Surgical History: Reports: None Musculoskeletal Surgical History: Reports: Carpal Tunnel, Other (See Below) Other Musculoskeletal Surgeries/Procedures:: Bilateral carpal tunnel release Oncologic Surgical History: Reports: None - Past Imaging History Past Imaging History: Reports: CAT Scan (CT of the head on 11/26/19 and 10/28/19.), Mammogram (Last on 11/11/19), Ultrasound (Bilateral renal ultrasound on 07/19/16) Social & Family History - Caffeine Use Caffeine Use: Reports: None - Living Situation & Occupation Living situation: Reports: with Family (Son) ED ROS GENERAL - Review of Systems Review Of Systems: See Below Skin: Reports: Other (reports abrasion pubic area) Free Text/Narrative/Comment: Patient denies other acute changes on ROS ED EXAM, SKIN/RASH Exam: See Below Exam Limited By: No Limitations General Appearance: Alert, WD/WN, No Apparent Distress Eye Exam: Bilateral Eye: EOMI, PERRL Ears: Hearing Grossly Normal Nose: No: Nasal Deformity, Nasal Swelling, Nasal Drainage Throat/Mouth: Normal Lips, Normal Voice, No Airway Compromise Head: Atraumatic, Normocephalic Neck: Supple Respiratory/Chest: No Respiratory Distress GI/Abdominal: Soft Neurological: Alert, Oriented, Normal Gait Psychiatric: Normal Affect, Normal Mood Skin: Other (Patient had bandaid over pubic mons. When removed no obvious scratch/injury noted. She did have reddened labia/confluent with well demarcated border ) Course - Vital Signs Last Recorded V/S: Last Vital Signs Temp 35.8 C L 07/29/21 09:57 Pulse 64 07/29/21 09:57 Resp 16 07/29/21 09:57 BP 134/61 07/29/21 09:57 Pulse Ox 98 07/29/21 09:57 - Orders/Labs/Meds Meds: Medications Discontinued Medications Generic Name Dose Route Start Last Admin Trade Name Freq PRN Reason Stop Dose Admin Fluconazole 200 mg 07/30/21 10:10 Fluconazole 200 Mg Tab PO 07/30/21 10:11 ONETIME ONE Fluconazole 200 mg 07/29/21 10:10 07/29/21 10:21 Fluconazole 200 Mg Tab PO 07/29/21 10:11 200 mg ONETIME ONE Administration Nystatin 1 gm 07/29/21 10:14 07/29/21 10:19 Nystatin Topical Powder 15 Gm Bottle TOP 07/29/21 10:15 1 applic ONETIME ONE Administration - Re-Assessments/Exams Free Text/Narrative Re-Assessment/Exam: 07/29/21 15:38 no obvious scratch or laceration identified in area patient said she injured last evening. However she did have skin changes suggestive of candidal skin infection in area of labia. Given single Diflucan and started on topical Nystatin powder. Nursing staff applied first dose and educated patient on how to apply on her own. To follow up with PCP if rash does not improve over the next week. Departure - Departure Time of Disposition: 10:10 Disposition: Home, Self-Care 01 Condition: Good Clinical Impression: Tinea - Discharge Information *PRESCRIPTION DRUG MONITORING PROGRAM REVIEWED*: Not Applicable *COPY OF PRESCRIPTION DRUG MONITORING REPORT IN PATIENT GREY: Not Applicable Instructions: Nystatin topical powder Referrals: Shanel Feliz PA [Primary Care Provider] - Forms: ED Department Discharge Additional Instructions: Apply powder in groin area twice a day. Get rechecked at your clinic if not better in 5 days. Sepsis Event Note (ED) - Evaluation Sepsis Screening Result: No Definite Risk - Focused Exam Vital Signs: Vital Signs Temp Pulse Resp BP Pulse Ox 07/29/21 09:57 35.8 C L 64 16 134/61 98
[2021-07-29] MEDS ORDERED: Nystatin Topical Powder 15 GM Bottle TOP ONE (10:14)
[2021-07-30] MEDS ORDERED: Fluconazole 200 MG Tab PO ONE (10:10)
== END 2021-07-29 10:35 | disposition home or self-care (01) ==
LOC: LL.ED 09:55
DX: B35.9 Dermatophytosis, unspecified (principal); I25.10 Atherosclerotic heart disease of native coronary artery without angina pectoris; I13.0 Hypertensive heart and chronic kidney disease with heart failure and stage 1 through stage 4 chronic kidney disease, or unspecified chronic kidney disease; E11.22 Type 2 diabetes mellitus with diabetic chronic kidney disease; N18.9 Chronic kidney disease, unspecified; I50.9 Heart failure, unspecified; N17.9 Acute kidney failure, unspecified; J45.909 Unspecified asthma, uncomplicated; E11.21 Type 2 diabetes mellitus with diabetic nephropathy; M10.9 Gout, unspecified; E66.9 Obesity, unspecified; Z88.0 Allergy status to penicillin; Z79.82 Long term (current) use of aspirin; Z79.4 Long term (current) use of insulin; Z79.899 Other long term (current) drug therapy
CPT/HCPCS: 99283; A9270

== ENCOUNTER 2021-12-05 12:13 | Emergency (ER) | payer MEDICAID ==
[2021-12-05] MEDS ORDERED: Iopamidol 612 MG/ML 100 ML Bottle IVPUSH STA (13:07)
[2021-12-05 13:40] LABS: CHLORIDE,CL 84 mmol/L (98-107)
[2021-12-05] MEDS ORDERED: Sodium Chloride 0.9% 1,000 ML IV ONE (13:40)
[2021-12-05 13:41] LABS: PTT,PARTIAL THROMBOPLSTIN TIME 34.5 SEC (23.6-29.8)
[2021-12-05 13:43] LABS: ANION GAP 17.6 meq/L (7-15); SODIUM,NA 120 mmol/L (136-145)
[2021-12-05] MEDS ORDERED: Lactated Ringers 1,000 ML IV ONE (13:45)
[2021-12-05] MEDS ORDERED: Sodium Chloride 0.9% 1,000 ML IV SCH ×2 (13:45→15:30)
[2021-12-05 15:23] LABS: BARBITURATE SCREEN,URINE NEGATIVE (NEGATIVE); BENZODIAZEPINES SCREEN,URINE NEGATIVE (NEGATIVE); EDDP,URINE SCREEN NEGATIVE (NEGATIVE); TCA SCREEN,URINE NEGATIVE (NEGATIVE); THC SCREEN,URINE 50 NG/ML NEGATIVE (NEGATIVE)
[2021-12-05 15:28] LABS: BUPRENORPHINE SCREEN,URINE NEGATIVE (NEGATIVE)
[2021-12-05] MEDS ORDERED: cefTRIAXone 1 GM in Sodium Chloride 0.9% 100 ML IV ONE (15:50)
[2021-12-05] MEDS ORDERED: cefTRIAXone 1 GM Vial ONE (16:08)
[2021-12-05] MEDS ORDERED: Sodium Chloride 0.9% 10 ML Syringe FLUSH PRN (16:17)
[2021-12-05 16:36] VITALS: BP 146/69; PULSE 57
== END 2021-12-05 16:50 ==
LOC: LL.ED 12:13
DX: R17 Unspecified jaundice (principal); E87.1 Hypo-osmolality and hyponatremia; N39.0 Urinary tract infection, site not specified; K74.60 Unspecified cirrhosis of liver; I13.0 Hypertensive heart and chronic kidney disease with heart failure and stage 1 through stage 4 chronic kidney disease, or unspecified chronic kidney disease; N18.4 Chronic kidney disease, stage 4 (severe); I50.9 Heart failure, unspecified; E78.00 Pure hypercholesterolemia, unspecified; E11.9 Type 2 diabetes mellitus without complications; Z79.899 Other long term (current) drug therapy; Z79.82 Long term (current) use of aspirin; Z88.0 Allergy status to penicillin; Z88.8 Allergy status to other drugs, medicaments and biological substances
CPT/HCPCS: 36415; 74170; 80053; 80074; 80143; 80305-QW; 80307; 81001; 82140; 82248; 82977; 83615; 83690; 83735; 85025; 85610; 85730; 86140; 86301; 86663; 86664; 86665; 87086; 87389; 87496; 96365; 99284; 99285-25; J0696; J3490; J7030; J7120; Q9967

== ENCOUNTER 2023-04-01 23:16 | Emergency (ER) | payer MEDICAID ==
[2023-04-01] MEDS ORDERED: Acetaminophen 500 MG Tab PO ONE (23:41)
[2023-04-02 01:26] VITALS: BP 194/90; PULSE 61
== END 2023-04-02 01:20 ==
LOC: LL.ED 23:16
DX: M53.3 Sacrococcygeal disorders, not elsewhere classified (principal); M54.2 Cervicalgia; I25.10 Atherosclerotic heart disease of native coronary artery without angina pectoris; I13.0 Hypertensive heart and chronic kidney disease with heart failure and stage 1 through stage 4 chronic kidney disease, or unspecified chronic kidney disease; E11.22 Type 2 diabetes mellitus with diabetic chronic kidney disease; I50.9 Heart failure, unspecified; N18.9 Chronic kidney disease, unspecified; E78.00 Pure hypercholesterolemia, unspecified; E11.40 Type 2 diabetes mellitus with diabetic neuropathy, unspecified; M19.90 Unspecified osteoarthritis, unspecified site; E66.9 Obesity, unspecified; Z68.31 Body mass index [BMI] 31.0-31.9, adult; Z88.8 Allergy status to other drugs, medicaments and biological substances; Z88.1 Allergy status to other antibiotic agents; Z91.018 Allergy to other foods; Z79.82 Long term (current) use of aspirin; Z79.899 Other long term (current) drug therapy; Z79.84 Long term (current) use of oral hypoglycemic drugs; Z87.891 Personal history of nicotine dependence; W17.89XA Other fall from one level to another, initial encounter
CPT/HCPCS: 72040; 72220; 99284; A9270-GY